=== PATIENT | male | born 1930 | race Caucasian/White ===

== ENCOUNTER 2016-06-12 20:29 | Emergency (ER) | payer OTHER, MEDICARE ==
[~2016-06-12 20:29] MED LIST: AMARYL 2 MG2 MG PO; AMARYL1 MG PO; AMARYL2 M1 PO; ASPIRIN EC81 M1 PO; ATENOLOL25 MG PO; ATENOLOL50 MG PO; COUMADIN 5 MG TA5 MG PO; COUMADIN2.5 M1 PO; GLIMEPIRIDE4 MG PO; IMDUR60 MG PO; ISORDIL PO; ISOSORBIDE MONO30 M1 PO; JANUVIA 50MG50 MG PO; LASIX20 M1 PO; LASIX20 MG PO; LYRICA25 MG PO; NAMENDA XR21 M1 PO; NAMENDA10 MG PO; NITROSTAT 0.4MG1 BO2 SL; SIMVASTATIN20 M2 PO; TOPROL XL 50MG50 MG PO; VALTREX 500MG500 MG PO; ZETIA10 M1 PO; ZOCOR20 MG PO; ZOVIRAX800 MG
[2016-06-12 20:34] VITALS: BP 110/67
--- NOTE | 2016-06-12 20:56 | ED GENERAL ADULT ---
History of Present Illness General Chief Complaint: Epistaxis/Nasal Foreign Body Stated Complaint: BIBA NOSEBLEED Source: patient Exam Limitations: no limitations Vital Signs & Intake/Output Vital Signs & Intake/Output Vital Signs Date Time Temp Pulse Resp B/P Pulse O2 O2 Flow FiO2 Ox Delivery Rate 06/12 2033 96.5 65 18 110/67 94 Room Air Allergies Coded Allergies: sitagliptin (UNKNOWN 08/08/15) Reconcile Medications Aspirin (Aspi-Cor) 81 MG CTB 1 TAB PO DAILY HEART (Reported) Ezetimibe (Zetia) 10 MG TAB 1 TAB PO DAILY CHOLESTEROL (Reported) Furosemide (Lasix) 20 MG TAB 1 TAB PO DAILY FLUID (Reported) Glimepiride (Amaryl) 2 MG TAB 1 TAB PO BID DIABETES (Reported) Isosorbide Mononitrate (Isosorbide Mononitrate ER) [address] 1 TAB PO DAILY ANGINA (Reported) MEMANTINE HCL (Namenda XR) 28 MG CER 1 CAP PO DAILY DEMENTIA (Reported) Metoprolol Succ XL (Toprol Xl 50MG Tab) 50 MG TAB 50 MG PO DAILY CARDIAC Pregabalin (Lyrica) 25 MG CAP 25 MG PO AT BEDTIME shingles pain Simvastatin 20 MG TAB 1 TAB PO DAILY CHOLESTEROL (Reported) Warfarin Sodium (Coumadin) 2.5 MG TAB 1 TAB PO AD BLOOD THINNER (Reported) Triage Note: BIBA FROM [facility] FOR NOSEBLEED X1 WEEK. BLEEDING WOULD NOT STOP TONIGHT. ON COUMADIN FOR RUE DVT. DID NOT RECEIVE 9PM DOSE TONIGHT Triage Nurses Notes Reviewed? yes Onset: Gradual Duration: intermittent Timing: recent history Injury Environment: home Severity: moderate No Modifying Factors: none HPI: Patient is an 85-year-old male who was recently diagnosed with a blood clot in his right upper extremity on Coumadin presenting to the emergency department with chief complaint of nosebleed has been intermittent for the past one week. Patient reports a take out worse this evening so [facility]. Denies any nausea vomiting fevers or chills. No headaches or visual changes. Denies any trauma to the nose. He reports that that usually I'd of the left naris. (ADALBERTO SHELDON) Past History Medical History Any Pertinent Medical History? 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 Hx Contributory? No (ADALBERTO SHELDON) Review of Systems Review of Systems Constitutional: Reports: no symptoms. Comments Review of systems: See HPI, All other systems negative. Constitutional, no chills fever or weight loss HEENT: No visual changes no sore throat no congestion Cardiovascular: No chest pain ,palpitation Skin, no jaundice no rashes Respiratory: No dyspnea cough sputum or hemoptysis GI: No nausea no vomiting : No dysuria No hematuria Muscle skeletal: no back pain, no neck pain, Neurologic: No numbness no confusion Psych: No stress anxiety or depression,. Heme/endocrine: On Coumadin Immunology: No splenectomy or history of AIDS (ADALBERTO SHELDON) Physical Exam Physical Exam General Appearance: well developed/nourished, no apparent distress, alert, awake , comfortable Comments: Well-developed well-nourished person in no acute distress HEENT: extraocular motion intact, no nystagmus. Pupils equally round and reactive to light and accommodation. Nose is atraumatic. , Dried blood in the left naris. External auditory canal and Tympanic membranes clear. Pharynx normal. No swelling or edema. Neck: Normal inspection Back: Nontender, no CVA tenderness. Full range of motion Cardiovascular: Regular rate and rhythms no murmurs rubs or gallops, normal JVP Respiratory: No respiratory distress. Extremity: No edema Neuro: Alert oriented x3, cranial nerves II through XII grossly intact. Skin: No appreciable rash on exposed skin, skin is warm and dry. Psych: Mood and affect is normal, memory and judgment is normal. Core Measures ACS in differential dx? No CVA/TIA Diagnosis: No Severe Sepsis Present: No Septic Shock Present: No (ADALBERTO SHELDON) Progress Differential Diagnoses I considered the following diagnoses in my evaluation of the patient: Anterior epistaxis, posterior epistaxis, hypocoagulable state Plan of Care: Current Medications Sig/Ruthie Start time Last Medication Dose Stop Time Status Admin Oxymetazoline HCl 2 SPRAY ONCE ONE 06/12 2099 UNVr (Afrin) 06/12 2100 Initial ED EKG: none Comments: GIVEN intranasal Afrin. Spoke with primary care physician, Dr. Spaulding. They will recheck INR tomorrow. (ADALBERTO SHELDON) Departure Departure Time of Disposition: 2116 Disposition: HOME OR SELF CARE Condition: Stable Clinical Impression Primary Impression: Epistaxis Referrals: LEONIDES SPAULDING MD (PCP/Family) Additional Instructions: Follow-up with Dr. Spaulding, they will repeat your INR tomorrow. Return for worsening symptoms or concerns. YOU MAY NEED ENT SONSULT IF SYMPTOMS PERSIST. Departure Forms: Customer Survey General Discharge Information (ADALBERTO SHELDON) PA/CIVIL PROJECT ENGINEER Co-Sign Statement Statement: ED Attending supervision documentation- [X] I saw and evaluated the patient. I have also reviewed all the pertinent lab results and diagnostic results. I agree with the findings and the plan of care as documented in the PA's/CIVIL PROJECT ENGINEER's documentation. [X] I have reviewed the ED Record and agree with the PA's/CIVIL PROJECT ENGINEER's documentation. [] Additions or exceptions (if any) to the PAs/CIVIL PROJECT ENGINEER's note and plan are summarized below: [] (REX RODRIGEZ,SUSANNE) Critical Care Note Critical Care Note Critical Care Time: non-applicable (ADALBERTO SHELDON)
== END 2016-06-12 22:07 ==
LOC: ERH 20:29
DX: R04.0 Epistaxis (principal)
CPT/HCPCS: 99282

== ENCOUNTER 2016-06-17 06:25 | Emergency (ER) | payer OTHER, MEDICARE ==
[~2016-06-17] VITALS: Ht 167.6 cm; Wt 68.0 kg
--- NOTE | 2016-06-17 06:45 | ED MVC/FALL/TRAUMA COMPLAINT ---
See Addendum History of Present Illness General Chief Complaint: Fall Stated Complaint: BIB FALL Source: patient, EMS Exam Limitations: no limitations Vital Signs & Intake/Output Vital Signs & Intake/Output Vital Signs Date Time Temp Pulse Resp B/P Pulse O2 O2 Flow FiO2 Ox Delivery Rate 06/17 0821 97.2 62 18 97/53 95 Room Air 06/17 0631 96.8 57 18 118/58 93 Room Air Allergies Coded Allergies: sitagliptin (UNKNOWN 08/08/15) Triage Nurses Notes Reviewed? yes Onset: Abrupt Duration: minute(s): (30) Timing: single episode today Severity: moderate Injuries/Fall Location: head Method of Injury: fall Loss of Consciousness: no loss of consciousness No Modifying Factors: none Associated Symptoms: dizziness, BRUISING HPI: 85 year old male who presents to the ER after a fall at the [facility]. The patient states he is not supposed to walk on his own but was trying to get out of bed and hit the right side of his head on the bed rail. No loss of consciousness. He is on coumadin. Patient denies neck pain, chest pain, back pain or hip pain. He has some chronic right shoulder pain from before the fall. He admits to some dizziness after the fall. (REX RODRIGEZ,SUSANNE) Reconcile Medications Allopurinol 100 MG TABLET 1 TAB PO DAILY UNKNOWN (Reported) Aspirin (Ecotrin*) 81 MG TABLET.DR 1 TAB PO DAILY HEART HEALTH (Reported) Atorvastatin Calcium 20 MG TABLET 1 TAB PO 1700 CHOLESTEROL (Reported) Ezetimibe (Zetia) 10 MG TABLET 1 TAB PO DAILY CHOLESTEROL (Reported) Finasteride 5 MG TABLET 1 TAB PO DAILY PROSTATE (Reported) Furosemide (Lasix) 20 MG TABLET 1 TAB PO DAILY WATER PILL (Reported) Gabapentin 100 MG CAPSULE 1 CAP PO TID UNKNOWN (Reported) Glimepiride (Amaryl) 2 MG TABLET 1 TAB PO BID DM (Reported) Insulin Lispro (Humalog) 100 UNIT/ML VIAL DIABETES (Reported) Isosorbide Mononitrate (Isosorbide Mononitrate ER) 30 MG TAB.ER.24H 1 TAB PO DAILY HEART (Reported) Loratadine 10 MG TABLET 1 TAB PO QPM ALLERGIES (Reported) Memantine HCl (Namenda XR) 21 MG CAP.SPR.24 1 CAP PO QPM DEMENTIA (Reported) Metoprolol Succinate 50 MG TAB.ER.24H 1.5 TAB PO DAILY HEART (Reported) Ranitidine (Ranitidine HCl) 150 MG TABLET 1 TAB PO BID GI (Reported) Simvastatin (Simvastatin*) 20 MG TABLET 1 TAB PO QPM CHOLESTEROL (Reported) Sodium Chloride ([place] Saline) 0.65 % SPRAY 1 SPRAY NASB BID NASAL (Reported) Sodium Chloride (Saline Mist) 0.65 % SPRAY 1 SPRAY DEMARCO 4 TIMES/DAY ALLERGIES (Reported) Warfarin Sodium (Coumadin) 2.5 MG TABLET 1 TAB PO 1700 BLOOD THINNER ( Reported) (JUAN CORBETT DO) Past History Travel History Traveled to [place] past 21 day No Medical History Any Pertinent Medical History? 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 Hx Contributory? No (SUSANNE HOOPER MD) Review of Systems Review of Systems Constitutional: Denies: chills, fever. Eyes: Denies: blurred vision. Ears, Nose, Throat, Mouth: Reports: no symptoms. Respiratory: Denies: cough, short of breath, sputum production. Cardiovascular: Denies: chest pain, palpitations. Gastrointestinal/Abdominal: Denies: abdominal pain. Genitourinary: Reports: no symptoms. Musculoskeletal: Reports: no symptoms. Skin: Reports: no symptoms. Neurological/Psychological: Reports: ataxia, headache (right sided). Denies: confusion. All Other Systems: Reviewed and Negative (SUSANNE HOOPER MD) Physical Exam Physical Exam General Appearance: well developed/nourished, alert, awake, mild distress Head: RIGHT FACIAL BRUISING, NO ORBITAL RIM TENDERNESS Eyes: Bilateral: normal appearance, PERRL, EOMI. Ears, Nose, Throat, Mouth: HARD OF HEARING Neck: normal inspection, supple, full range of motion Respiratory: normal breath sounds, chest non-tender, no respiratory distress Cardiovascular: regular rate/rhythm Peripheral Pulses: 2+ radial (R), 2+ radial (L) Gastrointestinal: soft, non-tender Extremities: normal range of motion, NO TENDERNESS WITH ROM ALL 4 EXTREMITIES Neurologic/Psych: no motor/sensory deficits, awake, alert Core Measures ACS in differential dx? No Severe Sepsis Present: No Septic Shock Present: No (SUSANNE HOOPER MD) Progress Differential Diagnosis: C/T/L spine injury, ICH, ARHYTHMIA Plan of Care: Orders Procedure Date/time Status Heart Healthy Diet 06/17 L Active TROPONIN LEVEL 06/17 650 Complete PARTIAL THROMBOPLASTIN TIME 06/17 650 Complete PROTHROMBIN TIME 06/17 650 Complete MAGNESIUM 06/17 650 Complete COMPREHENSIVE METABOLIC PANEL 06/17 650 Complete CBC WITHOUT DIFFERENTIAL 06/17 650 Complete EKG 06/17 06 Active Laboratory Tests 06/17/16 0701: Anion Gap 11, Estimated GFR 30 L, BUN/Creatinine Ratio 18.1, Glucose 127 H, Calcium 8.4, Magnesium 2.1, Total Bilirubin 0.9, AST 18, ALT 31, Alkaline Phosphatase 156 H, Troponin I < 0.01, Total Protein 6.9, Albumin 3.2 L, Globulin 3.7, Albumin/Globulin Ratio 0.9 L, PT 25.1 H, INR 2.41 H, APTT 36, CBC w Diff NO MAN DIFF REQ, RBC 3.16 L, MCV 94.8 H, MCH 30.9, RDW 17.4 H, MPV 6.8 L, Gran % 51.6, Lymphocytes % 25.4, Monocytes % 13.7 H, Eosinophils % 8.9 H, Basophils % 0.4, Absolute Granulocytes 3.2, Absolute Lymphocytes 1.6, Absolute Monocytes 0.8 H, Absolute Eosinophils 0.5, Absolute Basophils 0, PUBS MCHC 32.6 L Diagnostic Imaging: Viewed by Me: CT Scan. Discussed w/RAD: CT Scan. Hand-Off Endorsed To: JUAN CORBETT DO Endorsed Time: 0700 Pending: CT (SUSANNE HOOPER MD) Departure Departure Disposition: STILL A PATIENT Condition: Stable Clinical Impression Primary Impression: Head injury Referrals: LEONIDES CARBALLO MD (PCP/Family) Departure Forms: Customer Survey General Discharge Information (REX RODRIGEZ,SUSANNE) Departure Comments 06/17/16 9 AM The patient was signed out to me by Dr. Hooper. His head CT is negative. Labs are essentially unremarkable. I will give instructions regarding delayed hemorrhage. The patient will follow-up with his doctor in 72 hours. (JUAN CORBETT DO)
--- NOTE | 2016-06-17 07:28 | CT SCAN REPORT ---
EXAMINATION: NONCONTRAST HEAD CT NONCONTRAST CERVICAL SPINE CT INDICATION INFORMATION: Fall. Hit head on right side. On Coumadin. COMPARISON: 11/06/2011 TECHNIQUE: Separate noncontrast CT examinations of the head and cervical spine were performed. Coronal and sagittal images were created for each examination at the technologist workstation. FINDINGS: Head: There is no evidence of acute intracranial hemorrhage or territorial infarction. No abnormal mass effect or midline shift is seen. 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 Porter to white matter differentiation is otherwise well preserved. No extra-axial fluid collections are identified. No hydrocephalus. Proportional prominence of the ventricles and sulcal spaces is consistent with moderate volume loss. Patchy periventricular and deep white matter hypoattenuation is consistent with moderate small vessel ischemic changes. The osseous structures and soft tissues are normal. The mastoid air cells are well aerated. Mild opacification of the ethmoid air cells and right maxillary sinus. The remaining visualized paranasal sinuses are well aerated. Cervical spine: There is degenerative anterolisthesis of C4 on C5 and retrolisthesis of C5 on C6. There is straightening of the normal cervical lordosis. There is otherwise anatomic alignment of the vertebral bodies and posterior elements. The atlantoaxial and atlantooccipital articulations are intact. Vertebral body heights are maintained. There is multilevel intervertebral disc space narrowing with endplate osteophyte formation and facet arthropathy. No evidence of acute fracture. No prevertebral soft tissue swelling. There is biapical pleural thickening of the lungs with minimal paraseptal emphysema. The thyroid gland is unremarkable. IMPRESSION: 1. No acute intracranial findings. Moderate volume loss with small vessel ischemic change. 2. No acute fracture or malalignment of the cervical spine. Moderate degenerative changes.
[2016-06-17 07:41] LABS: ABSOLUTE BASOPHIL COUNT 0 /CUMM (0.0-0.2); ABSOLUTE EOSINOPHIL COUNT 0.5 /CUMM (0.0-0.7); ABSOLUTE GRANULOCYTE CT 3.2 /CUMM (1.4-6.5); ABSOLUTE LYMPH COUNT 1.6 /CUMM (1.2-3.4); ABSOLUTE MONOCYTE COUNT 0.8 /CUMM (0.10-0.60); BASOPHIL % 0.4 % (0.0-2.0); EOSINOPHIL % 8.9 % (0-5); GRANULOCYTE % 51.6 % (42.2-75.2); HEMATOCRIT 29.9 % (42-52); MEAN CORPUSCULAR HGB 30.9 PG (27.0-31.0); MEAN CORPUSCULAR HGB CONC 32.6 G/DL (33.0-37.0); MEAN CORPUSCULAR VOLUME 94.8 FL (80.0-94.0); MEAN PLATELET VOLUME 6.8 FL (7.4-10.4); PLATELET COUNT 231 /CUMM (130-400); RBC DISTRIBUTION WIDTH 17.4 % (11.5-14.5); RED BLOOD CELL CT 3.16 /CUMM (4.70-6.10); WHITE BLOOD CELL COUNT 6.1 /CUMM (4.8-10.8)
[2016-06-17] MEDS ORDERED: ATORVASTATIN CA20 M1 PO (08:01)
[2016-06-17] MEDS ORDERED: ALLOPURINOL100 M1 PO (08:01)
[2016-06-17] MEDS ORDERED: AYR SALINE50 ML NASB (08:03)
[2016-06-17] MEDS ORDERED: FINASTERIDE5 M1 PO (08:03)
[2016-06-17] MEDS ORDERED: GABAPENTIN100 M2 PO (08:04)
[2016-06-17] MEDS ORDERED: HUMALOG100 UNIT/2 SC (08:05)
[2016-06-17] MEDS ORDERED: LORATADINE10 M1 PO (08:06)
[2016-06-17] MEDS ORDERED: METOPROLOL SUCC50 M2 PO (08:07)
[2016-06-17] MEDS ORDERED: RANITIDINE HCL150 MG PO (08:10)
[2016-06-17] MEDS ORDERED: SALINE MIST44 ML NAS (08:11)
[2016-06-17 08:21] VITALS: BP 97/53
[2016-06-17 08:42] LABS: PT 25.1 SEC (9.4-12.5); PTT 36 SEC (25-37)
== END 2016-06-17 10:22 ==
LOC: ERH 06:25
PROVIDERS: Emergency Medicine
DX: S09.90XA Unspecified injury of head, initial encounter (principal); R42 Dizziness and giddiness; W06.XXXA Fall from bed, initial encounter; Z79.01 Long term (current) use of anticoagulants; Z79.82 Long term (current) use of aspirin; Z79.4 Long term (current) use of insulin; N18.3 Chronic kidney disease, stage 3 (moderate)
CPT/HCPCS: 93005; 93010

== ENCOUNTER 2016-09-15 22:32 | Inpatient (IN) | payer OTHER, MEDICARE ==
[~2016-09-15] VITALS: Ht 170.2 cm; Wt 74.0 kg
[~2016-09-15 22:32] MED LIST changes: +ALLOPURINOL100 M1 PO; +ATORVASTATIN CA20 M1 PO; +AYR SALINE50 ML NASB; +FINASTERIDE5 M1 PO; +GABAPENTIN100 M2 PO; +HUMALOG100 UNIT/2 SC; +LORATADINE10 M1 PO; +METOPROLOL SUCC50 M2 PO; +RANITIDINE HCL150 MG PO; +SALINE MIST44 ML NAS
--- NOTE | 2016-09-15 22:38 | ED DYSPNEA/ASTHMA COMPLAINT ---
History of Present Illness General Chief Complaint: General Adult Stated Complaint: BIBA WITH CONFUSION,PROBLEM BREATHI Source: patient Exam Limitations: confusion, dementia Vital Signs & Intake/Output Vital Signs & Intake/Output Vital Signs Date Time Temp Pulse Resp B/P B/P Pulse O2 O2 Flow FiO2 Mean Ox Delivery Rate 09/16 0056 101.7 108 24 113/68 93 Nasal 2.0L Cannula 09/15 2258 98.5 100 24 109/67 89 Room Air Allergies Coded Allergies: sitagliptin (UNKNOWN 08/08/15) Reconcile Medications Allopurinol 100 MG TABLET 1 TAB PO DAILY UNKNOWN (Reported) Atorvastatin Calcium 20 MG TABLET 1 TAB PO 1700 CHOLESTEROL (Reported) Finasteride 5 MG TABLET 1 TAB PO DAILY PROSTATE (Reported) Furosemide (Lasix) 20 MG TABLET 1 TAB PO DAILY WATER PILL (Reported) Gabapentin 100 MG CAPSULE 1 CAP PO TID UNKNOWN (Reported) Glimepiride (Amaryl) 2 MG TABLET 1 TAB PO BID DM (Reported) Insulin Lispro (Humalog) 100 UNIT/ML VIAL DIABETES (Reported) Isosorbide Mononitrate (Isosorbide Mononitrate ER) 30 MG TAB.ER.24H 1 TAB PO DAILY HEART (Reported) Loratadine 10 MG TABLET 1 TAB PO QPM ALLERGIES (Reported) Memantine HCl (Namenda XR) 21 MG CAP.SPR.24 1 CAP PO QPM DEMENTIA (Reported) Metoprolol Succinate 50 MG TAB.ER.24H 1.5 TAB PO DAILY HEART (Reported) Ranitidine (Ranitidine HCl) 150 MG TABLET 1 TAB PO BID GI (Reported) Sodium Chloride ([place] Saline) 0.65 % SPRAY 1 SPRAY NASB BID NASAL (Reported) Sodium Chloride (Saline Mist) 0.65 % SPRAY 1 SPRAY DEMARCO 4 TIMES/DAY ALLERGIES (Reported) Warfarin Sodium (Coumadin) 2.5 MG TABLET 1 TAB PO 1700 BLOOD THINNER ( Reported) Triage Nurses Notes Reviewed? yes Onset: Gradual Duration: hour(s):, constant Severity: mild Activities at Onset: none Prior Episodes/Possible Cause: occasional episodes Modifying Factors: Improves With: other (BETTER WITH 02). Associated Symptoms: cough HPI: 86-year-old gentleman from the residential history of A. fib, dementia, urinary retention, presents with confusion and hypoxia the past several hours. Per the medics, he is been more lethargic than usual. His O2 sat had dropped. He had no fevers chills nausea vomiting diarrhea chest pain. Past History Travel History Traveled to [place] past 21 day No Medical History Any Pertinent Medical History? see below for history Neurological: CVA, ALZHEIMERS DEMENTIA EENT: NONE Cardiovascular: aortic aneurysm, AFIB, hypertension, hyperlipidemia, [place] X3 STENTS A-FIB CABG Respiratory: emphysema Gastrointestinal: NONE Hepatic: NONE Renal: CKD STAGE 3 Musculoskeletal: NONE Psychiatric: NONE Endocrine: diabetes Blood Disorders: NONE Cancer(s): NONE SPICE CLEANER/Reproductive: NONE History of MRSA: No History of VRE: No History of CDIFF: No Surgical History Surgical History: CABG, cholecystectomy, Right knee repair Stents abdominal aortic aneurysm repair Psychosocial History Who do you live with Spouse Services at Home None What is your primary language Mongolian Family History Family History, If Any: SISTER FH: cancer FH: heart disease FATHER FH: heart attack, Onset: 60+. Hx Contributory? No Review of Systems Review of Systems Constitutional: Reports: no symptoms. EENTM: Reports: no symptoms. Respiratory: Reports: no symptoms. Cardiovascular: Reports: no symptoms. GI: Reports: no symptoms. Genitourinary: Reports: no symptoms. Musculoskeletal: Reports: no symptoms. Skin: Reports: no symptoms. Neurological/Psychological: Reports: no symptoms. Hematologic/Endocrine: Reports: no symptoms. Immunologic/Allergic: Reports: no symptoms. All Other Systems: Reviewed and Negative Physical Exam Physical Exam General Appearance: well developed/nourished, mild distress Head: atraumatic Eyes: Bilateral: normal appearance, PERRL, EOMI, other (PINPOINT PUPILS BILATERALLY). Ears, Nose, Throat: normal pharynx, normal ENT inspection Neck: normal inspection, supple, full range of motion Respiratory: rhonchi Cardiovascular: regular rate/rhythm Gastrointestinal: normal bowel sounds, soft, non-tender, no organomegaly Extremities: normal inspection, normal capillary refill, normal range of motion, no edema Neurologic/Psych: no motor/sensory deficits, awake, alert, oriented x 3 Skin: intact, normal color, warm/dry Core Measures ACS in differential dx? No Severe Sepsis Present: No Septic Shock Present: No Progress Differential Diagnosis: asthma, bronchitis, CHF, COPD, pneumonia, uti, sepsis Plan of Care: Orders Procedure Date/time Status Nothing by Mouth 09/16 B Active Saline Lock 09/16 113 Active Misc Message 09/16 113 Active ED Holding Orders 09/16 113 Active Admit to inpatient 09/16 113 Active Vital Signs 09/16 113 Active Code Status 09/16 113 Active BLOOD CULTURE 09/15 2349 Active BLOOD CULTURE 09/15 2299 Active CULTURE,URINE 09/15 2252 Active URINALYSIS 09/15 2252 Complete TROPONIN LEVEL 09/16 2251 Complete PARTIAL THROMBOPLASTIN TIME 09/16 2251 Complete PROTHROMBIN TIME 09/16 2251 Complete COMPREHENSIVE METABOLIC PANEL 09/16 2251 Complete CBC WITHOUT DIFFERENTIAL 09/16 2251 Complete EKG 09/16 2251 Active Current Medications Sig/Ruthie Start time Last Medication Dose Stop Time Status Admin Acetaminophen 1,000 MG ONCE ONE 09/16 114 UNVr (Ofirmev) 09/16 012 N/A 1 UNIT (No Carrier) Azithromycin 500 MG ONCE ONE 09/16 114 UNVr (Zithromax) 09/16 213 Sodium Chloride 250 ML (Normal Saline 0.9%) Ceftriaxone Sodium 1,000 MG ONCE ONE 09/16 114 UNVr (Rocephin) 09/17 115 Laboratory Tests 09/15/16 2340: Urine Color YEL, Urine Clarity CLEAR, Urine pH 7.0, Ur Specific [place] 1.015, Urine Protein 30 H, Urine Ketones NEG, Urine Nitrite NEG, Urine Bilirubin NEG, Urine Urobilinogen 0.2, Ur Leukocyte Esterase LARGE H, Ur Microscopic SEDIMENT EXAMINED, Urine RBC 1-3, Urine WBC PACKD H, Urine Bacteria FEW H, Urine Hemoglobin SMALL H, Urine Glucose NEG 09/15/16 2315: Anion Gap 11, Estimated GFR 30 L, BUN/Creatinine Ratio 17.1, Glucose 150 H, Calcium 8.7, Total Bilirubin 0.7, AST 24, ALT 39, Alkaline Phosphatase 178 H, Troponin I < 0.01, Total Protein 7.7, Albumin 3.6, Globulin 4.1, Albumin/ Globulin Ratio 0.9 L, PT 25.2 H, INR 2.42 H, APTT 36, CBC w Diff NO MAN DIFF REQ, RBC 3.52 L, MCV 93.2, MCH 30.4, RDW 19.0 H, MPV 6.4 L, Gran % 76.4 H, Lymphocytes % 11.6 L, Monocytes % 8.4, Eosinophils % 3.3, Basophils % 0.3, Absolute Granulocytes 5.2, Absolute Lymphocytes 0.8 L, Absolute Monocytes 0.6, Absolute Eosinophils 0.2, Absolute Basophils 0, PUBS MCHC 32.6 L Microbiology 09/16 2339 URINE ROUT: Urine Culture - RECD 09/16 2339 BLOOD: Blood Culture - RECD 09/15 2314 BLOOD: Blood Culture - RECD 09/16 2251 BLOOD: Blood Culture - CAN Cancelled: DUP.ORDER Diagnostic Imaging: Viewed by Me: Radiology Read, CT Scan. Discussed w/RAD: Radiology Read, CT Scan. Radiology Impression: head ct .... stable, chronic microangiopathy CXR Impression: bibasilar atelectasis... full report below. Initial ED EKG: afib... no acute change from prior. Comments: PATIENT: EVELIN CASTRO PRESENT AGE: 86 PATIENT ACCOUNT NO: [id number] : 29 LOCATION: ER ORDERING PHYSICIAN: EVENS RUELAS MD SERVICE DATE: 09/15/16 EXAM TYPE: RAD - XRY-PORTABLE CHEST XRAY EXAMINATION: XR PORTABLE CHEST CLINICAL INFORMATION: Cough, hypoxia COMPARISON: 05/12/2015 TECHNIQUE: Portable frontal view of the chest was obtained. FINDINGS: The cardiac silhouette remains enlarged. The patient is status post median sternotomy. Sternal wires appear intact. There are calcifications at the level of the aortic arch. There is persistent mild elevation of the left hemidiaphragm. There are bibasilar areas of atelectasis without definite focal consolidation. The upper lobes are clear. There is minimal biapical pleural-parenchymal thickening. No definite pleural effusion. IMPRESSION: Limited examination. No convincing radiographic evidence for acute pneumonia. Bibasilar atelectasis. DICTATED BY: ELLE PEDROZA MD DATE/TIME DICTATED:09/15/162319 PIT SLAGMAN:ESTRELLA DATE/TIME TRANSCRIBED:09/15/162319 CONFIDENTIAL, DO NOT COPY WITHOUT APPROPRIATE AUTHORIZATION. <Electronically signed in Other Vendor System> SIGNED BY: ELLE PEDROZA MD 09/15/162324 PATIENT: EVELIN CASTRO PRESENT AGE: 86 PATIENT ACCOUNT NO: [id number] : 29 LOCATION: ER ORDERING PHYSICIAN: EVENS RUELAS MD SERVICE DATE: 09/15/16 EXAM TYPE: CAT - CT HEAD WO IV CONTRAST EXAMINATION: CT HEAD WITHOUT CONTRAST CLINICAL INFORMATION: Mental status change. COMPARISON: Head CT June 17 2016 TECHNIQUE: Contiguous axial imaging was performed from the skull base to vertex without intravenous administration of contrast. FINDINGS: There is global cerebral volume loss. There is patchy hypoattenuation throughout the supratentorial white matter, likely chronic microangiopathy. A focus of hypoattenuation within the posterior aspect of the left cerebral hemisphere is stable since 2011 and likely chronic ischemic in etiology. 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 There is no intracranial hemorrhage, hydrocephalus, midline shift, or other herniation pattern. Porter to white matter differentiation is diffusely maintained without evidence of an evolved acute territorial infarct. The basilar cisterns are preserved. No significant soft tissue abnormality. No acute osseous abnormality. There is a fluid level within left maxillary sinus that can be correlated for clinical signs of acute sinusitis. IMPRESSION: - No acute intracranial abnormality. Stable chronic findings including chronic microangiopathy and global cerebral volume loss. - There is a fluid level within left maxillary sinus that can be correlated for clinical signs of acute sinusitis. DICTATED BY: JUAN WOODALL MD DATE/TIME DICTATED:09/15/162336 PIT SLAGMAN:ESTRELLA DATE/TIME TRANSCRIBED:09/15/162336 CONFIDENTIAL, DO NOT COPY WITHOUT APPROPRIATE AUTHORIZATION. <Electronically signed in Other Vendor System> SIGNED BY: JUAN WOODALL MD 09/15/16 5128 Departure Departure Disposition: STILL A PATIENT Condition: Stable Clinical Impression Primary Impression: Pneumonia Secondary Impressions: Renal failure, Sepsis, UTI (urinary tract infection) Referrals: LEONIDES CARBALLO MD (PCP/Family) Departure Forms: Customer Survey General Discharge Information Admission Note Spoke With: KOFFI RODRIGEZ,EVELIN Starks Documentation of Exam: Documentation of any treatments & extenuating circumstances including Concerns Regarding Discharge (functional status, medication knowledge or non-compliance, living conditions, etc.) that warrant an admission rather than observation: pt hypoxic with rhonchi on exam, febrile to 101.7.... also with evidence of uti, and meets criteria for sepsis.... high PORT score conferring significant mortality.... pt merits iv abx. 02 support, electrolyte management. Critical Care Note Critical Care Note Critical Care Time: 30-74 min
--- NOTE | 2016-09-15 22:57 | NUR ---
FROM [facility] PER [facility] INCREASED CONFUSION AND LOW SAT, PT REPORTS "HAVING A COLD FOR AWHILE, RA SAT IN ER 89%. PLACED ON 2 LITERS N/C ALERT TO PLACE, NAME UNSURE OF TIME AND DATE.
--- NOTE | 2016-09-15 23:20 | NUR ---
PT CONTINUALLY COUGHING SIMILIAR TO TICKLY TYPE COUGH.
--- NOTE | 2016-09-15 23:25 | RADIOLOGY REPORT ---
EXAMINATION: XR PORTABLE CHEST CLINICAL INFORMATION: Cough, hypoxia COMPARISON: 05/12/2015 TECHNIQUE: Portable frontal view of the chest was obtained. FINDINGS: The cardiac silhouette remains enlarged. The patient is status post median sternotomy. Sternal wires appear intact. There are calcifications at the level of the aortic arch. There is persistent mild elevation of the left hemidiaphragm. There are bibasilar areas of atelectasis without definite focal consolidation. The upper lobes are clear. There is minimal biapical pleural-parenchymal thickening. No definite pleural effusion. IMPRESSION: Limited examination. No convincing radiographic evidence for acute pneumonia. Bibasilar atelectasis.
[2016-09-15 23:28] LABS: ABSOLUTE BASOPHIL COUNT 0 /CUMM (0.0-0.2); ABSOLUTE EOSINOPHIL COUNT 0.2 /CUMM (0.0-0.7); ABSOLUTE GRANULOCYTE CT 5.2 /CUMM (1.4-6.5); ABSOLUTE LYMPH COUNT 0.8 /CUMM (1.2-3.4); ABSOLUTE MONOCYTE COUNT 0.6 /CUMM (0.10-0.60); BASOPHIL % 0.3 % (0.0-2.0); EOSINOPHIL % 3.3 % (0-5); GRANULOCYTE % 76.4 % (42.2-75.2); HEMATOCRIT 32.8 % (42-52); MEAN CORPUSCULAR HGB 30.4 PG (27.0-31.0); MEAN CORPUSCULAR HGB CONC 32.6 G/DL (33.0-37.0); MEAN CORPUSCULAR VOLUME 93.2 FL (80.0-94.0); MEAN PLATELET VOLUME 6.4 FL (7.4-10.4); PLATELET COUNT 264 /CUMM (130-400); RED BLOOD CELL CT 3.52 /CUMM (4.70-6.10); WHITE BLOOD CELL COUNT 6.8 /CUMM (4.8-10.8)
[2016-09-15 23:32] LABS: PT 25.2 SEC (9.4-12.5); PTT 36 SEC (25-37)
--- NOTE | 2016-09-15 23:48 | NUR ---
REQUEST FOR ST CATH, ABD LARGE BUT SOFT, ST CATH FOR 200CCS THICK CONCENTRATED URINE. TRIO SENT.
--- NOTE | 2016-09-15 23:48 | CT SCAN REPORT ---
EXAMINATION: CT HEAD WITHOUT CONTRAST CLINICAL INFORMATION: Mental status change. COMPARISON: Head CT June 17 2016 TECHNIQUE: Contiguous axial imaging was performed from the skull base to vertex without intravenous administration of contrast. FINDINGS: There is global cerebral volume loss. There is patchy hypoattenuation throughout the supratentorial white matter, likely chronic microangiopathy. A focus of hypoattenuation within the posterior aspect of the left cerebral hemisphere is stable since 2011 and likely chronic ischemic in etiology. 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 There is no intracranial hemorrhage, hydrocephalus, midline shift, or other herniation pattern. Porter to white matter differentiation is diffusely maintained without evidence of an evolved acute territorial infarct. The basilar cisterns are preserved. No significant soft tissue abnormality. No acute osseous abnormality. There is a fluid level within left maxillary sinus that can be correlated for clinical signs of acute sinusitis. IMPRESSION: - No acute intracranial abnormality. Stable chronic findings including chronic microangiopathy and global cerebral volume loss. - There is a fluid level within left maxillary sinus that can be correlated for clinical signs of acute sinusitis.
--- NOTE | 2016-09-16 00:10 | NUR ---
GLADIS CARE WITH ST CATH PT WITH DESITIN CAKED TO GROIN, SCROTUM RED, BUT NO OPEN AREAS.
--- NOTE | 2016-09-16 00:55 | NUR ---
AWAIT MED ORDERS ASLEEP NO RESP DISTRESS. REMAINS ON O2. NC NO COUGH AT THIS TIME
--- NOTE | 2016-09-16 01:12 | NUR ---
CONT TO AWAIT ADMISSION
--- NOTE | 2016-09-16 02:24 | NUR ---
Emergency Dept UC Admit Note: To be admitted to [facility] by DR. CARBALLO with LETHARGY as the diagnosis, to [id number] location. Nursing Senior Copywriter and admitting notified 09/16/16 at 0207
--- NOTE | 2016-09-16 02:40 | NUR ---
REPORT GIVEN TO FLOOR, ALERT TALKING, APPEARS MORE CLEAR.
--- NOTE | 2016-09-16 02:44 | History & Physical ---
See Addendum SHANTEL RODRIGEZ,[facility] [place] 09/16/16 0243: General Information and HPI MD Statement: I have seen and personally examined EVELIN CASTRO and documented this H&P. The patient is a 86 year old M who presented with a patient stated chief complaint of altered mental status. Source of Information: patient, old records Exam Limitations: unable to give history, not alert/orientated, dementia History of Present Illness: Mr. Castro is a 86 y/o M with PMHx of Alzheimer's disease, COPD on 2L NC, atrial fibrillation on warfarin, CAD s/p CABG and CKD stage III who [facility] with increasing confusion and lethargy. Patient is unable to provide any history so the history is obtained through [facility] and old records. Patient was found to be increasingly confused and lethargic at the [facility] the night prior to current presentation. According to [facility], he also had a low- grade temperature. EMS was called and patient was noted to be hypoxic en route to the ED. When examined in the ED, patient was confused and unable to offer any complaints. Allergies/Medications Allergies: Coded Allergies: sitagliptin (UNKNOWN 08/08/15) Home Med list Allopurinol 100 MG TABLET 1 TAB PO DAILY UNKNOWN (Reported) Atorvastatin Calcium 20 MG TABLET 1 TAB PO 1700 CHOLESTEROL (Reported) Finasteride 5 MG TABLET 1 TAB PO DAILY PROSTATE (Reported) Furosemide (Lasix) 20 MG TABLET 1 TAB PO DAILY WATER PILL (Reported) Gabapentin 100 MG CAPSULE 1 CAP PO TID UNKNOWN (Reported) Glimepiride (Amaryl) 2 MG TABLET 1 TAB PO BID DM (Reported) Insulin Lispro (Humalog) 100 UNIT/ML VIAL DIABETES (Reported) Isosorbide Mononitrate (Isosorbide Mononitrate ER) 30 MG TAB.ER.24H 1 TAB PO DAILY HEART (Reported) Loratadine 10 MG TABLET 1 TAB PO QPM ALLERGIES (Reported) Memantine HCl (Namenda XR) 21 MG CAP.SPR.24 1 CAP PO QPM DEMENTIA (Reported) Metoprolol Succinate 50 MG TAB.ER.24H 1.5 TAB PO DAILY HEART (Reported) Ranitidine (Ranitidine HCl) 150 MG TABLET 1 TAB PO BID GI (Reported) Sodium Chloride (Saline Mist) 0.65 % SPRAY 1 SPRAY DEMARCO 4 TIMES/DAY ALLERGIES (Reported) Warfarin Sodium (Coumadin) 2.5 MG TABLET 1 TAB PO BLOOD THINNER ( Reported) Warfarin Sodium (Coumadin) 2 MG TABLET 2 MG PO MON AND FRI BLOOD THINNER ( Reported) Past History Travel History Traveled to [place] past 21 day No Medical History Neurological: Alzheimer's disease, CVA, dementia EENT: cataracts Cardiovascular: aortic aneurysm, AFIB, CAD, hypertension, hyperlipidemia, myocardial infarction (3 times), PVD Respiratory: COPD Gastrointestinal: GERD, hiatal hernia Hepatic: NONE Renal: chronic kidney disease Musculoskeletal: gout Psychiatric: NONE Endocrine: diabetes Blood Disorders: NONE Cancer(s): NONE CONFERENCE SERVICES MANAGER/Reproductive: NONE History of MRSA: No History of VRE: No History of CDIFF: No Surgical History Surgical History: CABG, cholecystectomy, cardiac stent placement, abdominal aortic aneurysm repair, right knee repair, TURP Past Family/Social History Family History Relations & Conditions if any SISTER FH: cancer FH: heart disease FATHER FH: heart attack, Onset: 60+. BROTHER FH: heart disease MOTHER FH: diabetes mellitus FH: heart disease Psychosocial History Where do you live? [facility] Primary Language: Venezuelan Smoking Status: Former Smoker (3 PPD for ~70 Years) ETOH Use: denies use Illicit Drug Use: denies illicit drug use Functional Ability ADLs Needs Assist: dressing, eating, toileting, bathing. Ambulation: wheelchair IADLs Needs Assist: shopping, housework, finances, food prep, telephone, transportation, medication admin. Review of Systems Review of Systems Constitutional: Reports: no symptoms. EENTM: Reports: no symptoms. Cardiovascular: Reports: no symptoms. Respiratory: Reports: no symptoms. GI: Reports: no symptoms. Genitourinary: Reports: no symptoms. Musculoskeletal: Reports: no symptoms. Skin: Reports: no symptoms. Neurological/Psychological: Reports: no symptoms. Hematologic/Endocrine: Reports: no symptoms. Immunologic/Allergic: Reports: no symptoms. All Other Systems: Reviewed and Negative Exam & Diagnostic Data Last 24 Hrs of Vital Signs/I&O Vital Signs Date Time Temp Pulse Resp B/P B/P Pulse O2 O2 Flow FiO2 Mean Ox Delivery Rate 09/16 0300 93 Nasal 2.0L Cannula 09/16 0250 99.1 77 22 94/56 95 Nasal 2.0L Cannula 09/16 0233 99.1 74 20 95 Nasal 2.0L Cannula 09/16 0132 101.7 09/16 0056 101.7 108 24 113/68 93 Nasal 2.0L Cannula 09/158 98.5 100 24 109/67 89 Room Air Intake & Output 09/16 0800 09/16 0000 09/15 1600 Intake Total Output Total 200 Balance -200 Output, Urine 200 Physical Exam General Appearance Alert, Confused, Oriented to Person But Not Place or Time, Follows Commands HEENT Dry Mucous Membranes Neck Supple Cardiovascular Regular Rate, Normal S1, Normal S2 Lungs Clear to Auscultation Abdomen Soft, No Tenderness, Positive Bowel Sounds Extremities No Clubbing, No Cyanosis, No Edema Last 24 Hrs of Labs/Nicolas: Laboratory Tests 09/15/162339: Urine Color YEL, Urine Clarity CLEAR, Urine pH 7.0, Ur Specific [place] 1.015, Urine Protein 30 H, Urine Ketones NEG, Urine Nitrite NEG, Urine Bilirubin NEG, Urine Urobilinogen 0.2, Ur Leukocyte Esterase LARGE H, Ur Microscopic SEDIMENT EXAMINED, Urine RBC 1-3, Urine WBC PACKD H, Urine Bacteria FEW H, Urine Hemoglobin SMALL H, Urine Glucose NEG 09/15/162314: Anion Gap 11, Estimated GFR 30 L, BUN/Creatinine Ratio 17.1, Glucose 150 H, Calcium 8.7, Total Bilirubin 0.7, AST 24, ALT 39, Alkaline Phosphatase 178 H, Troponin I < 0.01, Total Protein 7.7, Albumin 3.6, Globulin 4.1, Albumin/ Globulin Ratio 0.9 L, PT 25.2 H, INR 2.42 H, APTT 36, CBC w Diff NO MAN DIFF REQ, RBC 3.52 L, MCV 93.2, MCH 30.4, RDW 19.0 H, MPV 6.4 L, Gran % 76.4 H, Lymphocytes % 11.6 L, Monocytes % 8.4, Eosinophils % 3.3, Basophils % 0.3, Absolute Granulocytes 5.2, Absolute Lymphocytes 0.8 L, Absolute Monocytes 0.6, Absolute Eosinophils 0.2, Absolute Basophils 0, PUBS MCHC 32.6 L Microbiology 09/16 0333 URINE ROUT: Urine Culture - CAN Cancelled: Cancelled via OE: WILL DO ADD ON 09/16 2339 URINE ROUT: Urine Culture - RECD 09/16 2339 BLOOD: Blood Culture - RECD 09/15 2314 BLOOD: Blood Culture - RECD 09/16 2251 BLOOD: Blood Culture - CAN Cancelled: DUP.ORDER Diagnostic Data CXR Results Limited examination. No convincing radiographic evidence for acute pneumonia. Bibasilar atelectasis. Other Results CT HEAD: - No acute intracranial abnormality. Stable chronic findings including chronic microangiopathy and global cerebral volume loss. - There is a fluid level within left maxillary sinus that can be correlated for clinical signs of acute sinusitis. Assessment/Plan Assessment: 86 y/o M with PMHx of Alzheimer's disease, COPD on 2L NC, atrial fibrillation on warfarin, CAD s/p CABG and CKD stage III who [facility] with increasing confusion and lethargy. #AMS: Likely secondary to UTI superimposed on underlying dementia. CXR with no evidence of pneumonia. * NPO pending swallow eval. * PT evaluation. * Aspiration and fall precautions. * Hold qnjtu-zo-ifxolyvgt gabapentin 100 mg PO TID in the setting of lethargy. #UTI: Current presentation concerning for UTI given urinalysis with pyuria and positive leukocyte esterase although patient is afebrile and without leukocytosis. UCx grew Pseudomonas aeruginosa in October 2015. S/p 1 g of IV ceftriaxone in the ED. * Start ceftazidime 1 g Q12H given history of Pseudomonas aeruginosa in the urine. #YRIS on CKD stage III: Creatinine 2.1 on admission, significantly increased from baseline of around 1.8. Likely prerenal in the setting of UTI and dehydration. * Hydrate with D5NS @ 100 cc/hr. * Avoid nephrotoxic medications. * Repeat BMP in the AM. #Hyperkalemia: K 5.7 Likely secondary to renal insufficiency. EKG with no features of hyperkalemia. * Administer 1 dose of Kayexalate KS. * Repeat BMP in the AM. #Insulin dependent T2DM: Takes glimepiride 2 mg PO BID and Lispro sliding scale. * Hold oral hypoglycemic agents while inpatient. * Accu-checks and sliding scale Novolin Q6H. #Atrial fibrillation: Takes 2.5 mg of warfarin daily except Mondays and Fridays when he takes 2 mg instead. * Continue iawix-uw-shxiihxok metoprolol succinate 75 mg PO daily for rate control. * Monitor INR daily and dose warfarin accordingly to keep INR between 2-3. #CAD: S/p CABG and stent placement. * Continue fulsh-pz-puhpipbgp atorvastatin 20 mg PO daily and Imdur 30 mg PO daily. #Dementia: Secondary to Alzheimer's disease. Takes memantine XR 21 mg PO QPM. * Memantine 10 mg PO BID while inpatient. #BPH: * Continue yahds-hf-zpncygkkn finasteride 5 mg PO daily. #Gout: * Continue itamh-bw-oixltcnid allopurinol 100 mg PO daily. #Constipation: * Dulcolax suppository QHS PRN. Diet: NPO DVT PPx: Warfarin and ALPs CODE: DNR/DNI As Ranked By This Provider Problem List: 1. UTI (urinary tract infection) 2. Altered mental status 3. Acute renal failure superimposed on stage 3 chronic kidney disease 4. Gout 5. Hyperkalemia 6. Insulin dependent type 2 diabetes mellitus 7. Atrial fibrillation 8. CAD (coronary artery disease) 9. S/P CABG (coronary artery bypass graft) 10. Dementia 11. BPH (benign prostatic hyperplasia) 12. Alzheimer's disease Core Measures/Miscellaneous Acute Coronary Syndrome ACS Diagnosis: No Cerebrovascular Accident CVA/TIA Diagnosis: No Congestive Heart Failure CHF Diagnosis: No Venous Thromboembolism VTE Risk Factors: Acute medical illness, Age > 40 [facility] d/t: No contraindications No VTE Pharm Prophylaxis d/t: No contraindications VTE Diagnosis: No VTE Type: NONE VTE Confirmed by (Test): NONE Severe Sepsis Severe Sepsis Present: No Septic Shock Septic Shock Present: No Miscellaneous Documentation Attending Case Discussed With: LEONIDES CARBALLO MD Primary Care Physician: LEONIDES CARBALLO MD Patient sees these Specialists Urologist Rosalio Aponte MD Vocational Rehabilitation Supervisor Jair Maguire MD Hydrotherapist Johan Keenan MD Level of Patient Care: General Medicine TONY GUZMAN 09/16/16 0245: Resident Review Statement Resident Statement: examined this patient, discussed with agribusiness internship, agreed with agribusiness internship, discussed with family, reviewed EMR data (avail), discussed with nursing , discussed with case mgmt, reviewed images, amended to note Other Findings: 86-year-old man, resident of [facility], transferred to ED for increased lethargy and confusion, fever and poor performance. Mr. Castro has PMH significan for CVA, COPD, AAA, HTN,HLP, MO 3, s/p CABG and stent placement, A.fib on Coumadin,emphysema, CKD stage III, Alzheimer's dementia, diabetes, and hematuria, which was resolved by spot cauterization. In the ED he was initially hypoxicm down to 89% in RA, and was startted on 2lit NC. Subsequently, patient became febrile, w/highest temp of 101.7 F. Initaila set of bloodwork in the ED also highlighted YRIS and hyperkalemia and isolated elevation of ALP. His U/A was activewith large leukocyete estrase + and packed with WBC nut negative nitrate. Review of system: Review of system is limited ,Confused, oriented to person not to time and place; vital signs: Stable;PH/EX: Alert,Confused and disoriented, following verbal commands. heet: Mucous membranes are dry,PERR; CV: S1-S2 no murmur, lungs clear, the remainder of the physical exam was unremarkable. Remarkable lab values: Potassium 5.7, BUN 36, creatinine 2.1 (baseline 1.8), troponin is less than 0.01 , alkaline phosphatase 178, WBC 6.8 with left shift no bandemia, H&H: 10.7/32.8, platelet 264, INR 2.42, UA: Positive leukocyte esterase, packed with WBC, nitrate negative. Chest x-ray: Not convincing for pneumonia bibasilar atelectasis Assessment and plan 76-year-old gentleman with multiple comorbidities and significant past medical history was admitted for increasing lethargic was possibly secondary to urinary tract infection. List of active problems #1 increasing lethargy and confusion possibly in the setting of end stage dementia and possible metabolic encephalopathy as evidenced by combination of dehydration and a TIA and urinary tract infection. * Admit to general medical floor * Starts gentle IV hydration * Nothing by mouth * Swallow eval in the a.m. * PT evaluation in the morning * Aspiration precaution * Fall precaution #2 Urinary tract infection: Resident of [facility] with history of urinary tract infection with Pseudomonas aeruginosa. * IV Fortaz * Follow urine culture results #3 Acute kidney injury on chronic kidney disease: Was possibly in the setting of prerenal acidemia (increased BUN/creatinine ratio) and urinary tract infection. No evidence of urinary obstruction. * Continue IV hydration with D5 normal saline * Hold Lasix until resolution of YRIS * Repeat labs in the a.m. * If did not improve with proper hydration and obtain renal ultrasound and consult nephrology #4 Hyperkalemia: History of hyperkalemia, Most possible in the setting of CKD and Yris. No EKG changes related to hyperkalemia. * Calcium gluconate 1 g * IV insulin and dextrose (immediately) * KS K-oxalates * Repeat labs in the a.m. #5 History of CAD-stable * Continue aspirin 325 mg * Continue atorvastatin 20 mg * Continue indoor 30 mg by mouth daily * Continue metoprolol succinate 75 mg by mouth daily * Nitroglycerin sublingual 0.4 mg as needed for chest pain #6 History of diabetes mellitus * Nothing by mouth * Insulin Novolin for NPO patient * Fingersticks every 6 #7 History of atrial fibrillation * Continue metoprolol succinate 75 mg by mouth daily * Continue warfarin for anticoagulation: 2 mg warfarin on Friday and Friday and 2.5 mg rest of the days * Check daily INR #8 History of constipation * suppository Dulcolax as needed DVT prophylaxis-warfarin Pain-IV Tylenol every 4 for pain
--- NOTE | 2016-09-16 02:59 | NUR ---
DR. GUZMAN CALLED PT PTS BP BUT HR, TEMP DOWN NO NEW ORDERS CLEARED TO SENT TO FLOOR.
--- NOTE | 2016-09-16 03:30 | NUR ---
NURSING NOTE: PATIENT ARRIVED TO FLOOR AY 0245 VIA STRETCHER FROM ED AND SETTLED INTO BED. A&O X2, FORGETFUL AND TANACROSS. VS BP 94/56, HR 77 RR 22 T 99.1 O2 SAT 93% ON 2L NC. MD STANLEY MADE AWARE. PATIENT IN NO ACUTE DISTRESS, NO COMPLAINTS OF PAIN AT THIS TIME. NPO PENDING SWALLOW EVAL IN AM. ORIENTED PATIENT TO ROOM, STAFF, AND CALL RODRIGUEZ. BED LOW & LOCKED, ALPS IN PLACE, FALL PRECAUTIONS AND ASPERATION PRECAUTIONS IN PLACE. CALL LIGHT IN REACH. WILL CONTINUE TO MONITOR.
[2016-09-16] MEDS ORDERED: COUMADIN2 M1 PO (04:38)
--- NOTE | 2016-09-16 07:00 | NUR ---
NURSING NOTE: PATIENT HAS OWN PILLOWS AND BLANKETS ON BED FROM NURSING NOTE. 3 PILLOWS AND 1 BLANKET AT THIS TIME. ALL PILLOWS HAVE NAME WRITTEN ON THEM. BLANKET LIGHT BROWN IN COLOR.
--- NOTE | 2016-09-16 07:37 | PN- Housestaff ---
Subjective Follow-up For: Lethargy and confusion, found to have positive U/A and has grown Psuedomonas in the past. Subjective: Overnight, blood pressure was borderline. This AM, repeat blood pressure was 90/ 60. Patient reports cough and difficulty breathing. Review of Systems Constitutional: Reports: see HPI. Objective Last 24 Hrs of Vital Signs/I&O Vital Signs Date Time Temp Pulse Resp B/P B/P Pulse O2 O2 Flow FiO2 Mean Ox Delivery Rate 09/16 0300 93 Nasal 2.0L Cannula 09/16 0250 99.1 77 22 94/56 95 Nasal 2.0L Cannula 09/16 0233 99.1 74 20 95 Nasal 2.0L Cannula 09/16 0132 101.7 09/16 0056 101.7 108 24 113/68 93 Nasal 2.0L Cannula 09/15 2258 98.5 100 24 109/67 89 Room Air Intake & Output 09/16 1600 09/16 0800 09/16 0000 Intake Total 210 Output Total 200 Balance 10 Intake, IV 210 Intake, Oral 0 Number 0 Bowel Movements Output, Urine 200 Patient 165 lb Weight Physical Exam General Appearance: Alert, Cooperative, not oriented to time, place or person Cardiovascular: Regular Rate, Normal S1, Normal S2 Lungs: bibasilar crackles heard. Abdomen: Normal Bowel Sounds, Soft, No Tenderness, abdominal hernia present around the umbilical region on coughing Neurological: Normal Gait, Normal Speech, Strength at 5/5 X4 Ext, Normal Tone Extremities: No Edema Current Medications: Current Medications Sig/Ruthie Start time Last Medication Dose Route Stop Time Status Admin Acetaminophen 0 .STK-MED ONE 09/16 133 DC IV Acetaminophen 1,000 MG ONCE ONE 09/16 114 DC 09/16 N/A 1 UNIT IV 09/16 128 0132 Allopurinol 100 MG DAILY 09/16 1000 AC PO Atorvastatin Calcium 20 MG 1700 09/16 1700 AC PO Azithromycin 500 MG ONCE ONE 09/16 Sodium Chloride 250 ML IV 09/16 213 0139 Bisacodyl 10 MG AT BEDTIME NEED.. 09/16 0400 AC AL Ceftazidime 1,000 MG Q12 09/16 0311 UNVr IV Ceftriaxone Sodium 0 .STK-MED ONE 09/16 138 DC .ROUTE Ceftriaxone Sodium 1,000 MG ONCE ONE 09/16 114 DC 09/16 IV 05/22 0116 0139 Dextrose/Sodium 1,000 ML Q10H 09/16 0430 AC 09/16 Chloride IV 0508 Famotidine 20 MG DAILY 09/16 1000 AC PO Finasteride 5 MG DAILY 09/16 1000 AC PO Gabapentin 100 MG TID 09/16 1000 CAN PO Insulin Human Regular 0 Q6 09/16 0600 AC SC Isosorbide 30 MG DAILY 09/16 1000 AC Mononitrate PO Memantine 10 MG BID 09/16 2200 AC PO Metoprolol Succinate 75 MG DAILY 09/16 1000 AC PO Sodium Chloride 1 SPRAY 4 TIMES/DAY 09/16 0343 AC 09/16 DEMARCO 0542 Sodium Chloride 1,000 ML BOLUS ONE 09/16 0300 DC 09/16 IV 09/16 0459 0301 Sodium Polystyrene 60 ML ONCE ONE 09/16 0400 DC 09/16 Sulfonate AL 09/16 0401 0542 Warfarin Sodium 2 MG COUMADIN 1700 ONE 09/16 1700 AC PO 09/16 1701 Last 24 Hrs of Lab/Nicolas Results Last 24 Hrs of Labs/Mics: Laboratory Tests 09/16/16 0640: Sodium Pending, Potassium Pending, Chloride Pending, Carbon Dioxide Pending, Anion Gap Pending, BUN Pending, Creatinine Pending, BUN/Creatinine Ratio Pending , PT Pending, INR Pending, CBC w Diff Pending, WBC Pending, RBC Pending, Hgb Pending, Hct Pending, MCV Pending, MCH Pending, RDW Pending, Plt Count Pending, MPV Pending, PUBS MCHC Pending 09/15/16 2340: Urine Color YEL, Urine Clarity CLEAR, Urine pH 7.0, Ur Specific [place] 1.015, Urine Protein 30 H, Urine Ketones NEG, Urine Nitrite NEG, Urine Bilirubin NEG, Urine Urobilinogen 0.2, Ur Leukocyte Esterase LARGE H, Ur Microscopic SEDIMENT EXAMINED, Urine RBC 1-3, Urine WBC PACKD H, Urine Bacteria FEW H, Urine Hemoglobin SMALL H, Urine Glucose NEG 09/15/16 2315: Anion Gap 11, Estimated GFR 30 L, BUN/Creatinine Ratio 17.1, Glucose 150 H, Calcium 8.7, Total Bilirubin 0.7, AST 24, ALT 39, Alkaline Phosphatase 178 H, Troponin I < 0.01, Total Protein 7.7, Albumin 3.6, Globulin 4.1, Albumin/ Globulin Ratio 0.9 L, PT 25.2 H, INR 2.42 H, APTT 36, CBC w Diff NO MAN DIFF REQ, RBC 3.52 L, MCV 93.2, MCH 30.4, RDW 19.0 H, MPV 6.4 L, Gran % 76.4 H, Lymphocytes % 11.6 L, Monocytes % 8.4, Eosinophils % 3.3, Basophils % 0.3, Absolute Granulocytes 5.2, Absolute Lymphocytes 0.8 L, Absolute Monocytes 0.6, Absolute Eosinophils 0.2, Absolute Basophils 0, PUBS MCHC 32.6 L Microbiology 09/16 0333 URINE ROUT: Urine Culture - CAN Cancelled: Cancelled via OE: WILL DO ADD ON 09/16 2339 URINE ROUT: Urine Culture - RECD 09/16 2339 BLOOD: Blood Culture - RECD 09/15 2314 BLOOD: Blood Culture - RECD 09/16 2251 BLOOD: Blood Culture - CAN Cancelled: DUP.ORDER Lines/Diet/Fluids Lines: peripheral lines Assessment/Plan Assessment: 86 y/o M with PMHx of Alzheimer's dementia, atrial fibrillation on warfarin and CKD stage III who [facility] with increasing confusion and lethargy. Problem List: Acute hypoxic respiratory failure 2/2 possible PNA Sepsis 2/2 UTI vs PNA Hyperkalemia, now resolved CAD s/p CABG CVA HTN HLD COPD Afib on Coumadin CKD stage 3 DMT2 Alzheimers dementia Plan: - Continue to monitor in GM for now. - Febrile overnight, with borderline blood pressure. Currently on Ceftazidime for UTI. - CAT scan of the chest without contrast as patient's oxygen requirement is increasing. He did receive one dose of Ceftriaxone and Azithromycin on admission in the ED. - Hold home medications for now, in view of borderline blood pressure and NPO pending eval. - Swallow eval pending. - DVT PPx: Coumadin per INR - Code Status: DNR/DNI Problem List: 1. Altered mental status Pain Ratin Pain Location: None Pain Goal: Pain 4 or less Pain Plan: Per EMR Tomorrow's Labs & Rationales: CBC to monitor for infection DVT/Prophylaxis: pharmacological
[2016-09-16 08:32] LABS: PT 25.5 SEC (9.4-12.5)
[2016-09-16 08:55] LABS: ABSOLUTE BASOPHIL COUNT 0 /CUMM (0.0-0.2); ABSOLUTE EOSINOPHIL COUNT 0.1 /CUMM (0.0-0.7); ABSOLUTE GRANULOCYTE CT 3.1 /CUMM (1.4-6.5); ABSOLUTE LYMPH COUNT 0.9 /CUMM (1.2-3.4); ABSOLUTE MONOCYTE COUNT 0.7 /CUMM (0.10-0.60); BASOPHIL % 0.5 % (0.0-2.0); EOSINOPHIL % 2.1 % (0-5); GRANULOCYTE % 64.8 % (42.2-75.2); HEMATOCRIT 28.9 % (42-52); MEAN CORPUSCULAR HGB 30.7 PG (27.0-31.0); MEAN CORPUSCULAR HGB CONC 32.8 G/DL (33.0-37.0); MEAN CORPUSCULAR VOLUME 93.7 FL (80.0-94.0); MEAN PLATELET VOLUME 6.8 FL (7.4-10.4); PLATELET COUNT 217 /CUMM (130-400); RBC DISTRIBUTION WIDTH 18.7 % (11.5-14.5); RED BLOOD CELL CT 3.09 /CUMM (4.70-6.10); WHITE BLOOD CELL COUNT 4.8 /CUMM (4.8-10.8)
[2016-09-16 09:11] VITALS: BP 90/60
--- NOTE | 2016-09-16 09:16 | NUR ---
NURSING NOTE: AM VITALS TAKEN AT THIS TIME. BP 90/60, HR 88, TEMP 98.3, RESP. 24, O2 SAT. 84% ON 2L VIA NC. PATIENT'S OXYGEN INCREASED TO 4L NC AT THIS TIME. RESIDENT 033 AT BEDSIDE FOR VITALS AND O2 CHANGE. CRACKELS NOTED AT BASES OF LUNGS. NEW ORDERS TO DECREASE IV FLUIDS TO 75ML/HR AT THIS TIME. CT SCAN TO BE OBTAINED. LACTIC ACID TO BE DRAWN. VITALS TO BE TAKEN AGAIN IN 1HR. PATIENT CURRENTLY HAS NON-PRODUCTIVE COUGH. NURSING EXERCISE SPECIALIST AWARE. WILL CONTINUE TO MONITOR.
[2016-09-16 10:19] VITALS: BP 100/58
--- NOTE | 2016-09-16 10:55 | NUR ---
PHYSICAL THERAPY- CONSULT RECEIVED, CHART REVIEWED. S/W NSG WHO ASKED TO DEFER EVAL AT THIS TIME. PT W/ CT SCAN ORDERED, ?SEPSIS. WILL DEFER EVAL AT THIS TIME AND FOLLOW APPROPRIATE.
--- NOTE | 2016-09-16 11:00 | NUR ---
NURSING NOTE: PATIENT LEFT FLOOR VIA STRETCHER WITH DISTRIBUTION FOR CT SCAN. WILL AWAIT RETURN.
--- NOTE | 2016-09-16 11:25 | NUR ---
NURSING NOTE: INDUSTRY ANALYST CALLED THIS RN STATING THE PATIENT IS COMPLAINING THAT HE CANNOT BREATH. NURSING STAFF IN CT CHECKED PATIENT. O2 SATURATION REPORTED TO BE 94% ON 4L NC. PATIENT TO BE TRANSPORTED BACK TO ROOM WITH DISTRIBUTION WILL AWAIT RETURN.
--- NOTE | 2016-09-16 12:14 | CT SCAN REPORT ---
EXAMINATION: CT CHEST WITHOUT CONTRAST CLINICAL INFORMATION: Cough and oxygen requirement. Evaluate for pneumonia. Chest radiograph inconclusive. COMPARISON: CXR from 09/15/2016. Chest CT from 02/13/2012. TECHNIQUE: Multidetector volumetric CT imaging of the chest was performed. Axial MIP volume rendering provided. Sagittal and coronal reformatted images were obtained. DLP: 412 mGy-cm FINDINGS: LUNGS AND PLEURA: Lungs are suboptimally evaluated due to respiratory motion there is chronic wall calcification of the tracheobronchial tree -- a relatively common finding in elderly patients. Bronchial prado appear thickened in both lungs, particularly lower lobes. Mild centrilobular and paraseptal emphysema. Hazy opacity in dependent aspect of each lower lobe, suggestive of atelectasis. Also, there is hazy opacity, suggestive of atelectasis, in the inferior lingula. There are micronodular opacities in the right upper lobe (images 140-190, series 4) -- a finding usually caused by infectious bronchiolitis. Mild pleural-based scarring is present at the lung apices. There appears to be interlobular septal thickening in both lungs, as well, but this is suboptimally evaluated due to respiratory motion. No pleural effusion. MEDIASTINUM: Cardiomegaly and surgical changes from prior coronary artery bypass grafting. There is extensive atherosclerotic calcification of the coronary arteries. Thoracic aorta is calcified and without aneurysm. No pericardial effusion. The esophagus is unremarkable. Thyroid gland is suboptimally evaluated due to motion degradation of images. LYMPHATICS: No pathologic sized axillary or hilar lymph nodes. There are chronically enlarged lymph nodes within the mediastinum. A right lower paratracheal lymph node is approximately 1.4 cm short axis dimension (compared to 1.3 cm on 02/13/2012). A subcarinal lymph node is 1.4 cm AP (compared to 1.2 cm on 02/13/2012). The largest lymph node at the level of the aortopulmonary window is 1.5 cm short axis dimension (compared to 1.2 cm on 02/13/2012). UPPER ABDOMEN: Adrenal glands are unremarkable. Multiple bilateral renal cortical cysts, largest on the left measuring 11.3 cm AP, 8.8 cm transverse. OSSEOUS STRUCTURES: No acute findings in the degenerated thoracic spine. No aggressive osseous lesions. IMPRESSION: 1. Mild pulmonary emphysema. 2. Micronodular opacities are present within the right upper lobe -- a finding usually caused by infectious bronchiolitis. 3. Atherosclerotic disease of coronary arteries and cardiomegaly, status post CABG. Mild interlobular septal thickening in both lungs, suboptimally evaluated due to respiratory motion. Mild interstitial edema is suspected. 4. Chronic lymphadenopathy within the mediastinum.
--- NOTE | 2016-09-16 12:29 | Patient Discharge Instructions ---
Discharge Instructions General Discharge Information You were seen/treated for: Urinary Tract Infection Special Instructions: Please make an appointment to see your PCP within one week from discharge. Activity Activity Self Limited: Yes Acute Coronary Syndrome Inclusion Criteria At DC or during hospital stay patient has or had the following: ACS DIAGNOSIS No Discharge Core Measures Meds if any: Prescribed or Continued at Discharge Meds if any: NOT Prescribed or Continued at Discharge Congestive Heart Failure Inclusion Criteria At DC or during hospital stay patient has or had the following: CHF DIAGNOSIS No Discharge Core Measures Meds if any: Prescribed or Continued at Discharge Meds if any: NOT Prescribed or Continued at Discharge Cerebrovascular accident Inclusion Criteria At DC or during hospital stay patient has or had the following: CVA/TIA Diagnosis No Discharge Core Measures Meds if any: Prescribed or Continued at Discharge Meds if any: NOT Prescribed or Continued at Discharge Venous thromboembolism Inclusion Criteria VTE Diagnosis No VTE Type NONE VTE Confirmed by (Test) NONE Discharge Core Measures - Per Current guidelines, there needs to be overlap - treatment for the first 5 days of Warfarin therapy. - If discharged on Warfarin prior to 5 days of - overlap therapy, the patient will need to be - assessed for post discharge needs including - *Post discharge parental anticoagulation - *Warfarin and/or parental anticoagulation education - *Follow up date to check INR post discharge At least 5 days overlap therapy as Inpatient No Meds if any: Prescribed or Continued at Discharge Note: Overlap Therapy is Warfarin and Anticoagulant Meds if any: NOT Prescribed or Continued at Discharge
--- NOTE | 2016-09-16 12:31 | Discharge Summary ---
See Addendum Visit Information Visit Dates Admission Date: 09/16/16 Discharge Date: 09/20 Hospital Course Course Attending Physician: LEONIDES CARBALLO MD Primary Care Physician: LEONIDES CARBALLO MD Consulting Request: Consulting Specialty: Infectious Disease Consulting Physician: Dr. Fredis Mills MD Hospital Course: Mr. Peñaloza is a 86 y/o M with PMHx of Alzheimer's dementia, COPD on 2L NC, atrial fibrillation on warfarin and CKD stage III who is [facility] with increasing confusion and lethargy. In the ED he was initially hypoxic down to 89% in RA, and was started on 2L NC. Subsequently, patient became febrile, w/highest temp of 101.7 F. Initaila set of bloodwork in the ED also highlighted SHERMAN and hyperkalemia and isolated elevation of ALP. His U/A was active with large leukocyete estrase + and packed with WBC nut negative nitrate. Review of system: Review of system is limited ,Confused, oriented to person not to time and place; vital signs: Stable;PH/EX: Alert, Confused and disoriented, following verbal commands. heet: Mucous membranes are dry,PERR; CV: S1-S2 no murmur, lungs clear, the remainder of the physical exam was unremarkable. Remarkable lab values: Potassium 5.7, BUN 36, creatinine 2.1 (baseline 1.8), troponin is less than 0.01 , alkaline phosphatase 178, WBC 6.8 with left shift no bandemia, H&H: 10.7/32.8, platelet 264, INR 2.42, UA: Positive leukocyte esterase, packed with WBC, nitrate negative. Chest x-ray: Not convincing for pneumonia bibasilar atelectasis. He was admitted to the general medicine floor for management of the following issues. # Hypoxic Respiratory Failure: Pattient was maintained on oxygen. CXR was inconclusive for PNA and the patient had already received Ceftriaxone and Azithromycin in the ED. On Day 2, his oxygen requirement went upto 4.0L. Vancomycin was started and CAT scan of the chest without contrast was done. This did not show the presence of a consolidation, but revealed atelectasis and micronodular opacities in the RUL, possibly infectious bronchiolitis. Cultures remained negative. Patient will be discharged on Levaquin to complete a course of 7 days and follow up with PCP and personal trainer in 1-2 weeks. # Urinary Tract Infection: Considering his history of UTI with psuedomonas in the past, the patient was initially started on Ceftazidime, pending urine cultures. Urine cultures remained negative, Ceftaz was discontinued. Renal US showed no obstruction. #SHEMRAN on CKD stage III: Creatinine 2.1 on admission, significantly increased from baseline of around 1.8. Likely prerenal in the setting of UTI and dehydration. Patient was started on IV fluids, with improvement. Patient will be discharged on Lasix 20 mg daily for possible pulmonary edema, as evidenced by CXR on 09/19. #Hyperkalemia: K 5.7 Likely secondary to renal insufficiency. Patient received Insulin, dextrose and Kayexalate overnight with normalization of his potassium levels. #Non-insulin dependent T2DM: Patient was continued on Novolog sliding scale while inpatient. #Atrial fibrillation: Was continued on home Warfarin per INR. #CAD: Home Imdur and Metoprolol was held secondary to borderline blood pressure in the setting of infection. #Dementia: Home memantine was continued. #BPH: Continue wethl-ml-ryejwenan finasteride 5 mg PO daily. #Gout: Home Allopurinol was continued Diet: NPO pending swallow eval DVT PPx: Warfarin and ALPs CODE: DNR/DNI Allergies: Coded Allergies: sitagliptin (UNKNOWN 08/08/15) Disposition Summary Disposition Principal Diagnosis: UTI Additional Diagnosis: CAD s/p CABG CVA HTN HLD COPD Afib on Coumadin CKD stage 3 DMT2 Alzheimers dementia Discharge Disposition: SNF Discharge Instructions General Discharge Information Code Status: Do Not Resucitate/Intubat Patient's Diet: Chopped with [place] thick Patient's Activity: As tolerated Follow-Up Instructions/Appts: Please make an appointment to follow up with your PCP within one week from discharge. Medications at Discharge Discharge Medications: Continue taking these medications: Furosemide (Lasix) 20 MG TABLET 1 Tablet ORAL DAILY Comments: Last Taken: 09/20/16 Time: 10 AM Isosorbide Mononitrate (Isosorbide Mononitrate ER) 30 MG TAB.ER.24H 1 Tablet ORAL DAILY Comments: Last Taken: 09/20/16 Time: 10 AM Memantine HCl (Namenda XR) 21 MG CAP.SPR.24 1 Capsule ORAL Every night Comments: Last Taken: 09/20/16 Time: 10 AM Warfarin Sodium (Coumadin) 2.5 MG TABLET 1 Tablet ORAL DAILY Comments: Last Taken: 09/19/16 Time: 6 PM Glimepiride (Amaryl) 2 MG TABLET 1 Tablet ORAL TWICE DAILY Comments: NOT GIVEN IN THE HOSPITAL Allopurinol (Allopurinol) 100 MG TABLET 1 Tablet ORAL DAILY Qty = 30 Comments: Last Taken: 09/20/16 Time: 10 AM Atorvastatin Calcium (Atorvastatin Calcium) 20 MG TABLET 1 Tablet ORAL 5 PM Qty = 30 Comments: Last Taken: 09/19/16 Time: 6 PM Finasteride (Finasteride) 5 MG TABLET 1 Tablet ORAL DAILY Qty = 30 Comments: Last Taken: 09/20/16 Time: 10 AM Gabapentin (Gabapentin) 100 MG CAPSULE 1 Capsule ORAL THREE TIMES DAILY Qty = 90 Comments: NOT GIVEN IN HOSPITAL Insulin Lispro (Humalog) 100 UNIT/ML VIAL Units Inject into fatty tissue SEE SLIDING SCALE Qty = 10 Comments: Last Taken: 09/20/16 Time: 12:20 PM Loratadine (Loratadine) 10 MG TABLET 1 Tablet ORAL Every night Comments: NOT GIVEN IN THE HOSPITAL Metoprolol Succinate (Metoprolol Succinate) 50 MG TAB.ER.24H 1.5 Tablet ORAL DAILY Qty = 14 Comments: Last Taken: 09/20/16 Time: 10 AM Ranitidine (Ranitidine HCl) 150 MG TABLET 1 Tablet ORAL TWICE DAILY Comments: NOT GIVEN IN THE HOSPITAL Sodium Chloride (Saline Mist) 0.65 % SPRAY 1 [place] In the nose 4 TIMES A DAY Comments: NOT GIVEN IN THE HOSPITAL Warfarin Sodium (Coumadin) 2 MG TABLET 2 Milligram ORAL MON AND FRI Comments: Last Taken: 09/19/16 Time: 6 PM Start taking the following new medications: Levofloxacin (Levaquin) 500 MG TABLET 500 Milligram ORAL Q24H Days = 5 No Refills Instructions: Continue till 09/26 to complete a 7 day course. Comments: Last Taken: 09/19/16 Time: 6 PM Copies To: LEONIDES CARBALLO MD Attending MD Review Statement Documenting Attending: LEONIDES CARBALLO MD Other Findings: I have not seen this patient and did not participate in her care. I was added as a co-signer by mistake, and my signing of this summary does not reflect my agreement or assent with its contents.
[2016-09-16 15:02] VITALS: BP 110/60
--- NOTE | 2016-09-16 19:46 | Cons- Infect Disease ---
General Information and HPI Consulting Request Date of Consult: 09/16/16 Requested By: LEONIDES CARBALLO MD Reason for Consult: Rule out sepsis Source of Information: patient, family, old records Exam Limitations: dementia History of Present Illness: This is an 86-year-old man, prison resident, with dementia, COPD, maintained on 2 L of oxygen, atrial fibrillation, maintained on Coumadin, coronary artery disease, status post CABG, chronic kidney disease, with a several week history of a cough, occasionally productive of green and bloody sputum, admitted on September 15 after he was sent to the emergency room because of increasing confusion and hypoxia. On admission he was febrile to 101.7. His O2 sat was 89% on room air. Laboratory data revealed a white blood cell count of 7000, BUN/creatinine 36 and 2.1, alkaline phosphatase 178, INR 2.42. Urinalysis 1-3 RBC/packed WBCs. Chest x-ray revealed bibasilar atelectasis. CT of the head revealed no acute intracranial abnormality, but did reveal a fluid level within the left maxillary sinus. He was given Ceftriaxone and Azithromycin in the emergency room, and was then changed to Ceftazidime, with one dose of Vancomycin also given. He was again febrile to 101 this afternoon. At present he notes a chronic cough, with some hemoptysis, occasional shortness of breath and chest discomfort. He denies any dysuria or GI symptoms. Allergies/Medications Allergies: Coded Allergies: sitagliptin (UNKNOWN 08/08/15) Home Med List: Allopurinol 100 MG TABLET 1 TAB PO DAILY UNKNOWN (Reported) Atorvastatin Calcium 20 MG TABLET 1 TAB PO 1700 CHOLESTEROL (Reported) Finasteride 5 MG TABLET 1 TAB PO DAILY PROSTATE (Reported) Furosemide (Lasix) 20 MG TABLET 1 TAB PO DAILY WATER PILL (Reported) Gabapentin 100 MG CAPSULE 1 CAP PO TID UNKNOWN (Reported) Glimepiride (Amaryl) 2 MG TABLET 1 TAB PO BID DM (Reported) Insulin Lispro (Humalog) 100 UNIT/ML VIAL DIABETES (Reported) Isosorbide Mononitrate (Isosorbide Mononitrate ER) 30 MG TAB.ER.24H 1 TAB PO DAILY HEART (Reported) Loratadine 10 MG TABLET 1 TAB PO QPM ALLERGIES (Reported) Memantine HCl (Namenda XR) 21 MG CAP.SPR.24 1 CAP PO QPM DEMENTIA (Reported) Metoprolol Succinate 50 MG TAB.ER.24H 1.5 TAB PO DAILY HEART (Reported) Ranitidine (Ranitidine HCl) 150 MG TABLET 1 TAB PO BID GI (Reported) Sodium Chloride (Saline Mist) 0.65 % SPRAY 1 SPRAY DEMARCO 4 TIMES/DAY ALLERGIES (Reported) Warfarin Sodium (Coumadin) 2.5 MG TABLET 1 TAB PO BLOOD THINNER ( Reported) Warfarin Sodium (Coumadin) 2 MG TABLET 2 MG PO MON AND FRI BLOOD THINNER ( Reported) Past History Travel History Traveled to [place] past 21 day No Medical History Neurological: Alzheimer's disease, CVA, dementia EENT: cataracts Cardiovascular: aortic aneurysm, AFIB, CAD, hypertension, hyperlipidemia, myocardial infarction (3 times), PVD Respiratory: COPD Gastrointestinal: GERD, hiatal hernia Hepatic: NONE Renal: chronic kidney disease Musculoskeletal: gout Psychiatric: NONE Endocrine: diabetes Blood Disorders: NONE Cancer(s): NONE History of MRSA: No History of VRE: No History of CDIFF: No Isolation History: Standard Surgical History Surgical History: CABG, cholecystectomy, cardiac stent placement abdominal aortic aneurysm repair right knee repair TURP Family History Relations & Conditions If Any: SISTER FH: cancer FH: heart disease FATHER FH: heart attack, Onset: 60+. BROTHER FH: heart disease MOTHER FH: diabetes mellitus FH: heart disease Psychosocial History Where Do You Live? [facility] Who Do You Live With? spouse Services at Home: None Primary Language: Georgian Smoking Status: Former Smoker (3 PPD for ~70 Years) ETOH Use: denies use Illicit Drug Use: denies illicit drug use Functional Ability ADLs Needs Assist: dressing, eating, toileting, bathing. Ambulation: wheelchair IADLs Needs Assist: shopping, housework, finances, food prep, telephone, transportation, medication admin. Review of Systems Review of Systems All Other Systems: Reviewed and Negative Exam & Diagnostic Data Last 24 Hrs of Vital Signs/I&O Vital Signs Date Time Temp Pulse Resp B/P B/P Pulse O2 O2 Flow FiO2 Mean Ox Delivery Rate 09/16 1502 101.0 75 24 110/60 93 Nasal 4.0L Cannula 09/16 1355 Nasal 4.0L Cannula 09/16 1046 98.4 101 24 100/58 09/16 1046 98.4 101 24 10058 09/16 1019 98.4 101 24 100/58 93 Nasal 4.0L Cannula 09/16 0911 98.4 88 24 90/60 84 Nasal 2.0L Cannula 09/16 0800 84 Nasal 2.0L Cannula 09/16 0330 93 Nasal 2.0L Cannula 09/16 0300 93 Nasal 2.0L Cannula 09/16 0250 99.1 77 22 94/56 95 Nasal 2.0L Cannula 09/16 0233 99.1 74 20 95 Nasal 2.0L Cannula 09/16 0132 101.7 09/16 0056 101.7 108 24 113/68 93 Nasal 2.0L Cannula 09/15 2258 98.5 100 24 109/67 89 Room Air Intake & Output 09/16 1600 09/16 0800 09/16 0000 Intake Total 725 210 Output Total 400 200 Balance 325 10 Intake, IV 625 210 Intake, Oral 100 0 Number 2 0 Bowel Movements Output, Urine 400 200 Patient 163 lb 165 lb Weight Physical Exam Other Physical Findings: He is awake and alert in no acute distress. MAXIMUM TEMPERATURE 101.7. Skin reveals no rash. HEENT exam is negative. Neck is supple with no adenopathy. Lungs crackles at the left base. Heart irregular rhythm with no murmur. Abdomen is soft, tender over the suprapubic area, with positive bowel sounds. Back no CVA tenderness. Extremities no cyanosis, clubbing or edema. Neuro is without focality. Last 24 Hours of Lab Results: Laboratory Tests 09/16 09/16 0951 0640 Chemistry Sodium (137 - 145 mmol/L) 141 Potassium (3.5 - 5.1 mmol/L) 4.8 Chloride (98 - 107 mmol/L) 109 H Carbon Dioxide (22 - 30 mmol/L) 23 Anion Gap (5 - 16) 9 BUN (9 - 20 mg/dL) 35 H Creatinine (0.7 - 1.2 mg/dL) 2.0 H Estimated GFR (>60 ml/min) 32 L BUN/Creatinine Ratio (7 - 25 %) 17.5 Lactic Acid (0.7 - 2.1 mmol/L) 2.1 Coagulation PT (9.4 - 12.5 SEC) 25.5 H INR (0.90 - 1.17) 2.45 H Hematology CBC w Diff NO MAN DIFF REQ WBC (4.8 - 10.8 /CUMM) 4.8 RBC (4.70 - 6.10 /CUMM) 3.09 L Hgb (14.0 - 18.0 G/DL) 9.5 L Hct (42 - 52 %) 28.9 L MCV (80.0 - 94.0 FL) 93.7 MCH (27.0 - 31.0 PG) 30.7 RDW (11.5 - 14.5 %) 18.7 H Plt Count (130 - 400 /CUMM) 217 MPV (7.4 - 10.4 FL) 6.8 L Gran % (42.2 - 75.2 %) 64.8 Lymphocytes % (20.5 - 51.1 %) 18.7 L Monocytes % (1.7 - 9.3 %) 13.9 H Eosinophils % (0 - 5 %) 2.1 Basophils % (0.0 - 2.0 %) 0.5 Absolute Granulocytes (1.4 - 6.5 /CUMM) 3.1 Absolute Lymphocytes (1.2 - 3.4 /CUMM) 0.9 L Absolute Monocytes (0.10 - 0.60 /CUMM) 0.7 H Absolute Eosinophils (0.0 - 0.7 /CUMM) 0.1 Absolute Basophils (0.0 - 0.2 /CUMM) 0 PUBS MCHC (33.0 - 37.0 G/DL) 32.8 L 09/15 09/15 2340 2315 Chemistry Sodium (137 - 145 mmol/L) 140 Potassium (3.5 - 5.1 mmol/L) 5.7 H Chloride (98 - 107 mmol/L) 107 Carbon Dioxide (22 - 30 mmol/L) 22 Anion Gap (5 - 16) 11 BUN (9 - 20 mg/dL) 36 H Creatinine (0.7 - 1.2 mg/dL) 2.1 H Estimated GFR (>60 ml/min) 30 L BUN/Creatinine Ratio (7 - 25 %) 17.1 Glucose (65 - 99 mg/dL) 150 H Calcium (8.4 - 10.2 mg/dL) 8.7 Total Bilirubin (0.2 - 1.3 mg/dL) 0.7 AST (17 - 59 U/L) 24 ALT (21 - 72 U/L) 39 Alkaline Phosphatase (< 127 U/L) 178 H Troponin I (<0.11 ng/ml) < 0.01 Total Protein (6.3 - 8.2 g/dL) 7.7 Albumin (3.5 - 5.0 g/dL) 3.6 Globulin (1.9 - 4.2 gm/dL) 4.1 Albumin/Globulin Ratio (1.1 - 2.2 %) 0.9 L Coagulation PT (9.4 - 12.5 SEC) 25.2 H INR (0.90 - 1.17) 2.42 H APTT (25 - 37 SEC) 36 Hematology CBC w Diff NO MAN DIFF REQ WBC (4.8 - 10.8 /CUMM) 6.8 RBC (4.70 - 6.10 /CUMM) 3.52 L Hgb (14.0 - 18.0 G/DL) 10.7 L Hct (42 - 52 %) 32.8 L MCV (80.0 - 94.0 FL) 93.2 MCH (27.0 - 31.0 PG) 30.4 RDW (11.5 - 14.5 %) 19.0 H Plt Count (130 - 400 /CUMM) 264 MPV (7.4 - 10.4 FL) 6.4 L Gran % (42.2 - 75.2 %) 76.4 H Lymphocytes % (20.5 - 51.1 %) 11.6 L Monocytes % (1.7 - 9.3 %) 8.4 Eosinophils % (0 - 5 %) 3.3 Basophils % (0.0 - 2.0 %) 0.3 Absolute Granulocytes (1.4 - 6.5 /CUMM) 5.2 Absolute Lymphocytes (1.2 - 3.4 /CUMM) 0.8 L Absolute Monocytes (0.10 - 0.60 /CUMM) 0.6 Absolute Eosinophils (0.0 - 0.7 /CUMM) 0.2 Absolute Basophils (0.0 - 0.2 /CUMM) 0 PUBS MCHC (33.0 - 37.0 G/DL) 32.6 L Urines Urine Color (YEL,AMB,STR) YEL Urine Clarity (CLEAR) CLEAR Urine pH (5.0 - 8.0) 7.0 Ur Specific Catherine (1.001 - 1.035) 1.015 Urine Protein (NEG,<30 MG/DL) 30 H Urine Ketones (NEG) NEG Urine Nitrite (NEG) NEG Urine Bilirubin (NEG) NEG Urine Urobilinogen (0.1 - 1.0 EU/dl) 0.2 Ur Leukocyte Esterase (NEG) LARGE H Ur Microscopic SEDIMENT EXAMINED Urine RBC (0 - 5 /HPF) 1-3 Urine WBC (0 - 2 /HPF) PACKD H Urine Bacteria (NEG/NONE) FEW H Urine Hemoglobin (NEG) SMALL H Urine Glucose (N MG/DL) NEG Last 24 Hours of Nicolas Results: Blood cultures September 15 negative Urine culture September 15 pending Diagnostic Data Recent Imaging Findings: Chest x-ray, personally reviewed, revealed bibasilar atelectasis. CT of the head revealed no acute intracranial abnormality, but did reveal a fluid level within the left maxillary sinus. CT of the chest September 16 reveals mild pulmonary emphysema, micronodular opacities present within the right upper lobe and hazy opacities in both lower lobes and the inferior lingula suggestive of atelectasis Assessment/Plan Assessment/Plan Impression: This is an 86-year-old man, prison resident, with dementia, COPD, maintained on oxygen, and atrial fibrillation, maintained on Coumadin, admitted early this morning because of hypoxia and altered mental status, found to be febrile with a normal white blood cell count and pyuria, and with a CT of the chest revealing atelectasis and findings suggestive of bronchiolitis. His fever is most likely related to a urinary tract infection, with suprapubic tenderness and pyuria. A pulmonary source is also possible, given his complaints of cough, with some hemoptysis and green sputum, and increased oxygen requirements, though his chest x-ray does not reveal pneumonia and his CT scan suggests bronchiolitis , which is unlikely to be bacterial in etiology. His hemoptysis is of some concern, on Coumadin. The CT of the head reveals a fluid level within the left maxillary sinus, which could suggest acute sinusitis. Suggestion: 1. Would obtain a sputum culture 2. Urine for Legionella antigen and strep pneumo antigen 3. Follow-up recent urine and blood cultures 4. Would re-dose with Azithromycin and continue at 500 mg IV every 24 hours 5. Increase Ceftazidime to 1 g IV every 12 hours Consult Acknowledgment - Thank you for your consult request.
--- NOTE | 2016-09-16 20:57 | Admission Certification ---
Admission Certification Certification Statement - As attending physician, I certify that at the time of - admission, based on clinical presentation, severity of - symptoms, need for further diagnostic testing and - therapeutic interventions, and risk of adverse outcomes - without in-hospital treatment, in my clinical assessment, - this patient requires an acute hospital stay for a minimum - of two nights or longer. I have also considered psychsocial - factors such as support system, advanced age, financial - issues, cognitive issues, and failed out-patient treatments, - past re-admission history, safety of patient, and lack of - compliance as applicable. Specific rationale supporting this admission is: Fever, congestion abnormal urine in the emergency room possible pneumonia too low blood pressure the senior living
--- NOTE | 2016-09-16 20:59 | PN- Att Addend ---
Attending Addendum Attending Brief Note 86-year-old white male with history of dementia resident of a [facility] was having some cough some green sputum. Then had low temperature and then a fever. Was sent to the ER where he was found to have a dirty urine some bronchiolitis and chest x-ray his white count is normal. Some suprapubic tenderness. Patient was started on IV antibiotics. Will have an ID consultation and will follow their recommendations Current Medications Sig/Ruthie Start time Last Medication Dose Route Stop Time Status Admin Acetaminophen 0 .STK-MED ONE 09/16 0134 DC IV Acetaminophen 1,000 MG ONCE ONE 09/16 0115 DC 09/16 N/A 1 UNIT IV 09/16 0129 0132 Allopurinol 100 MG DAILY 09/16 1000 AC 09/16 PO 1227 Atorvastatin Calcium 20 MG 1700 09/16 1700 AC 09/16 PO 1702 Azithromycin 500 MG 2100 09/16 2100 AC Sodium Chloride 250 ML IV Azithromycin 500 MG ONCE ONE 09/16 0115 DC 09/16 Sodium Chloride 250 ML IV 09/16 0214 0139 Benzocaine/Menthol 1 BLANCHE Q2P PRN 09/16 0915 AC PO Benzonatate 100 MG TID 09/16 1032 AC 09/16 PO 1701 Bisacodyl 10 MG AT BEDTIME NEED.. 09/16 0400 AC AK Ceftazidime 1,000 MG Q12 09/16 2200 AC IV Ceftazidime 1,000 MG Q24 09/16 1100 DC 09/16 IV 1224 Ceftriaxone Sodium 0 .STK-MED ONE 09/16 0139 DC .ROUTE Ceftriaxone Sodium 1,000 MG ONCE ONE 09/16 0115 DC 09/16 IV 09/16 0116 0139 Cyclobenzaprine HCl 5 MG AT BEDTIME 09/16 2200 CAN PO Dextrose/Sodium 1,000 ML Q10H 09/16 0430 AC 09/16 Chloride IV 1943 Famotidine 20 MG DAILY 09/16 1000 AC 09/16 PO 1227 Finasteride 5 MG DAILY 09/16 1000 AC 09/16 PO 1227 Gabapentin 100 MG TID 09/16 1000 CAN PO Insulin Aspart 0 TIDAC 09/16 1700 AC 09/16 SC 1702 Insulin Human Regular 0 Q6 09/16 0600 DC 09/16 SC 1237 Isosorbide 30 MG DAILY 09/16 1000 AC Mononitrate PO Memantine 10 MG BID 09/16 2200 AC PO Metoprolol Succinate 75 MG DAILY 09/16 1000 AC PO Patient Medication 1 ED .STK-MED ONE 09/16 1250 DC Teaching ED 09/16 1251 Sodium Chloride 1 SPRAY 4 TIMES/DAY 09/16 0343 AC 09/16 DEMARCO 1227 Sodium Chloride 1,000 ML BOLUS ONE 09/16 0300 DC 09/16 IV 09/16 0459 0301 Sodium Polystyrene 60 ML ONCE ONE 09/16 0400 DC 09/16 Sulfonate AK 09/16 0401 0542 Vancomycin HCl 1,000 MG ONCE ONE 09/16 1030 DC 09/16 Sodium Chloride 250 ML IV 09/16 1129 1045 Warfarin Sodium 2 MG COUMADIN 1700 ONE 09/16 1700 DC 09/16 PO 09/16 170 1701 Laboratory Tests 09/16/16 0951: Lactic Acid 2.1 09/16/16 0640: Anion Gap 9, Estimated GFR 32 L, BUN/Creatinine Ratio 17.5, PT 25.5 H, INR 2.45 H, CBC w Diff NO MAN DIFF REQ, RBC 3.09 L, MCV 93.7, MCH 30.7, RDW 18.7 H, MPV 6.8 L, Gran % 64.8, Lymphocytes % 18.7 L, Monocytes % 13.9 H, Eosinophils % 2.1, Basophils % 0.5, Absolute Granulocytes 3.1, Absolute Lymphocytes 0.9 L, Absolute Monocytes 0.7 H, Absolute Eosinophils 0.1, Absolute Basophils 0, PUBS MCHC 32.8 L 09/15/16 2340: Urine Color YEL, Urine Clarity CLEAR, Urine pH 7.0, Ur Specific [place] 1.015, Urine Protein 30 H, Urine Ketones NEG, Urine Nitrite NEG, Urine Bilirubin NEG, Urine Urobilinogen 0.2, Ur Leukocyte Esterase LARGE H, Ur Microscopic SEDIMENT EXAMINED, Urine RBC 1-3, Urine WBC PACKD H, Urine Bacteria FEW H, Urine Hemoglobin SMALL H, Urine Glucose NEG 09/15/16 2315: Anion Gap 11, Estimated GFR 30 L, BUN/Creatinine Ratio 17.1, Glucose 150 H, Calcium 8.7, Total Bilirubin 0.7, AST 24, ALT 39, Alkaline Phosphatase 178 H, Troponin I < 0.01, Total Protein 7.7, Albumin 3.6, Globulin 4.1, Albumin/ Globulin Ratio 0.9 L, PT 25.2 H, INR 2.42 H, APTT 36, CBC w Diff NO MAN DIFF REQ, RBC 3.52 L, MCV 93.2, MCH 30.4, RDW 19.0 H, MPV 6.4 L, Gran % 76.4 H, Lymphocytes % 11.6 L, Monocytes % 8.4, Eosinophils % 3.3, Basophils % 0.3, Absolute Granulocytes 5.2, Absolute Lymphocytes 0.8 L, Absolute Monocytes 0.6, Absolute Eosinophils 0.2, Absolute Basophils 0, PUBS MCHC 32.6 L Microbiology Date/Time Procedure - Status Source Growth 09/16 2018 Respiratory Culture - ORD LOWER RESP 09/16 2018 Gram Stain - ORD LOWER RESP 09/16 332 Urine Culture - CAN URINE ROUT Cancelled: Cancelled via OE: WILL DO ADD ON 09/16 2339 Legionella Antigen - RECD URINE ROUT 09/16 2339 Streptococcus pneumoniae Antigen (M - RECD URINE ROUT 09/16 2339 Urine Culture - RECD URINE ROUT 09/16 2339 Blood Culture - RES BLOOD 09/15 2314 Blood Culture - RES BLOOD 09/15 225 Blood Culture - CAN BLOOD Cancelled: DUP.ORDER Vital Signs Date Time Temp Pulse Resp B/P B/P Pulse O2 O2 Flow FiO2 Mean Ox Delivery Rate 09/16 1946 97.8 09/16 1502 101.0 75 24 110/60 93 Nasal 4.0L Cannula 09/16 1355 Nasal 4.0L Cannula Intake & Output 09/16 1600 Intake Total 725 Output Total 400 Balance 325 Intake, IV 625 Intake, Oral 100 Number 2 Bowel Movements Output, Urine 400 Patient 163 lb Weight
--- NOTE | 2016-09-16 21:41 | Cons- Pulmonary ---
General Information and HPI Consulting Request Date of Consult: 09/16/16 Requested By: med team History of Present Illness: This is an 86-year-old man, [facility] resident, with dementia, COPD, maintained on 2 L of oxygen, atrial fibrillation, maintained on Coumadin, coronary artery disease, status post CABG, chronic kidney disease, with a several week history of a cough, occasionally productive of green and bloody sputum, admitted on September 15 after he was sent to the emergency room because of increasing confusion and hypoxia. On admission he was febrile to 101.7. His O2 sat was 89% on room air. Laboratory data revealed a white blood cell count of 7000, BUN/creatinine 36 and 2.1, alkaline phosphatase 178, INR 2.42. Urinalysis 1-3 RBC/packed WBCs. Chest x-ray revealed bibasilar atelectasis. CT of the head revealed no acute intracranial abnormality, but did reveal a fluid level within the left maxillary sinus. He was given Ceftriaxone and Azithromycin in the emergency room, and was then changed to Ceftazidime, with one dose of Vancomycin also given. He was again febrile to 101 this afternoon. At present he notes a chronic cough , with some hemoptysis, occasional shortness of breath and chest discomfort. He denies any dysuria or GI symptoms. Allergies/Medications Allergies: Coded Allergies: sitagliptin (UNKNOWN 08/08/15) Home Med List: Allopurinol 100 MG TABLET 1 TAB PO DAILY UNKNOWN (Reported) Atorvastatin Calcium 20 MG TABLET 1 TAB PO 1700 CHOLESTEROL (Reported) Finasteride 5 MG TABLET 1 TAB PO DAILY PROSTATE (Reported) Furosemide (Lasix) 20 MG TABLET 1 TAB PO DAILY WATER PILL (Reported) Gabapentin 100 MG CAPSULE 1 CAP PO TID UNKNOWN (Reported) Glimepiride (Amaryl) 2 MG TABLET 1 TAB PO BID DM (Reported) Insulin Lispro (Humalog) 100 UNIT/ML VIAL DIABETES (Reported) Isosorbide Mononitrate (Isosorbide Mononitrate ER) 30 MG TAB.ER.24H 1 TAB PO DAILY HEART (Reported) Loratadine 10 MG TABLET 1 TAB PO QPM ALLERGIES (Reported) Memantine HCl (Namenda XR) 21 MG CAP.SPR.24 1 CAP PO QPM DEMENTIA (Reported) Metoprolol Succinate 50 MG TAB.ER.24H 1.5 TAB PO DAILY HEART (Reported) Ranitidine (Ranitidine HCl) 150 MG TABLET 1 TAB PO BID GI (Reported) Sodium Chloride (Saline Mist) 0.65 % SPRAY 1 SPRAY DEMARCO 4 TIMES/DAY ALLERGIES (Reported) Warfarin Sodium (Coumadin) 2.5 MG TABLET 1 TAB PO BLOOD THINNER ( Reported) Warfarin Sodium (Coumadin) 2 MG TABLET 2 MG PO MON AND FRI BLOOD THINNER ( Reported) Review of Systems Review of Systems Constitutional: Reports: see HPI. Past History Travel History Traveled to [place] past 21 day No Medical History Neurological: Alzheimer's disease, CVA, dementia EENT: cataracts Cardiovascular: aortic aneurysm, AFIB, CAD, hypertension, hyperlipidemia, myocardial infarction (3 times), PVD Respiratory: COPD Gastrointestinal: GERD, hiatal hernia Hepatic: NONE Renal: chronic kidney disease Musculoskeletal: gout Psychiatric: NONE Endocrine: diabetes Blood Disorders: NONE Cancer(s): NONE Surgical History Surgical History: CABG, cholecystectomy, cardiac stent placement abdominal aortic aneurysm repair right knee repair TURP Family History Relations & Conditions If Any: SISTER FH: cancer FH: heart disease FATHER FH: heart attack, Onset: 60+. BROTHER FH: heart disease MOTHER FH: diabetes mellitus FH: heart disease Psychosocial History Where Do You Live? Custodial Facility Primary Language: Mohawk Smoking Status: Former Smoker (3 PPD for ~70 Years) ETOH Use: denies use Illicit Drug Use: denies illicit drug use Functional Ability ADLs Needs Assist: dressing, eating, toileting, bathing. Ambulation: wheelchair IADLs Needs Assist: shopping, housework, finances, food prep, telephone, transportation, medication admin. Exam & Diagnostic Data Last 24 Hrs of Vital Signs/I&O Vital Signs Date Time Temp Pulse Resp B/P B/P Pulse O2 O2 Flow FiO2 Mean Ox Delivery Rate 09/16 1946 97.8 09/16 1502 101.0 75 24 110/60 93 Nasal 4.0L Cannula 09/16 1355 Nasal 4.0L Cannula 09/16 1046 98.4 101 24 100/58 09/16 1046 98.4 101 24 100/58 09/16 1019 98.4 101 24 100/ 93 Nasal 4.0L Cannula 09/16 0911 98.4 88 24 90/60 84 Nasal 2.0L Cannula 09/16 0800 84 Nasal 2.0L Cannula 09/16 0330 93 Nasal 2.0L Cannula 09/16 0300 93 Nasal 2.0L Cannula 09/16 0250 99.1 77 22 94/56 95 Nasal 2.0L Cannula 09/16 0233 99.1 74 20 95 Nasal 2.0L Cannula 09/16 0132 101.7 09/16 0056 101.7 108 24 113/68 93 Nasal 2.0L Cannula 09/15 2258 98.5 100 24 109/67 89 Room Air Intake & Output 09/16 1600 09/16 0800 09/16 0000 Intake Total 725 210 Output Total 400 200 Balance 325 10 Intake, IV 625 210 Intake, Oral 100 0 Number 2 0 Bowel Movements Output, Urine 400 200 Patient 163 lb 165 lb Weight Last 48 Hrs of Labs/Nicolas: Laboratory Tests 09/16/16 0951: Lactic Acid 2.1 09/16/16 0640: Anion Gap 9, Estimated GFR 32 L, BUN/Creatinine Ratio 17.5, PT 25.5 H, INR 2.45 H, CBC w Diff NO MAN DIFF REQ, RBC 3.09 L, MCV 93.7, MCH 30.7, RDW 18.7 H, MPV 6.8 L, Gran % 64.8, Lymphocytes % 18.7 L, Monocytes % 13.9 H, Eosinophils % 2.1, Basophils % 0.5, Absolute Granulocytes 3.1, Absolute Lymphocytes 0.9 L, Absolute Monocytes 0.7 H, Absolute Eosinophils 0.1, Absolute Basophils 0, PUBS MCHC 32.8 L 09/15/16 2340: Urine Color YEL, Urine Clarity CLEAR, Urine pH 7.0, Ur Specific [place] 1.015, Urine Protein 30 H, Urine Ketones NEG, Urine Nitrite NEG, Urine Bilirubin NEG, Urine Urobilinogen 0.2, Ur Leukocyte Esterase LARGE H, Ur Microscopic SEDIMENT EXAMINED, Urine RBC 1-3, Urine WBC PACKD H, Urine Bacteria FEW H, Urine Hemoglobin SMALL H, Urine Glucose NEG 09/15/16 2315: Anion Gap 11, Estimated GFR 30 L, BUN/Creatinine Ratio 17.1, Glucose 150 H, Calcium 8.7, Total Bilirubin 0.7, AST 24, ALT 39, Alkaline Phosphatase 178 H, Troponin I < 0.01, Total Protein 7.7, Albumin 3.6, Globulin 4.1, Albumin/ Globulin Ratio 0.9 L, PT 25.2 H, INR 2.42 H, APTT 36, CBC w Diff NO MAN DIFF REQ, RBC 3.52 L, MCV 93.2, MCH 30.4, RDW 19.0 H, MPV 6.4 L, Gran % 76.4 H, Lymphocytes % 11.6 L, Monocytes % 8.4, Eosinophils % 3.3, Basophils % 0.3, Absolute Granulocytes 5.2, Absolute Lymphocytes 0.8 L, Absolute Monocytes 0.6, Absolute Eosinophils 0.2, Absolute Basophils 0, PUBS MCHC 32.6 L Microbiology 09/16 2339 URINE ROUT: Legionella Antigen - COMP 09/16 2339 URINE ROUT: Streptococcus pneumoniae Antigen (M - COMP Assessment/Plan Impression/Plan: He is awake and alert in no acute distress. MAXIMUM TEMPERATURE 101.7. Skin reveals no rash. HEENT exam is negative. Neck is supple with no adenopathy. Lungs crackles at the left base. Heart irregular rhythm with no murmur. Abdomen is soft, tender over the suprapubic area, with positive bowel sounds. Back no CVA tenderness. Extremities no cyanosis, clubbing or edema. Neuro is without focality. IMPRESSION This is an elderly gentleman who is a [facility] resident with dementia, COPD, now on oxygen, atrial fibrillation on Coumadin, came in with altered mental status with mild hypoxemia with a cough and suprapubic tenderness. A CT scan which had been done did show that he may have mild bronchiolitis but only in 1 lobe the right upper lobe. He has previous history of significantly low ejection fraction, CVA, aortic aneurysm, hypertension, hyperlipidemia, previous [place] with multiple stents and CABG, chronic kidney disease and COPD as well. His issues include * Altered mental status and sepsis which appears to be related to sepsis of urological origin however he does have upper lobe bronchiolitis highly suggestive of aspiration-induced lung injury. He may very well have evolving pneumonitis. [facility] a [facility]. He also does have acute sinusitis as noted in the CT which may be also complicating t the issue * Chronic lung disease with copd with no sig copde * Acute on chronic kidney disease with slight worsening of creatinine * Atrial fibrillation ischemic heart disease which appears to be stable * Dementia now with worsening mental status * GERD hyperlipidemia * Diabetes RECOMMENDATION * Continue antibiotics as noted and by infectious disease * Sputum culture * Check Legionella urinary antigen and strep pneumo urinary antigen * Repeat chest x-ray in 48 hours * Keep oxygen with O2 sat goal of 91-92% * Nebulizer therapy as needed for wheezing * Urine culture * Blood cultures pending * Watch renal function * Hold systemic steroids Consult Acknowledgment - Thank you for your consult request.
[2016-09-16 22:31] VITALS: BP 116/58
[2016-09-17 07:22] VITALS: BP 106/68
--- NOTE | 2016-09-17 07:24 | PN- Housestaff ---
Subjective Follow-up For: Hypoxic Respiratory failure UTI Subjective: Patient is lying down in bed sleeping comfortably. Upon waking, he reports that he cannot breathe and that his cough is worse. Review of Systems Constitutional: Reports: see HPI. Objective Last 24 Hrs of Vital Signs/I&O Vital Signs Date Time Temp Pulse Resp B/P B/P Pulse O2 O2 Flow FiO2 Mean Ox Delivery Rate 09/17 07 98.2 79 20 106/68 90 Room Air 09/17 0000 Nasal 4.0L Cannula 09/16 2231 97.8 71 20 116/58 95 Nasal 4.0L Cannula 09/16 1946 97.8 09/16 1502 101.0 75 24 110/60 93 Nasal 4.0L Cannula 09/16 1355 Nasal 4.0L Cannula 09/16 1046 98.4 101 24 100/58 09/16 1046 98.4 101 24 100/58 09/16 1019 98.4 101 24 100/58 93 Nasal 4.0L Cannula 09/16 0911 98.4 88 24 90/60 84 Nasal 2.0L Cannula Intake & Output 09/17 1600 09/17 0800 09/17 0000 Intake Total 600 Output Total 400 300 Balance -400 300 Intake, IV 600 Output, Urine 400 300 Physical Exam General Appearance: Alert, Oriented X3, Cooperative, No Acute Distress Cardiovascular: Regular Rate, Normal S1, Normal S2 Lungs: Clear to Auscultation, Normal Air Movement Abdomen: Normal Bowel Sounds, Soft, No Tenderness Neurological: Normal Speech, Strength at 5/5 X4 Ext, Normal Tone, Sensation Intact Extremities: No Edema Current Medications: Current Medications Sig/Ruthie Start time Last Medication Dose Route Stop Time Status Admin Allopurinol 100 MG DAILY 09/16 1000 AC 09/16 PO 1227 Atorvastatin Calcium 20 MG 1700 09/16 1700 AC 09/16 PO 1702 Azithromycin 500 MG 2100 09/16 2100 AC 09/16 Sodium Chloride 250 ML IV 2214 Benzocaine/Menthol 1 BLANCHE Q2P PRN 09/16 0915 AC PO Benzonatate 100 MG TID 09/16 1032 AC 09/16 PO 2212 Bisacodyl 10 MG AT BEDTIME NEED.. 09/16 0400 AC MS Ceftazidime 1,000 MG Q12 09/16 2200 AC 09/16 IV 2214 Ceftazidime 1,000 MG Q24 09/16 1100 DC 09/16 IV 1224 Cyclobenzaprine HCl 5 MG AT BEDTIME 09/16 2200 CAN PO Dextrose/Sodium 1,000 ML Q10H 09/16 0430 AC 09/16 Chloride IV 1943 Famotidine 20 MG DAILY 09/16 1000 AC 09/16 PO 1227 Finasteride 5 MG DAILY 09/16 1000 AC 09/16 PO 1227 Insulin Aspart 0 TIDAC 09/16 1700 AC 09/16 SC 1702 Insulin Human Regular 0 Q6 09/16 0600 DC 09/16 SC 1237 Isosorbide 30 MG DAILY 09/16 1000 AC Mononitrate PO Memantine 10 MG BID 09/16 2200 AC 09/16 PO 2212 Metoprolol Succinate 75 MG DAILY 09/16 1000 AC PO Patient Medication 1 ED .STK-MED ONE 09/16 1250 DC Teaching ED 09/16 1251 Sodium Chloride 1 SPRAY 4 TIMES/DAY 09/16 0343 AC 09/16 DEMARCO 2214 Vancomycin HCl 1,000 MG ONCE ONE 09/16 1030 DC 09/16 Sodium Chloride 250 ML IV 09/16 1129 1045 Warfarin Sodium 2 MG COUMADIN 1700 ONE 09/16 1700 DC 09/16 PO 09/16 1701 1701 Last 24 Hrs of Lab/Nicolas Results Last 24 Hrs of Labs/Mics: Laboratory Tests 09/17/16 0747: Sodium Pending, Potassium Pending, Chloride Pending, Carbon Dioxide Pending, Anion Gap Pending, BUN Pending, Creatinine Pending, BUN/Creatinine Ratio Pending , PT Pending, INR Pending, CBC w Diff Pending, WBC Pending, RBC Pending, Hgb Pending, Hct Pending, MCV Pending, MCH Pending, RDW Pending, Plt Count Pending, MPV Pending, PUBS MCHC Pending 09/16/16 0951: Lactic Acid 2.1 Microbiology 09/16 2018 LOWER RESP: Respiratory Culture - COLB 09/16 2018 LOWER RESP: Gram Stain - COLB Lines/Diet/Fluids Lines: peripheral lines Assessment/Plan Assessment: 86 y/o M with PMHx of Alzheimer's dementia, atrial fibrillation on warfarin and CKD stage III who is [facility] with increasing confusion and lethargy. Problem List: Acute hypoxic respiratory failure 2/2 bronchiolitis vs developing pneumonitis Sepsis 2/2 UTI Acute Sinusitis as evidenced from the CT of the head Hyperkalemia, now resolved CAD s/p CABG CVA HTN HLD COPD Afib on Coumadin CKD stage 3 DMT2 Alzheimers dementia Plan: - Continue to monitor on GM for now. - CAT scan of the chest revealed the presence of atelectasis and bronchiolitis. - Continue Azithromycin and Ceftazdime for now pending cultures. - Appreciate Pulm and ID recommendations. - Patient seen by speech and swallow yesterday, recommendations were for a puree consistency and thin liquid diet. - DVT PPx: Coumadin per INR - Code Status: DNR/DNI Problem List: 1. Acute respiratory failure with hypoxia Pain Ratin Pain Location: None Pain Goal: Pain 4 or less Pain Plan: Per EMR Tomorrow's Labs & Rationales: CBC, BEP, INR DVT/Prophylaxis: pharmacological Consulting Request: Consulting Specialty: Infectious Disease Consulting Physician: Dr. Fredis Mills MD
[2016-09-17 08:45] LABS: PT 19.8 SEC (9.4-12.5)
[2016-09-17 09:13] LABS: ABSOLUTE BASOPHIL COUNT 0 /CUMM (0.0-0.2); ABSOLUTE EOSINOPHIL COUNT 0.1 /CUMM (0.0-0.7); ABSOLUTE GRANULOCYTE CT 1.8 /CUMM (1.4-6.5); ABSOLUTE LYMPH COUNT 1.2 /CUMM (1.2-3.4); ABSOLUTE MONOCYTE COUNT 0.7 /CUMM (0.10-0.60); BASOPHIL % 0.3 % (0.0-2.0); EOSINOPHIL % 1.9 % (0-5); GRANULOCYTE % 47.8 % (42.2-75.2); HEMATOCRIT 29.3 % (42-52); MEAN CORPUSCULAR HGB 30.4 PG (27.0-31.0); MEAN CORPUSCULAR HGB CONC 32.6 G/DL (33.0-37.0); MEAN CORPUSCULAR VOLUME 93.1 FL (80.0-94.0); MEAN PLATELET VOLUME 6.8 FL (7.4-10.4); PLATELET COUNT 180 /CUMM (130-400); RED BLOOD CELL CT 3.15 /CUMM (4.70-6.10); WHITE BLOOD CELL COUNT 3.9 /CUMM (4.8-10.8)
--- NOTE | 2016-09-17 10:24 | PN- Att Addend ---
Attending Addendum Attending Brief Note Patient in bed comfortable in no acute distress, temp max 101 last evening as febrile this morning so far. Appreciate infectious diseases input and recommendations. No major changes on physical and continue IV antibiotics check all the cultures 24 TOTALS 09/17 0000 09/16 0000 Intake Total 1535 Output Total 900 Balance 635 Intake, IV 1435 Intake, Oral 100 Number 2 Bowel Movements Output, Urine 900 Patient 163 lb Weight Current Medications Sig/Ruthie Start time Last Medication Dose Route Stop Time Status Admin Allopurinol 100 MG DAILY 09/16 1000 AC 09/17 PO 1015 Atorvastatin Calcium 20 MG 1700 09/16 1700 AC 09/16 PO 1702 Azithromycin 500 MG 2100 09/16 2100 AC 09/16 Sodium Chloride 250 ML IV 2214 Benzocaine/Menthol 1 BLANCHE Q2P PRN 09/16 0915 AC PO Benzonatate 100 MG TID 09/16 1032 AC 09/17 PO 1015 Bisacodyl 10 MG AT BEDTIME NEED.. 09/16 0400 AC [place] Ceftazidime 1,000 MG Q12 09/16 2200 AC 09/17 IV 1011 Ceftazidime 1,000 MG Q24 09/16 1100 DC 09/16 IV 1224 Cyclobenzaprine HCl 5 MG AT BEDTIME 09/16 2200 CAN PO Dextrose/Sodium 1,000 ML Q10H 09/16 0430 AC 09/16 Chloride IV 1943 Famotidine 20 MG DAILY 09/16 1000 AC 09/17 PO 1015 Finasteride 5 MG DAILY 09/16 1000 AC 09/17 PO 1015 Insulin Aspart 0 TIDAC 09/16 1700 09/16 SC 1702 Insulin Human Regular 0 Q6 09/16 0600 DC 09/16 SC 1237 Isosorbide 30 MG DAILY 09/16 1000 AC 09/17 Mononitrate PO 1015 Memantine 10 MG BID 09/16 2200 AC 09/17 PO 1015 Metoprolol Succinate 75 MG DAILY 09/16 1000 AC 09/17 PO 1015 Patient Medication 1 ED .STK-MED ONE 09/16 1250 DC Teaching ED 09/16 1251 Sodium Chloride 1 SPRAY 4 TIMES/DAY 09/16 0343 09/17 DEMARCO 1014 Vancomycin HCl 1,000 MG ONCE ONE 09/16 1030 DC 09/16 Sodium Chloride 250 ML IV 09/16 1129 1045 Warfarin Sodium 2 MG COUMADIN 1700 ONE 09/16 1700 DC 09/16 PO 09/16 1701 1701 Laboratory Tests 09/17/16 0747: Anion Gap 9, Estimated GFR 44 L, BUN/Creatinine Ratio 19.3, PT 19.8 H, INR 1.90 H, CBC w Diff NO MAN DIFF REQ, RBC 3.15 L, MCV 93.1, MCH 30.4, RDW 19.0 H, MPV 6.8 L, Gran % 47.8, Lymphocytes % 31.0, Monocytes % 19.0 H, Eosinophils % 1.9, Basophils % 0.3, Absolute Granulocytes 1.8, Absolute Lymphocytes 1.2, Absolute Monocytes 0.7 H, Absolute Eosinophils 0.1, Absolute Basophils 0, PUBS MCHC 32.6 L Microbiology Date/Time Procedure - Status Source Growth 09/16 2018 Respiratory Culture - COLB LOWER RESP 09/16 2018 Gram Stain - COLB LOWER RESP
--- NOTE | 2016-09-17 14:07 | PN- Infect Dx ---
Subjective Subjective: MAXIMUM TEMPERATURE 101. He complains of chest discomfort, increased shortness of breath and cough, not productive recently. Objective Last 24 Hrs of Vital Signs/I&O Vital Signs Date Time Temp Pulse Resp B/P B/P Pulse O2 O2 Flow FiO2 Mean Ox Delivery Rate 09/17 1015 80 106/68 09/17 1015 80 106/68 09/17 0800 90 Nasal 4.0L Cannula 09/17 0722 98.2 79 20 106/68 90 Room Air 09/17 0000 Nasal 4.0L Cannula 09/16 2231 97.8 71 20 116/58 95 Nasal 4.0L Cannula 09/16 1946 97.8 09/16 1502 101.0 75 24 110/60 93 Nasal 4.0L Cannula Intake & Output 09/17 1600 09/17 0800 09/17 0000 Intake Total 600 600 Output Total 400 300 Balance 200 300 Intake, IV 600 600 Output, Urine 400 300 Physical Exam Other Physical Findings: He appears anxious but in no acute distress Lungs crackles at the left base Heart regular rhythm with no murmur Abdomen is soft, nontender with positive bowel sounds Back left CVA tenderness Extremities no cyanosis, clubbing or edema Results Last 24 Hours of Lab Results: Laboratory Tests 09/17 0747 Chemistry Sodium (137 - 145 mmol/L) 141 Potassium (3.5 - 5.1 mmol/L) 4.3 Chloride (98 - 107 mmol/L) 111 H Carbon Dioxide (22 - 30 mmol/L) 22 Anion Gap (5 - 16) 9 BUN (9 - 20 mg/dL) 29 H Creatinine (0.7 - 1.2 mg/dL) 1.5 H Estimated GFR (>60 ml/min) 44 L BUN/Creatinine Ratio (7 - 25 %) 19.3 Coagulation PT (9.4 - 12.5 SEC) 19.8 H INR (0.90 - 1.17) 1.90 H Hematology CBC w Diff NO MAN DIFF REQ WBC (4.8 - 10.8 /CUMM) 3.9 L RBC (4.70 - 6.10 /CUMM) 3.15 L Hgb (14.0 - 18.0 G/DL) 9.6 L Hct (42 - 52 %) 29.3 L MCV (80.0 - 94.0 FL) 93.1 MCH (27.0 - 31.0 PG) 30.4 RDW (11.5 - 14.5 %) 19.0 H Plt Count (130 - 400 /CUMM) 180 MPV (7.4 - 10.4 FL) 6.8 L Gran % (42.2 - 75.2 %) 47.8 Lymphocytes % (20.5 - 51.1 %) 31.0 Monocytes % (1.7 - 9.3 %) 19.0 H Eosinophils % (0 - 5 %) 1.9 Basophils % (0.0 - 2.0 %) 0.3 Absolute Granulocytes (1.4 - 6.5 /CUMM) 1.8 Absolute Lymphocytes (1.2 - 3.4 /CUMM) 1.2 Absolute Monocytes (0.10 - 0.60 /CUMM) 0.7 H Absolute Eosinophils (0.0 - 0.7 /CUMM) 0.1 Absolute Basophils (0.0 - 0.2 /CUMM) 0 PUBS MCHC (33.0 - 37.0 G/DL) 32.6 L Last 24 Hours of Nicolas Results: Blood cultures September 15 negative Urine culture September 15 negative Urine strep pneumo antigen and Legionella antigen September 15 negative Assessment/Plan Impression: Stable with no further fevers and with white blood cell count remaining normal on Azithromycin and Ceftazidime Day 2 of treatment for possible urinary tract infection, with pyuria, though with the urine culture negative so far, versus pneumonia, with increased oxygen requirement, though his CT scan is suggestive of bronchiolitis, with no focal consolidation, versus maxillary sinusitis, with the CT of the head revealing a fluid level in the left maxillary sinus. Suggestion: 1. Follow-up recent urine and blood cultures 2. Renal ultrasound 3. Continue Azithromycin and Ceftazidime pending above
[2016-09-17 14:25] VITALS: BP 109/72
--- NOTE | 2016-09-17 17:08 | PN- Pulmonary ---
Subjective HPI/Critical Care Issues: MAXIMUM TEMPERATURE 101. He complains of chest discomfort, increased shortness of breath and cough, not productive recently. Objective Current Medications: Current Medications Sig/Ruthie Start time Last Medication Dose Route Stop Time Status Admin Allopurinol 100 MG DAILY 09/16 1000 AC 09/17 PO 1015 Atorvastatin Calcium 20 MG 1700 09/16 1700 AC 09/16 PO 1702 Azithromycin 500 MG 2100 09/16 2100 AC 09/16 Sodium Chloride 250 ML IV 2214 Benzocaine/Menthol 1 BLANCHE Q2P PRN 09/16 0915 AC PO Benzonatate 100 MG TID 09/16 1032 AC 09/17 PO 1015 Bisacodyl 10 MG AT BEDTIME NEED.. 09/16 0400 AC NH Ceftazidime 1,000 MG Q12 09/16 2200 AC 09/17 IV 1011 Ceftazidime 1,000 MG Q24 09/16 1100 DC 09/16 IV 1224 Dextrose/Sodium 1,000 ML Q10H 09/16 0430 AC 09/17 Chloride IV 1048 Famotidine 20 MG DAILY 09/16 1000 AC 09/17 PO 1015 Finasteride 5 MG DAILY 09/16 1000 AC 09/17 PO 1015 Insulin Aspart 0 TIDAC 09/16 1700 AC 09/17 SC 1235 Isosorbide 30 MG DAILY 09/16 1000 AC 09/17 Mononitrate PO 1015 Memantine 10 MG BID 09/16 2200 AC 09/17 PO 1015 Metoprolol Succinate 75 MG DAILY 09/16 1000 AC 09/17 PO 1015 Sodium Chloride 1 SPRAY 4 TIMES/DAY 09/16 0343 AC 09/17 DEMARCO 1350 Warfarin Sodium 3 MG COUMADIN 1700 ONE 09/17 1700 DC PO 09/17 1701 Vital Signs & I&O Last 24 Hrs of Vitals and I&O: Vital Signs Date Time Temp Pulse Resp B/P B/P Pulse O2 O2 Flow FiO2 Mean Ox Delivery Rate 09/17 1425 97.6 88 20 109/72 93 Nasal 3.5L Cannula 09/17 1015 80 106/68 09/17 1015 80 106/09/17 0800 90 Nasal 4.0L Cannula 09/17 0722 98.2 79 20 106/68 90 Room Air 09/17 0000 Nasal 4.0L Cannula 09/16 2230 97.8 71 20 116/58 95 Nasal 4.0L Cannula 09/16 1946 97.8 Intake & Output 09/17 1600 09/17 0800 09/17 0000 Intake Total 600 600 Output Total 300 400 300 Balance -300 200 300 Intake, IV 600 600 Output, Urine 300 400 300 Laboratory Tests 09/17 09/16 0747 0951 Chemistry Sodium (137 - 145 mmol/L) 141 Potassium (3.5 - 5.1 mmol/L) 4.3 Chloride (98 - 107 mmol/L) 111 H Carbon Dioxide (22 - 30 mmol/L) 22 Anion Gap (5 - 16) 9 BUN (9 - 20 mg/dL) 29 H Creatinine (0.7 - 1.2 mg/dL) 1.5 H Estimated GFR (>60 ml/min) 44 L BUN/Creatinine Ratio (7 - 25 %) 19.3 Lactic Acid (0.7 - 2.1 mmol/L) 2.1 Coagulation PT (9.4 - 12.5 SEC) 19.8 H INR (0.90 - 1.17) 1.90 H Hematology CBC w Diff NO MAN DIFF REQ WBC (4.8 - 10.8 /CUMM) 3.9 L RBC (4.70 - 6.10 /CUMM) 3.15 L Hgb (14.0 - 18.0 G/DL) 9.6 L Hct (42 - 52 %) 29.3 L MCV (80.0 - 94.0 FL) 93.1 MCH (27.0 - 31.0 PG) 30.4 RDW (11.5 - 14.5 %) 19.0 H Plt Count (130 - 400 /CUMM) 180 MPV (7.4 - 10.4 FL) 6.8 L Gran % (42.2 - 75.2 %) 47.8 Lymphocytes % (20.5 - 51.1 %) 31.0 Monocytes % (1.7 - 9.3 %) 19.0 H Eosinophils % (0 - 5 %) 1.9 Basophils % (0.0 - 2.0 %) 0.3 Absolute Granulocytes (1.4 - 6.5 /CUMM) 1.8 Absolute Lymphocytes (1.2 - 3.4 /CUMM) 1.2 Absolute Monocytes (0.10 - 0.60 /CUMM) 0.7 H Absolute Eosinophils (0.0 - 0.7 /CUMM) 0.1 Absolute Basophils (0.0 - 0.2 /CUMM) 0 PUBS MCHC (33.0 - 37.0 G/DL) 32.6 L 09/16 05 0640 2340 Chemistry Sodium (137 - 145 mmol/L) 141 Potassium (3.5 - 5.1 mmol/L) 4.8 Chloride (98 - 107 mmol/L) 109 H Carbon Dioxide (22 - 30 mmol/L) 23 Anion Gap (5 - 16) 9 BUN (9 - 20 mg/dL) 35 H Creatinine (0.7 - 1.2 mg/dL) 2.0 H Estimated GFR (>60 ml/min) 32 L BUN/Creatinine Ratio (7 - 25 %) 17.5 Coagulation PT (9.4 - 12.5 SEC) 25.5 H INR (0.90 - 1.17) 2.45 H Hematology CBC w Diff NO MAN DIFF REQ WBC (4.8 - 10.8 /CUMM) 4.8 RBC (4.70 - 6.10 /CUMM) 3.09 L Hgb (14.0 - 18.0 G/DL) 9.5 L Hct (42 - 52 %) 28.9 L MCV (80.0 - 94.0 FL) 93.7 MCH (27.0 - 31.0 PG) 30.7 RDW (11.5 - 14.5 %) 18.7 H Plt Count (130 - 400 /CUMM) 217 MPV (7.4 - 10.4 FL) 6.8 L Gran % (42.2 - 75.2 %) 64.8 Lymphocytes % (20.5 - 51.1 %) 18.7 L Monocytes % (1.7 - 9.3 %) 13.9 H Eosinophils % (0 - 5 %) 2.1 Basophils % (0.0 - 2.0 %) 0.5 Absolute Granulocytes (1.4 - 6.5 /CUMM) 3.1 Absolute Lymphocytes (1.2 - 3.4 /CUMM) 0.9 L Absolute Monocytes (0.10 - 0.60 /CUMM) 0.7 H Absolute Eosinophils (0.0 - 0.7 /CUMM) 0.1 Absolute Basophils (0.0 - 0.2 /CUMM) 0 PUBS MCHC (33.0 - 37.0 G/DL) 32.8 L Urines Urine Color (YEL,AMB,STR) YEL Urine Clarity (CLEAR) CLEAR Urine pH (5.0 - 8.0) 7.0 Ur Specific [place] (1.001 - 1.035) 1.015 Urine Protein (NEG,<30 MG/DL) 30 H Urine Ketones (NEG) NEG Urine Nitrite (NEG) NEG Urine Bilirubin (NEG) NEG Urine Urobilinogen (0.1 - 1.0 EU/dl) 0.2 Ur Leukocyte Esterase (NEG) LARGE H Ur Microscopic SEDIMENT EXAMINED Urine RBC (0 - 5 /HPF) 1-3 Urine WBC (0 - 2 /HPF) PACKD H Urine Bacteria (NEG/NONE) FEW H Urine Hemoglobin (NEG) SMALL H Urine Glucose (N MG/DL) NEG 09/15 2315 Chemistry Sodium (137 - 145 mmol/L) 140 Potassium (3.5 - 5.1 mmol/L) 5.7 H Chloride (98 - 107 mmol/L) 107 Carbon Dioxide (22 - 30 mmol/L) 22 Anion Gap (5 - 16) 11 BUN (9 - 20 mg/dL) 36 H Creatinine (0.7 - 1.2 mg/dL) 2.1 H Estimated GFR (>60 ml/min) 30 L BUN/Creatinine Ratio (7 - 25 %) 17.1 Glucose (65 - 99 mg/dL) 150 H Calcium (8.4 - 10.2 mg/dL) 8.7 Total Bilirubin (0.2 - 1.3 mg/dL) 0.7 AST (17 - 59 U/L) 24 ALT (21 - 72 U/L) 39 Alkaline Phosphatase (< 127 U/L) 178 H Troponin I (<0.11 ng/ml) < 0.01 Total Protein (6.3 - 8.2 g/dL) 7.7 Albumin (3.5 - 5.0 g/dL) 3.6 Globulin (1.9 - 4.2 gm/dL) 4.1 Albumin/Globulin Ratio (1.1 - 2.2 %) 0.9 L Coagulation PT (9.4 - 12.5 SEC) 25.2 H INR (0.90 - 1.17) 2.42 H APTT (25 - 37 SEC) 36 Hematology CBC w Diff NO MAN DIFF REQ WBC (4.8 - 10.8 /CUMM) 6.8 RBC (4.70 - 6.10 /CUMM) 3.52 L Hgb (14.0 - 18.0 G/DL) 10.7 L Hct (42 - 52 %) 32.8 L MCV (80.0 - 94.0 FL) 93.2 MCH (27.0 - 31.0 PG) 30.4 RDW (11.5 - 14.5 %) 19.0 H Plt Count (130 - 400 /CUMM) 264 MPV (7.4 - 10.4 FL) 6.4 L Gran % (42.2 - 75.2 %) 76.4 H Lymphocytes % (20.5 - 51.1 %) 11.6 L Monocytes % (1.7 - 9.3 %) 8.4 Eosinophils % (0 - 5 %) 3.3 Basophils % (0.0 - 2.0 %) 0.3 Absolute Granulocytes (1.4 - 6.5 /CUMM) 5.2 Absolute Lymphocytes (1.2 - 3.4 /CUMM) 0.8 L Absolute Monocytes (0.10 - 0.60 /CUMM) 0.6 Absolute Eosinophils (0.0 - 0.7 /CUMM) 0.2 Absolute Basophils (0.0 - 0.2 /CUMM) 0 PUBS MCHC (33.0 - 37.0 G/DL) 32.6 L Microbiology Date/Time Procedure - Status Source Growth 09/17 1454 Respiratory Culture - COLB LOWER RESP 09/17 1454 Gram Stain - COLB LOWER RESP 09/16 2018 Respiratory Culture - CAN LOWER RESP Cancelled: SPECIMEN NOT RECEIVED IN LABORATORY 09/16 2018 Gram Stain - CAN LOWER RESP Cancelled: SPECIMEN NOT RECEIVED IN LABORATORY 09/16 332 Urine Culture - CAN URINE ROUT Cancelled: Cancelled via OE: WILL DO ADD ON 09/16 2339 Legionella Antigen - COMP URINE ROUT 09/16 2339 Streptococcus pneumoniae Antigen (M - COMP URINE ROUT 09/16 2339 Urine Culture - RES URINE ROUT 09/16 2339 Blood Culture - RES BLOOD 09/15 2314 Blood Culture - RES BLOOD 09/16 2251 Blood Culture - CAN BLOOD Cancelled: DUP.ORDER Impression/Plan Impression/Plan Impression/Plan: He is awake and alert in no acute distress. MAXIMUM TEMPERATURE 101.7. Skin reveals no rash. HEENT exam is negative. Neck is supple with no adenopathy. Lungs crackles at the left base. Heart irregular rhythm with no murmur. Abdomen is soft, tender over the suprapubic area, with positive bowel sounds. Back no CVA tenderness. Extremities no cyanosis, clubbing or edema. Neuro is without focality. IMPRESSION This is an elderly gentleman who is a detention resident with dementia, COPD, now on oxygen, atrial fibrillation on Coumadin, came in with altered mental status with mild hypoxemia with a cough and suprapubic tenderness. A CT scan which had been done did show that he may have mild bronchiolitis but only in 1 lobe the right upper lobe. He has previous history of significantly low ejection fraction, CVA, aortic aneurysm, hypertension, hyperlipidemia, previous [place] with multiple stents and CABG, chronic kidney disease and COPD as well. His issues include * Improving Altered mental status and sepsis which appears to be related to sepsis of urological origin however he does have upper lobe bronchiolitis highly suggestive of aspiration-induced lung injury. He may very well have evolving pneumonitis. Patient has been in a detention. He also does have acute sinusitis as noted in the CT which may be also complicating t the issue * Chronic lung disease with copd with no sig copde * Acute on chronic kidney disease with slight worsening of creatinine * Atrial fibrillation ischemic heart disease which appears to be stable * Dementia now with worsening mental status * GERD hyperlipidemia * Diabetes RECOMMENDATION * Continue antibiotics as noted and by infectious disease * Repeat chest x-ray in 48 hours * Keep oxygen with O2 sat goal of 91-92% * Nebulizer therapy as needed for wheezing * Urine culture * Blood cultures pending * Watch renal function * Hold systemic steroids
--- NOTE | 2016-09-17 19:04 | Event Note ---
Event Note Event Note: I was paged by the nurse at around 6.30 PM, as patient heart rate is running high. * Patient is in tachycardia, heart rate varying between 120 and 130 * Patient does report pain in the chest on coughing, denies any pain radiating to arm and shoulders * Also reported pain abdomen and pain in right foot * Vitals-afebrile, heart rate 120, blood pressure 110/70, saturating at 96% on 4 L nasal cannula. * Ordered stat troponin and EKG * EKG showed atrial fibrillation, rate [address] depressions in V2 and V3. Patient has history of atrial fibrillation. Admission EKG showed atrial fibrillation with rate 82 * Troponin 0.01 * Percocet was given for pain abdomen. * Patient was transferred to to telemetry floor for continuous cardiac monitoring * His heart rate came down to 98 and blood pressure 122/76 in the telemetry floor at the time of transfer. * Family at bedside, discussed the plan * Cardiology consult.
--- NOTE | 2016-09-17 19:22 | NUR ---
AT APPROX 1730, PT STATED HE WAS HAVING PROBLEMS BREATHING. CHECKED O2 SATS-WAS BETWEEN 93-96% ON 4L, BUT HEART RATE WAS BETWEEN 115-132. WE MOVED PT TO SIDE OF BED TO USE URINAL, CHECKED AGAIN, AND HR WAS IN THE 120s. WE GOT HIM BACK IN BED AND COMFORTABLE, AND I WAITED A FEW MINUTES, CHECKED AGAIN, O2 WAS 93-94% AND HR IN THE 120s AGAIN. NOTIFIED MOTEL MANAGER JEFFERY, SHE ORDERED AN EKG. SHOWED AFIB (PT HAS HX) THEN TROPONIN WAS ORDRED AND TRANSFER TO TELE ORDERED. PT C/O PAIN TO CHEST FROM COUGHING, PERCOCET GIVEN AT 1900. WAITING ON LAB RESULTS, REPORT GIVEN TO NEDRA CESAR ON TELE.
[2016-09-17 19:51] VITALS: BP 122/76
[2016-09-18 00:09] VITALS: BP 120/64
[2016-09-18 08:00] VITALS: BP 110/74
[2016-09-18 08:20] LABS: PT 23.8 SEC (9.4-12.5)
--- NOTE | 2016-09-18 08:46 | PN- Housestaff ---
Subjective Follow-up For: Hypoxic Respiratory failure UTI Atrial fibrillation; Chest pain Tele-Events Since Last Visit: A. fib, PVCs, rate 82-95 Subjective: Patient sleeping comfortably in bed, easily arousable. Very pleasant, oriented to place, not to time and person. Reports no fevers or chills overnight. Reports no further episodes of chest pain. Admits to palpiatations. No lightheadeness or dizziness. Complains of constipation. Review of Systems Constitutional: Reports: see HPI. Objective Last 24 Hrs of Vital Signs/I&O Vital Signs Date Time Temp Pulse Resp B/P B/P Pulse O2 O2 Flow FiO2 Mean Ox Delivery Rate 09/18 08 97.8 84 20 110/74 96 Nasal 4.0L Cannula 09/18 0009 98.1 98 18 120/64 96 Nasal 3.0L Cannula 09/18 0000 94 Nasal 4.0L Cannula 09/17 1951 98.7 101 18 122/76 95 Nasal 4.0L Cannula 09/17 1730 98.5 120 96 Nasal 4.0L Cannula 09/17 1600 93 Nasal 4.0L Cannula 09/17 1425 97.6 88 20 109/72 93 Nasal 3.5L Cannula 09/17 1015 80 106/68 09/17 1015 80 106/68 Intake & Output 09/18 1600 09/18 0800 09/18 0000 Intake Total 600 1750 Output Total 300 100 Balance 300 1650 Intake, IV 600 1150 Intake, Oral 600 Output, Urine 300 100 Physical Exam General Appearance: Alert, Cooperative, No Acute Distress Cardiovascular: Normal S1, Normal S2, Irregular rate Lungs: Clear to Auscultation, Normal Air Movement Abdomen: Normal Bowel Sounds, Soft, No Tenderness Neurological: Normal Speech, Strength at 5/5 X4 Ext Extremities: No Clubbing, No Cyanosis, No Edema Current Medications: Current Medications Sig/Ruthie Start time Last Medication Dose Route Stop Time Status Admin Allopurinol 100 MG DAILY 09/16 1000 AC 09/17 PO 1015 Atorvastatin Calcium 20 MG 1700 09/16 1700 AC 09/17 PO 171 Azithromycin 500 MG 09/16 Sodium Chloride 250 ML IV 2126 Benzocaine/Menthol 1 BLANCHE Q2P PRN 09/16 0915 AC PO Benzonatate 100 MG TID 09/16 1032 AC 09/17 PO 2128 Bisacodyl 10 MG AT BEDTIME NEED.. 09/16 0400 AC NV Ceftazidime 1,000 MG Q12 09/16 2200 AC 09/17 IV 2127 Dextrose/Sodium 1,000 ML Q10H 09/16 0430 AC 09/18 Chloride IV 0544 Famotidine 20 MG DAILY 09/16 1000 AC 09/17 PO 1015 Finasteride 5 MG DAILY 09/16 1000 AC 09/17 PO 1015 Insulin Aspart 0 TIDAC 09/16 1700 AC 09/17 SC 1735 Isosorbide 30 MG DAILY 09/16 1000 AC 09/17 Mononitrate PO 1015 Memantine 10 MG BID 09/16 2200 AC 09/17 PO 2128 Metoprolol Succinate 75 MG DAILY 09/16 1000 AC 09/17 PO 1015 Oxycodone/ 1 TAB ONCE ONE 09/17 190 DC 09/17 Acetaminophen PO 09/17 190 1859 Sodium Chloride 1 SPRAY 4 TIMES/DAY 09/16 0343 AC 09/17 DEMARCO 2127 Warfarin Sodium 3 MG COUMADIN 1700 ONE 09/18 1700 AC PO 09/18 170 Warfarin Sodium 3 MG COUMADIN 1700 ONE 09/17 1700 DC 09/17 PO 09/17 1701 1718 Last 24 Hrs of Lab/Nicolas Results Last 24 Hrs of Labs/Mics: Laboratory Tests 09/18/16 06: Anion Gap 9, Estimated GFR 52 L, BUN/Creatinine Ratio 19.2, Magnesium 1.9, Troponin I < 0.01, PT 23.8 H, INR 2.29 H 09/17/161904: Troponin I 0.01 Microbiology 09/17 145 LOWER RESP: Respiratory Culture - COLB 09/17 1454 LOWER RESP: Gram Stain - COLB Lines/Diet/Fluids Fluids/Infusions: D5-NS Assessment/Plan Assessment: 86 y/o M with PMHx of Alzheimer's dementia, atrial fibrillation on warfarin and CKD stage III who is BIBA from halfway with increasing confusion and lethargy. Problem List: Episode of chest pain, EKG changes and rapid atrial fibrillation Acute hypoxic respiratory failure 2/2 bronchiolitis vs developing pneumonitis Sepsis 2/2 UTI Acute Sinusitis as evidenced from the CT of the head Hyperkalemia, resolved CAD s/p CABG CVA HTN HLD COPD Afib on Coumadin CKD stage 3 DMT2 Alzheimers dementia Plan: - On tele for episode of chest pain. Troponin last night 0.01, recheck this morning to rule out ACS as etiology. EKG A.fib, baseline. No further episodes of chest pain. Hemodynamically stable. K and Mg normal. May check TSH reflex. Last echo showed low EF 40-45% in 2014; hypokinetic apex, repeat Echocardiogram to rule out worsening structural heart disease as cause of rapid rate. Cardiology consult placed by team last night. - CAT scan of the chest revealed the presence of atelectasis and bronchiolitis. Chest X-ray today revealed Mild diffuse prominent interstitial lung markings bilaterally, may represent interstitial infiltrate/pneumonia, edema, developing fibrosis and less likely to be neoplasm, appears minimally progressed since prior study dated 09/15/2016. ? Discontinue fluids. May benefit from a trial of Lasix, Creatinine currently better than baseline. - Continue Azithromycin and Ceftazdime for now, pending cultures. - Patient seen by speech and swallow yesterday, recommendations were for a puree consistency and thin liquid diet. - Monitor urinary output, strict Is and Os. Renal US to rule out obstruction. - Constipation: Senna S and Miralax. -OOB to chair, physical therapy. - DVT PPx: Coumadin per INR - Code Status: DNR/DNI Problem List: 1. Chest pain Pain Ratin Pain Location: Chest Pain Goal: Remain pain free Pain Plan: PRN Tomorrow's Labs & Rationales: CBC for Hgb monitoring BEP for SHERMAN. Consulting Request: Consulting Specialty: Infectious Disease Consulting Physician: Dr. Fredis Mills MD
--- NOTE | 2016-09-18 10:15 | NUR ---
PT HAD 11 BEAT RUN OF VTACH; PT ASYMPTOMATIC AT THIS TIME; MD HERNAN VASQUEZ MADE AWARE; WILL CONTINUE TO MONITOR.
--- NOTE | 2016-09-18 10:38 | RADIOLOGY REPORT ---
EXAMINATION: XR PORTABLE CHEST CLINICAL INFORMATION: Aspiration induced lung injury. COMPARISON: Chest done on 09/15/2016. TECHNIQUE: Portable frontal view of the chest was obtained. FINDINGS: Mild diffuse prominent interstitial lung markings are noted bilaterally, may represent interstitial infiltrate/pneumonia, edema, developing fibrosis and less likely to be neoplasm, appears minimally progressed since prior study dated 09/15/2016. Persistent stable moderate enlargement of the cardiomediastinal silhouette is noted with postop changes of sternotomy and likely CABG. Possible small left-sided pleural effusion, unchanged. Note is made of asymmetric apparent elevated left hemidiaphragm, appear slightly more pronounced since prior study. IMPRESSION: 1. Evidence of bilateral mild diffuse prominent linear interstitial lung markings are noted bilaterally, nonspecific in appearance; however, possible differential diagnostic consideration is given as above, shows interval progression since 09/15/2016. 2. Persistent stable moderate enlargement of the cardiomediastinal silhouette and possible small left-sided pleural effusion. 3. Persistent apparent asymmetric elevated left hemidiaphragm, appears slightly more pronounced since prior study, of uncertain etiology.
--- NOTE | 2016-09-18 13:49 | PN- Pulmonary ---
Subjective HPI/Critical Care Issues: Patient sleeping comfortably in bed, easily arousable. Very pleasant, oriented to place, not to time and person. Reports no fevers or chills overnight. Reports no further episodes of chest pain. Admits to palpiatations. No lightheadeness or dizziness. Complains of constipation. Review of Systems Constitutional: Reports: see HPI. Objective Current Medications: Current Medications Sig/Ruthie Start time Last Medication Dose Route Stop Time Status Admin Allopurinol 100 MG DAILY 09/16 1000 AC 09/18 PO 0848 Atorvastatin Calcium 20 MG 1700 09/16 1700 AC 09/17 PO 1717 Azithromycin 500 MG 2100 09/16 2100 AC 09/17 Sodium Chloride 250 ML IV 2127 Benzocaine/Menthol 1 BLANCHE Q2P PRN 09/16 0915 AC PO Benzonatate 100 MG TID 09/16 1032 AC 09/18 PO 0847 Bisacodyl 10 MG AT BEDTIME NEED.. 09/16 0400 AC AL Ceftazidime 1,000 MG Q12 09/16 2200 AC 09/18 IV 0847 Dextrose/Sodium 1,000 ML Q10H 09/16 0430 DC 09/18 Chloride IV 0544 Famotidine 20 MG DAILY 09/16 1000 AC 09/18 PO 0847 Finasteride 5 MG DAILY 09/16 1000 AC 09/18 PO 0847 Insulin Aspart 0 TIDAC 09/16 1700 AC 09/18 SC 1321 Isosorbide 30 MG DAILY 09/16 1000 AC 09/18 Mononitrate PO 0847 Memantine 10 MG BID 09/16 2200 AC 09/18 PO 0847 Metoprolol Succinate 75 MG DAILY 09/16 1000 AC 09/18 PO 0847 Oxycodone/ 1 TAB ONCE ONE 09/17 1900 DC 09/17 Acetaminophen PO 09/17 190 1859 Polyethylene Glycol 17 GM ONCE ONE 09/18 0845 DC PO 09/18 0846 Senna/Docusate Sodium 2 TAB ONCE ONE 09/18 0845 DC PO 09/18 0846 Sodium Chloride 1 SPRAY 4 TIMES/DAY 09/16 0343 AC 09/18 DEMARCO 0847 Warfarin Sodium 3 MG COUMADIN 1700 ONE 09/18 1700 AC PO 09/18 1701 Warfarin Sodium 3 MG COUMADIN 1700 ONE 09/17 1700 DC 09/17 PO 09/17 1701 1718 Vital Signs & I&O Last 24 Hrs of Vitals and I&O: Vital Signs Date Time Temp Pulse Resp B/P B/P Pulse O2 O2 Flow FiO2 Mean Ox Delivery Rate 09/18 0847 84 110/74 09/18 0847 84 110/74 09/18 0800 Nasal 4.0L Cannula 09/18 0800 97.8 84 20 110/74 96 Nasal 4.0L Cannula 09/18 0009 98.1 98 18 120/64 96 Nasal 3.0L Cannula 09/18 0000 94 Nasal 4.0L Cannula 09/17 1951 98.7 101 18 122/76 95 Nasal 4.0L Cannula 09/17 1730 98.5 120 96 Nasal 4.0L Cannula 09/17 1600 93 Nasal 4.0L Cannula 09/17 1425 97.6 88 20 109/72 93 Nasal 3.5L Cannula Intake & Output 09/18 1600 09/18 0800 09/18 0000 Intake Total 600 1750 Output Total 300 100 Balance 300 1650 Intake, IV 600 1150 Intake, Oral 600 Output, Urine 300 100 Impression/Plan Impression/Plan Impression/Plan: He is awake and alert in no acute distress. MAXIMUM TEMPERATURE 101.7. Skin reveals no rash. HEENT exam is negative. Neck is supple with no adenopathy. Lungs crackles at the left base. Heart irregular rhythm with no murmur. Abdomen is soft, tender over the suprapubic area, with positive bowel sounds. Back no CVA tenderness. Extremities no cyanosis, clubbing or edema. Neuro is without focality. IMPRESSION This is an elderly gentleman who is a long term resident with dementia, COPD, now on oxygen, atrial fibrillation on Coumadin, came in with altered mental status with mild hypoxemia with a cough and suprapubic tenderness. A CT scan which had been done did show that he may have mild bronchiolitis but only in 1 lobe the right upper lobe. He has previous history of significantly low ejection fraction, CVA, aortic aneurysm, hypertension, hyperlipidemia, previous [place] with multiple stents and CABG, chronic kidney disease and COPD as well. His issues include * Improving Altered mental status and sepsis which appears to be related to sepsis of urological origin however he does have upper lobe bronchiolitis highly suggestive of aspiration-induced lung injury. He may very well have evolving pneumonitis. Patient has been in a long term. He also does have acute sinusitis as noted in the CT which may be also complicating t the issue * Chronic lung disease with copd with no sig copde, now cxr sugg of mild fluid overload * Acute on chronic kidney disease with slight worsening of creatinine * Atrial fibrillation ischemic heart disease with rapid heart rate * Dementia now with worsening mental status * GERD hyperlipidemia * Diabetes RECOMMENDATION * Continue antibiotics as noted and by infectious disease * May need one dose of iv lasix today * Keep oxygen with O2 sat goal of 91-92% * Nebulizer therapy as needed for wheezing * Watch cultures * Watch renal function * Hold systemic steroids Discussed with the
--- NOTE | 2016-09-18 14:02 | PN- Infect Dx ---
Subjective Subjective: Afebrile. He notes bilateral chest pain with coughing, though states his cough has improved. He was moved to Telemetry because of tachycardia and complaints of chest pain Objective Last 24 Hrs of Vital Signs/I&O Vital Signs Date Time Temp Pulse Resp B/P B/P Pulse O2 O2 Flow FiO2 Mean Ox Delivery Rate 09/18 0847 84 110/74 09/18 0847 84 110/74 09/18 0800 Nasal 4.0L Cannula 09/18 0800 97.8 84 20 110/74 96 Nasal 4.0L Cannula 09/18 0009 98.1 98 18 120/64 96 Nasal 3.0L Cannula 09/18 0000 94 Nasal 4.0L Cannula 09/17 1951 98.7 101 18 122/76 95 Nasal 4.0L Cannula 09/17 1730 98.5 120 96 Nasal 4.0L Cannula 09/17 1600 93 Nasal 4.0L Cannula 09/17 1425 97.6 88 20 109/72 93 Nasal 3.5L Cannula Intake & Output 09/18 1600 09/18 0800 09/18 0000 Intake Total 600 1750 Output Total 300 100 Balance 300 1650 Intake, IV 600 1150 Intake, Oral 600 Output, Urine 300 100 Physical Exam Other Physical Findings: He appears comfortable in no acute distress Lungs scattered crackles and rhonchi Heart regular rhythm with no murmur Back left CVA tenderness Extremities no cyanosis, clubbing or edema Results Last 24 Hours of Lab Results: Laboratory Tests 09/18 09/17 0612 1905 Chemistry Sodium (137 - 145 mmol/L) 140 Potassium (3.5 - 5.1 mmol/L) 4.3 Chloride (98 - 107 mmol/L) 113 H Carbon Dioxide (22 - 30 mmol/L) 18 L Anion Gap (5 - 16) 9 BUN (9 - 20 mg/dL) 25 H Creatinine (0.7 - 1.2 mg/dL) 1.3 H Estimated GFR (>60 ml/min) 52 L BUN/Creatinine Ratio (7 - 25 %) 19.2 Magnesium (1.6 - 2.3 mg/dL) 1.9 Troponin I (<0.11 ng/ml) < 0.01 0.01 TSH (0.270 - 4.200 uIU/mL) 2.160 Thyroxine (T4) (4.5 - 10.9 ug/dL) 6.9 Coagulation PT (9.4 - 12.5 SEC) 23.8 H INR (0.90 - 1.17) 2.29 H Last 24 Hours of Nicolas Results: Urine culture September 15 negative Blood cultures September 15 negative Recent Imaging Studies: Chest x-ray September 18 bilateral mild diffuse prominent interstitial lung markings Assessment/Plan Impression: Stable with temperatures and white blood cell count normal on Azithromycin and Ceftazidime Day 3 of treatment for possible urinary tract infection, with pyuria , but with the urine culture negative, versus pneumonia, with increased oxygen requirements, though his CT scan is suggestive of bronchiolitis, with no focal consolidation, versus maxillary sinusitis, with the CT of the head revealing a fluid level in the left maxillary sinus. His pyuria raises concern for an infection in the urinary tract and, with a negative urine culture, feel that an obstruction should be ruled out. Apparently he was unable to tolerate an ultrasound yesterday secondary to his respiratory status, but this will be reattempted today. Suggestion: 1. Would again try to perform a renal ultrasound 2. If unable to perform ultrasound would consider a CT of the abdomen and pelvis 3. Continue Azithromycin and Ceftazidime
--- NOTE | 2016-09-18 15:00 | ULTRASOUND REPORT ---
EXAMINATION: US RETROPERITONEAL COMPLETE (RENAL) CLINICAL INFORMATION: UTI but UCX is negative. COMPARISON: Ultrasound of kidneys 04/27/2015.. CT chest 09/16/2016. Dictated report CT scan abdomen pelvis 07/05/2011. TECHNIQUE: Real-time imaging of the kidneys and bladder. Color Doppler exam used. FINDINGS: Exam limited by bedside technique. RIGHT KIDNEY: 9.9 x 5.5 x 5.7 cm (SAG x AP x TRV). There are in innumerable anechoic cysts. Largest cyst or the upper pole, measuring 10.5 x 7.5 x 7 cm, and lower pole measuring 13.2 x 9 x 8.9 cm. No solid lesion. There is no hydronephrosis. No calculus. There is mild cortical thinning. LEFT KIDNEY: 12.1 x 5.7 x 5.9 cm (SAG x AP x TRV). There are innumerable anechoic cysts. Largest cyst pedunculated at lower pole measuring 14 x 11 x 11.5 cm. No solid lesion. No hydronephrosis. No calculus. There is mild cortical thinning. BLADDER: Bladder is full. No focal lesion. Ureteral jets are not demonstrated. IMPRESSION: 1. No hydronephrosis. 2. Innumerable bilateral anechoic renal cysts. No change since prior ultrasound study 04/27/2015.
[2016-09-18 17:21] VITALS: BP 108/74
--- NOTE | 2016-09-18 20:22 | PN- Att Addend ---
Attending Addendum Attending Brief Note Last evening the patient had chest pain and palpitations, patient was transferred to telemetry was monitored overnight seemed to chest pain is more from coughing. This morning is less cough little brighter his pulse is much better today blood pressure is 110/74 status of few crackles and rhonchi 88 tenderness. Patient was followed by infectious diseases suggest together ultrasound of the kidneys also will get a CAT scan and his troponin was 0.01, his potassium is down to normal cultures are negative so far with a dirty urine still might have had urinary tract infection and sepsis complicated with bronchiolitis possible sinusitis continue antibiotic treatment as per infectious disease Intake & Output 09/18 1600 09/18 0800 09/18 0000 09/17 1600 09/17 0800 09/17 0000 Intake Total 958 228 3070 600 600 Output Total 450 300 100 300 400 300 Balance 068 055 4295 -300 200 300 Intake, IV 399 709 2141 600 600 Intake, Oral 480 600 Number 1 Bowel Movements Output, Urine 450 300 100 300 400 300 Current Medications Sig/Ruthie Start time Last Medication Dose Route Stop Time Status Admin Allopurinol 100 MG DAILY 09/16 1000 AC 09/18 PO 0848 Atorvastatin Calcium 20 MG 1700 09/16 1700 AC 09/18 PO 1706 Azithromycin 500 MG 2100 09/16 2100 AC 09/17 Sodium Chloride 250 ML IV 2127 Benzocaine/Menthol 1 BLANCHE Q2P PRN 09/16 0915 AC PO Benzonatate 100 MG TID 09/16 1032 AC 09/18 PO 1706 Bisacodyl 10 MG AT BEDTIME NEED.. 09/16 0400 AC ND Ceftazidime 1,000 MG Q12 09/16 2200 AC 09/18 IV 0847 Dextrose/Sodium 1,000 ML Q10H 09/16 0430 DC 09/18 Chloride IV 0544 Famotidine 20 MG DAILY 09/16 1000 AC 09/18 PO 0847 Finasteride 5 MG DAILY 09/16 1000 AC 09/18 PO 0847 Furosemide 20 MG ONCE ONE 09/18 1415 DC 09/18 IV 09/18 1416 1448 Insulin Aspart 0 TIDAC 09/16 1700 AC 09/18 SC 1714 Isosorbide 30 MG DAILY 09/16 1000 AC 09/18 Mononitrate PO 0847 Memantine 10 MG BID 09/16 2200 AC 09/18 PO 0847 Metoprolol Succinate 75 MG DAILY 09/16 1000 AC 09/18 PO 0847 Polyethylene Glycol 17 GM ONCE ONE 09/18 0845 DC PO 09/18 0846 Senna/Docusate Sodium 2 TAB ONCE ONE 09/18 0845 DC PO 09/18 0846 Sodium Chloride 1 SPRAY 4 TIMES/DAY 09/16 0343 AC 09/18 DEMARCO 0847 Warfarin Sodium 3 MG COUMADIN 1700 ONE 09/18 1700 DC 09/18 PO 09/18 1701 1706 Laboratory Tests 09/18/16 0612: Anion Gap 9, Estimated GFR 52 L, BUN/Creatinine Ratio 19.2, Magnesium 1.9, Troponin I < 0.01, TSH 2.160, Thyroxine (T4) 6.9, PT 23.8 H, INR 2.29 H 09/17/16 1905: Troponin I 0.01 09/17/16 0747: Anion Gap 9, Estimated GFR 44 L, BUN/Creatinine Ratio 19.3, Magnesium 2.0, PT 19.8 H, INR 1.90 H, CBC w Diff NO MAN DIFF REQ, RBC 3.15 L, MCV 93.1, MCH 30.4, RDW 19.0 H, MPV 6.8 L, Gran % 47.8, Lymphocytes % 31.0, Monocytes % 19.0 H, Eosinophils % 1.9, Basophils % 0.3, Absolute Granulocytes 1.8, Absolute Lymphocytes 1.2, Absolute Monocytes 0.7 H, Absolute Eosinophils 0.1, Absolute Basophils 0, PUBS MCHC 32.6 L Vital Signs Date Time Temp Pulse Resp B/P B/P Pulse O2 O2 Flow FiO2 Mean Ox Delivery Rate 09/18 1721 97.8 86 20 108/74 96 Nasal Cannula 09/18 1600 Nasal 4.0L Cannula 09/18 0847 84 110/74 09/18 0847 84 110/74 09/18 0800 Nasal 4.0L Cannula 09/18 0800 97.8 84 20 110/74 96 Nasal 4.0L Cannula 09/18 0009 98.1 98 18 120/64 96 Nasal 3.0L Cannula 09/18 0000 94 Nasal 4.0L Cannula
--- NOTE | 2016-09-18 23:43 | NUR ---
INFOMRED [employer] MAN BRITTANI THAT PT HAD A 4 BEAT RUN OF VTACH (SEE PAPER CHART FOR STRIP). PT DENIES CHEST PAIN AND NO S/S DISTRESS. VITALS STABLE.
[2016-09-19 00:16] VITALS: BP 120/82
[2016-09-19 08:14] LABS: PT 26.9 SEC (9.4-12.5)
[2016-09-19 08:33] LABS: ABSOLUTE BASOPHIL COUNT 0 /CUMM (0.0-0.2); ABSOLUTE EOSINOPHIL COUNT 0.1 /CUMM (0.0-0.7); ABSOLUTE GRANULOCYTE CT 3.3 /CUMM (1.4-6.5); ABSOLUTE LYMPH COUNT 1.1 /CUMM (1.2-3.4); ABSOLUTE MONOCYTE COUNT 0.8 /CUMM (0.10-0.60); BASOPHIL % 0.4 % (0.0-2.0); EOSINOPHIL % 2.1 % (0-5); GRANULOCYTE % 62.1 % (42.2-75.2); HEMATOCRIT 27.7 % (42-52); MEAN CORPUSCULAR HGB CONC 32.4 G/DL (33.0-37.0); MEAN CORPUSCULAR VOLUME 92.5 FL (80.0-94.0); MEAN PLATELET VOLUME 7.3 FL (7.4-10.4); PLATELET COUNT 181 /CUMM (130-400); RBC DISTRIBUTION WIDTH 18.6 % (11.5-14.5); RED BLOOD CELL CT 2.99 /CUMM (4.70-6.10); WHITE BLOOD CELL COUNT 5.3 /CUMM (4.8-10.8)
[2016-09-19 08:37] VITALS: BP 138/78
--- NOTE | 2016-09-19 10:11 | PN- Housestaff ---
Subjective Follow-up For: Hypoxic Respiratory failure UTI Subjective: Alert this morning. Reports no fevers or chills. Reports better breathing. Does report persistent pain in his ribs posteriorly, secondary to coughing. States having productive "rust" colored sputum. Reports no problems with urination, no burining/frequency. Constipation. Review of Systems Constitutional: Reports: see HPI. Objective Last 24 Hrs of Vital Signs/I&O Vital Signs Date Time Temp Pulse Resp B/P B/P Pulse O2 O2 Flow FiO2 Mean Ox Delivery Rate 09/19 0851 97 110/70 09/19 0850 97 110/70 09/19 0837 97.6 72 19 138/78 97 Nasal 4.0L Cannula 09/19 0800 97 Nasal 4.0L Cannula 09/19 0016 98.7 91 18 120/82 96 Nasal 4.0L Cannula 09/19 0000 Nasal 4.0L Cannula 09/18 1721 97.8 86 20 108/74 96 Nasal Cannula 09/18 1600 Nasal 4.0L Cannula Intake & Output 09/19 1600 09/19 0800 09/19 0000 Intake Total 350 860 Output Total 300 1350 Balance 50 -490 Intake, IV 0 260 Intake, Oral 350 600 Number 0 1 Bowel Movements Output, Urine 300 1350 Physical Exam General Appearance: Alert, Cooperative HEENT: Atraumatic, PERRLA Cardiovascular: Regular Rate, Normal S1, Normal S2 Lungs: Clear to Auscultation, Normal Air Movement Abdomen: Normal Bowel Sounds, Soft, No Tenderness Extremities: No Clubbing, No Cyanosis Current Medications: Current Medications Sig/Ruthie Start time Last Medication Dose Route Stop Time Status Admin Allopurinol 100 MG DAILY 09/16 1000 AC 09/19 PO 0851 Atorvastatin Calcium 20 MG 1700 09/16 1700 AC 09/18 PO 1706 Azithromycin 500 MG 2100 09/16 2100 AC 09/18 Sodium Chloride 250 ML IV 2141 Benzocaine/Menthol 1 BLANCHE Q2P PRN 09/16 0915 AC PO Benzonatate 100 MG TID 09/16 1032 AC 09/19 PO 0858 Bisacodyl 10 MG AT BEDTIME NEED.. 09/16 0400 AC VT Ceftazidime 1,000 MG Q12 09/16 2200 AC 09/19 IV 0852 Dextrose/Sodium 1,000 ML Q10H 09/16 0430 DC 09/18 Chloride IV 0544 Famotidine 20 MG DAILY 09/16 1000 AC 09/19 PO 0850 Finasteride 5 MG DAILY 09/16 1000 AC 09/19 PO 0850 Furosemide 20 MG ONCE ONE 09/18 1415 DC 09/18 IV 09/18 1416 1448 Insulin Aspart 0 TIDAC 09/16 1700 AC 09/18 SC 1714 Isosorbide 30 MG DAILY 09/16 1000 AC 09/19 Mononitrate PO 0850 Memantine 10 MG BID 09/16 2200 AC 09/19 PO 0850 Metoprolol Succinate 75 MG DAILY 09/16 1000 AC 09/19 PO 0851 Sodium Chloride 1 SPRAY 4 TIMES/DAY 09/16 0343 AC 09/18 DEMARCO 2141 Warfarin Sodium 3 MG COUMADIN 1700 ONE 09/18 1700 DC 09/18 PO 09/18 170 1706 Last 24 Hrs of Lab/Nicolas Results Last 24 Hrs of Labs/Mics: Laboratory Tests 09/19/16 0645: Anion Gap 12, Estimated GFR 48 L, BUN/Creatinine Ratio 21.4, PT 26.9 H, INR 2.59 H, CBC w Diff NO MAN DIFF REQ, RBC 2.99 L, MCV 92.5, MCH 30.0, RDW 18.6 H, MPV 7.3 L, Gran % 62.1, Lymphocytes % 20.0 L, Monocytes % 15.4 H, Eosinophils % 2.1, Basophils % 0.4, Absolute Granulocytes 3.3, Absolute Lymphocytes 1.1 L, Absolute Monocytes 0.8 H, Absolute Eosinophils 0.1, Absolute Basophils 0, PUBS MCHC 32.4 L Assessment/Plan Assessment: 86 y/o M with PMHx of Alzheimer's dementia, atrial fibrillation on warfarin and CKD stage III who is BIBA from group home with increasing confusion and lethargy. Problem List: Episode of chest pain, EKG changes and rapid atrial fibrillation Acute hypoxic respiratory failure 2/2 bronchiolitis vs developing pneumonitis Sepsis 2/2 UTI Acute Sinusitis as evidenced from the CT of the head Hyperkalemia, resolved CAD s/p CABG CVA HTN HLD COPD Afib on Coumadin CKD stage 3 DMT2 Alzheimers dementia Plan: - On tele for episode of chest pain. ACS ruled out. Episodes of NSVTs. No further episodes of chest pain. Hemodynamically stable. K and Mg normal. Cardiology consult in place. Discontinue telemetry? after cardiology evaluation. - "Rust" colored sputum in the setting of infectious bronchiolitis. Drop in Hgb noted, monitor closely for hgb and hemodynamics. Send type and screen. Sputum culture not collected. Common bacterial cause of infectious bronchioloitis is Mycoplasma, covered by azithromycin. Other self limiting causes may be viral disease. Treat MSK/chondtritis pain appropriately. Tylenol ATC for four doses. - Renal ultrasound unrevealing of hydronephrosis, multiple cysts noted similar to baseline. UC negative. - Monitor urinary output. - Constipation: Senna S and Miralax. -OOB to chair, physical therapy. - DVT PPx: Coumadin per INR - Code Status: DNR/DNI Problem List: 1. Chest pain Pain Ratin Pain Location: Ribs Pain Goal: Pain 4 or less Pain Plan: Tylenol ATC Tomorrow's Labs & Rationales: Acute infection INR Kidney function Consulting Request: Consulting Specialty: Infectious Disease Consulting Physician: Dr. Fredis Mills MD Consulting Physician: Dr. Fredis Mills MD
--- NOTE | 2016-09-19 10:48 | PN- Pulmonary ---
Subjective HPI/Critical Care Issues: Alert this morning. Reports no fevers or chills. Reports no problems with urination, no burining/frequency. Objective Current Medications: Current Medications Sig/Ruthie Start time Last Medication Dose Route Stop Time Status Admin Allopurinol 100 MG DAILY 09/16 1000 AC 09/19 PO 0851 Atorvastatin Calcium 20 MG 1700 09/16 1700 AC 09/18 PO 1706 Azithromycin 500 MG 2100 09/16 2100 AC 09/18 Sodium Chloride 250 ML IV 2141 Benzocaine/Menthol 1 BLANCHE Q2P PRN 09/16 0915 AC PO Benzonatate 100 MG TID 09/16 1032 AC 09/19 PO 0858 Bisacodyl 10 MG AT BEDTIME NEED.. 09/16 0400 AC VA Ceftazidime 1,000 MG Q12 09/16 2200 AC 09/19 IV 0852 Dextrose/Sodium 1,000 ML Q10H 09/16 0430 DC 09/18 Chloride IV 0544 Famotidine 20 MG DAILY 09/16 1000 AC 09/19 PO 0850 Finasteride 5 MG DAILY 09/16 1000 AC 09/19 PO 0850 Furosemide 20 MG ONCE ONE 09/18 1415 DC 09/18 IV 09/18 1416 1448 Insulin Aspart 0 TIDAC 09/16 1700 AC 09/18 SC 1714 Isosorbide 30 MG DAILY 09/16 1000 AC 09/19 Mononitrate PO 0850 Memantine 10 MG BID 09/16 2200 AC 09/19 PO 0850 Metoprolol Succinate 75 MG DAILY 09/16 1000 AC 09/19 PO 0851 Sodium Chloride 1 SPRAY 4 TIMES/DAY 09/16 0343 AC 09/18 DEMARCO 2141 Warfarin Sodium 3 MG COUMADIN 1700 ONE 09/18 1700 DC 09/18 PO 09/18 1701 1706 Vital Signs & I&O Last 24 Hrs of Vitals and I&O: Vital Signs Date Time Temp Pulse Resp B/P B/P Pulse O2 O2 Flow FiO2 Mean Ox Delivery Rate 09/19 0851 97 110/70 09/19 0850 97 110/70 09/19 0837 97.6 72 19 138/78 97 Nasal 4.0L Cannula 09/19 0800 97 Nasal 4.0L Cannula 09/19 0016 98.7 91 18 120/82 96 Nasal 4.0L Cannula 09/19 0000 Nasal 4.0L Cannula 09/18 1721 97.8 86 20 108/74 96 Nasal Cannula 09/18 1600 Nasal 4.0L Cannula Intake & Output 09/19 1600 09/19 0800 09/19 0000 Intake Total 350 860 Output Total 300 1350 Balance 50 -490 Intake, IV 0 260 Intake, Oral 350 600 Number 0 1 Bowel Movements Output, Urine 300 1350 Laboratory Tests 09/19 09/18 09/17 0645 0612 1905 Chemistry Sodium (137 - 145 mmol/L) 141 140 Potassium (3.5 - 5.1 mmol/L) 4.3 4.3 Chloride (98 - 107 mmol/L) 111 H 113 H Carbon Dioxide (22 - 30 mmol/L) 19 L 18 L Anion Gap (5 - 16) 12 9 BUN (9 - 20 mg/dL) 30 H 25 H Creatinine (0.7 - 1.2 mg/dL) 1.4 H 1.3 H Estimated GFR (>60 ml/min) 48 L 52 L BUN/Creatinine Ratio (7 - 25 %) 21.4 19.2 Magnesium (1.6 - 2.3 mg/dL) 1.9 Troponin I (<0.11 ng/ml) < 0.01 0.01 TSH (0.270 - 4.200 uIU/mL) 2.160 Thyroxine (T4) (4.5 - 10.9 ug/dL) 6.9 Coagulation PT (9.4 - 12.5 SEC) 26.9 H 23.8 H INR (0.90 - 1.17) 2.59 H 2.29 H Hematology CBC w Diff NO MAN DIFF REQ WBC (4.8 - 10.8 /CUMM) 5.3 RBC (4.70 - 6.10 /CUMM) 2.99 L Hgb (14.0 - 18.0 G/DL) 9.0 L Hct (42 - 52 %) 27.7 L MCV (80.0 - 94.0 FL) 92.5 MCH (27.0 - 31.0 PG) 30.0 RDW (11.5 - 14.5 %) 18.6 H Plt Count (130 - 400 /CUMM) 181 MPV (7.4 - 10.4 FL) 7.3 L Gran % (42.2 - 75.2 %) 62.1 Lymphocytes % (20.5 - 51.1 %) 20.0 L Monocytes % (1.7 - 9.3 %) 15.4 H Eosinophils % (0 - 5 %) 2.1 Basophils % (0.0 - 2.0 %) 0.4 Absolute Granulocytes (1.4 - 6.5 /CUMM) 3.3 Absolute Lymphocytes (1.2 - 3.4 /CUMM) 1.1 L Absolute Monocytes (0.10 - 0.60 /CUMM) 0.8 H Absolute Eosinophils (0.0 - 0.7 /CUMM) 0.1 Absolute Basophils (0.0 - 0.2 /CUMM) 0 PUBS MCHC (33.0 - 37.0 G/DL) 32.4 L Microbiology Date/Time Procedure - Status Source Growth 09/17 1454 Respiratory Culture - CAN LOWER RESP Cancelled: SPECIMEN NOT RECEIVED IN LABORATORY 09/17 1454 Gram Stain - CAN LOWER RESP Cancelled: SPECIMEN NOT RECEIVED IN LABORATORY 09/16 2018 Respiratory Culture - CAN LOWER RESP Cancelled: SPECIMEN NOT RECEIVED IN LABORATORY 09/16 2018 Gram Stain - CAN LOWER RESP Cancelled: SPECIMEN NOT RECEIVED IN LABORATORY Impression/Plan Impression/Plan Impression/Plan: He is awake and alert in no acute distress. MAXIMUM TEMPERATURE 101.7. Skin reveals no rash. HEENT exam is negative. Neck is supple with no adenopathy. Lungs crackles at the left base. Heart irregular rhythm with no murmur. Abdomen is soft, tender over the suprapubic area, with positive bowel sounds. Back no CVA tenderness. Extremities no cyanosis, clubbing or edema. Neuro is without focality. IMPRESSION This is an elderly gentleman who is a longterm resident with dementia, COPD, now on oxygen, atrial fibrillation on Coumadin, came in with altered mental status with mild hypoxemia with a cough and suprapubic tenderness. A CT scan which had been done did show that he may have mild bronchiolitis but only in 1 lobe the right upper lobe. He has previous history of significantly low ejection fraction, CVA, aortic aneurysm, hypertension, hyperlipidemia, previous MT with multiple stents and CABG, chronic kidney disease and COPD as well. His issues include * Improving Altered mental status and sepsis which appears to be related to sepsis of urological origin however he does have upper lobe bronchiolitis highly suggestive of aspiration-induced lung injury. He may very well have evolving pneumonitis. Patient has been in a longterm. He also does have acute sinusitis as noted in the CT which may be also complicating t the issue * Chronic lung disease with copd with no sig copde, now cxr sugg of mild fluid overload * Acute on chronic kidney disease with slight worsening of creatinine * Atrial fibrillation ischemic heart disease with rapid heart rate * Dementia now with worsening mental status * GERD hyperlipidemia * Diabetes RECOMMENDATION * Continue antibiotics as noted and by infectious disease, can dc azithro * May need one dose of iv lasix today and change to po in am * Keep oxygen with O2 sat goal of 91-92% * Nebulizer therapy as needed for wheezing * Watch cultures * Watch renal function * Hold systemic steroids Discussed with the
--- NOTE | 2016-09-19 12:24 | PN- Att Addend ---
Attending Addendum Attending Brief Note Patient going down for a repeat chest x-ray. No major new issues. Patient is a febrile his white count is 5300 but no other major changes. Will review the x-ray and then decide if we can start disposition [facility] Current Medications Sig/Ruthie Start time Last Medication Dose Route Stop Time Status Admin Acetaminophen 650 MG Q8 09/19 1100 AC PO 09/20 220 Allopurinol 100 MG DAILY 09/16 1000 AC 09/19 PO 0851 Atorvastatin Calcium 20 MG 1700 09/16 1700 AC 09/18 PO 1706 Azithromycin 500 MG 2100 09/16 2100 AC 09/18 Sodium Chloride 250 ML IV 2141 Benzocaine/Menthol 1 BLANCHE Q2P PRN 09/16 0915 AC PO Benzonatate 100 MG TID 09/16 1032 AC 09/19 PO 0858 Bisacodyl 10 MG AT BEDTIME NEED.. 09/16 0400 AC IL Ceftazidime 1,000 MG Q12 09/16 2200 AC 09/19 IV 0852 Famotidine 20 MG DAILY 09/16 1000 AC 09/19 PO 0850 Finasteride 5 MG DAILY 09/16 1000 AC 09/19 PO 0850 Furosemide 20 MG ONCE ONE 09/18 1415 DC 09/18 IV 09/18 1416 1448 Insulin Aspart 0 TIDAC 09/16 170 AC 09/18 SC 1714 Isosorbide 30 MG DAILY 09/16 1000 AC 09/19 Mononitrate PO 0850 Memantine 10 MG BID 09/16 2200 AC 09/19 PO 0850 Metoprolol Succinate 75 MG DAILY 09/16 1000 AC 09/19 PO 0851 Sodium Chloride 1 SPRAY 4 TIMES/DAY 09/16 0343 AC 09/18 DEMARCO 2141 Warfarin Sodium 3 MG COUMADIN 1700 ONE 09/18 1700 DC 09/18 PO 09/18 1701 1706 Laboratory Tests 09/19/16 0645: Anion Gap 12, Estimated GFR 48 L, BUN/Creatinine Ratio 21.4, PT 26.9 H, INR 2.59 H, CBC w Diff NO MAN DIFF REQ, RBC 2.99 L, MCV 92.5, MCH 30.0, RDW 18.6 H, MPV 7.3 L, Gran % 62.1, Lymphocytes % 20.0 L, Monocytes % 15.4 H, Eosinophils % 2.1, Basophils % 0.4, Absolute Granulocytes 3.3, Absolute Lymphocytes 1.1 L, Absolute Monocytes 0.8 H, Absolute Eosinophils 0.1, Absolute Basophils 0, PUBS MCHC 32.4 L Vital Signs Date Time Temp Pulse Resp B/P B/P Pulse O2 O2 Flow FiO2 Mean Ox Delivery Rate 09/20 0751 97 110/70 09/19 0850 97 110/70 09/19 0837 97.6 72 19 138/78 97 Nasal 4.0L Cannula 09/19 08 97 Nasal 4.0L Cannula
--- NOTE | 2016-09-19 14:03 | RADIOLOGY REPORT ---
EXAMINATION: XR CHEST CLINICAL INFORMATION: Shortness of breath. Evaluate for pneumonia. COMPARISON: Several prior chest x-rays, most recent of which is dated 09/18/2016. TECHNIQUE: 2 views of the chest were obtained. FINDINGS: The patient is status post median sternotomy and CABG surgery. The cardiomediastinal silhouette is enlarged, unchanged. Enlargement and indistinctness of the central pulmonary vessels and streaky perihilar opacities are seen, consistent with mild pulmonary edema. Trace bilateral pleural effusions are also suspected, left greater than right. No focal dense consolidation is present. There is volume loss in the left lower lobe with asymmetric elevation of the left hemidiaphragm. Bony structures are suboptimally assessed due to diffuse osteopenia, but largely unremarkable. IMPRESSION: Findings consistent with mild pulmonary edema with trace bilateral pleural effusions and chronic volume loss in left lung base.
--- NOTE | 2016-09-19 15:36 | PN- Infect Dx ---
Subjective Subjective: Afebrile. He still notes chest discomfort with coughing. Objective Last 24 Hrs of Vital Signs/I&O Vital Signs Date Time Temp Pulse Resp B/P B/P Pulse O2 O2 Flow FiO2 Mean Ox Delivery Rate 09/19 0851 97 110/70 09/19 0850 97 110/70 09/19 0837 97.6 72 19 138/78 97 Nasal 4.0L Cannula 09/19 0800 97 Nasal 4.0L Cannula 09/19 0016 98.7 91 18 120/82 96 Nasal 4.0L Cannula 09/19 0000 Nasal 4.0L Cannula 09/18 1721 97.8 86 20 108/74 96 Nasal Cannula 09/18 1600 Nasal 4.0L Cannula Intake & Output 09/19 1600 09/19 0800 09/19 0000 Intake Total 300 350 860 Output Total 564 735 1558 Balance 50 50 -490 Intake, IV 0 260 Intake, Oral 300 350 600 Number 0 1 Bowel Movements Output, Urine 483 468 2409 Physical Exam Other Physical Findings: He appears comfortable in no acute distress Lungs are clear Heart regular rhythm with no murmur Back no CVA tenderness Extremities no cyanosis, clubbing or edema Results Last 24 Hours of Lab Results: Laboratory Tests 09/19 0645 Chemistry Sodium (137 - 145 mmol/L) 141 Potassium (3.5 - 5.1 mmol/L) 4.3 Chloride (98 - 107 mmol/L) 111 H Carbon Dioxide (22 - 30 mmol/L) 19 L Anion Gap (5 - 16) 12 BUN (9 - 20 mg/dL) 30 H Creatinine (0.7 - 1.2 mg/dL) 1.4 H Estimated GFR (>60 ml/min) 48 L BUN/Creatinine Ratio (7 - 25 %) 21.4 Coagulation PT (9.4 - 12.5 SEC) 26.9 H INR (0.90 - 1.17) 2.59 H Hematology CBC w Diff NO MAN DIFF REQ WBC (4.8 - 10.8 /CUMM) 5.3 RBC (4.70 - 6.10 /CUMM) 2.99 L Hgb (14.0 - 18.0 G/DL) 9.0 L Hct (42 - 52 %) 27.7 L MCV (80.0 - 94.0 FL) 92.5 MCH (27.0 - 31.0 PG) 30.0 RDW (11.5 - 14.5 %) 18.6 H Plt Count (130 - 400 /CUMM) 181 MPV (7.4 - 10.4 FL) 7.3 L Gran % (42.2 - 75.2 %) 62.1 Lymphocytes % (20.5 - 51.1 %) 20.0 L Monocytes % (1.7 - 9.3 %) 15.4 H Eosinophils % (0 - 5 %) 2.1 Basophils % (0.0 - 2.0 %) 0.4 Absolute Granulocytes (1.4 - 6.5 /CUMM) 3.3 Absolute Lymphocytes (1.2 - 3.4 /CUMM) 1.1 L Absolute Monocytes (0.10 - 0.60 /CUMM) 0.8 H Absolute Eosinophils (0.0 - 0.7 /CUMM) 0.1 Absolute Basophils (0.0 - 0.2 /CUMM) 0 PUBS MCHC (33.0 - 37.0 G/DL) 32.4 L Last 24 Hours of Nicolas Results: Blood cultures 2 September 15 remain negative Recent Imaging Studies: Chest x-ray September 19 mild pulmonary edema with trace bilateral pleural effusions and chronic volume loss in the left lung base Renal ultrasound September 18 no hydronephrosis; innumerable bilateral renal cysts Assessment/Plan Impression: Stable with temperatures and white blood cell count remaining normal on Azithromycin and Ceftazidime Day 4 of treatment for possible pneumonia, though his CT scan is more suggestive of bronchiolitis, with no focal consolidation. He was initially felt to have a urinary tract infection, with pyuria and questionable left CVA tenderness, but his urine culture and renal ultrasound are negative. The CT scan of the head did reveal a fluid level in the left maxillary sinus, suggestive of possible sinusitis. His chest x-ray now suggests fluid overload, and he is receiving Lasix. Suggestion: 1. Further management of his fluid status per Medicine 2. Discontinue Azithromycin and Ceftazidime 3. Begin Levaquin 500 milligrams po every 24 hours to complete a seven-day course of antibiotics
[2016-09-19 16:08] VITALS: BP 135/81
--- NOTE | 2016-09-19 18:59 | Cons- Cardiology ---
General Information and HPI Consulting Request Date of Consult: 09/19/16 Requested By: LEONIDES CARBALLO MD Reason for Consult: AF Source of Information: old records Exam Limitations: dementia History of Present Illness: Mr. Peñaloza is a 86 y/o M with PMHx of Alzheimer's disease, COPD on 2L NC, atrial fibrillation on warfarin, CAD s/p CABG and CKD stage III who is BIBA from longterm with increasing confusion and lethargy. Patient is unable to provide any history so the history is obtained through [facility] and old records. Patient was found to be increasingly confused and lethargic at the longterm the night prior to current presentation. According to [facility], he also had a low- grade temperature. EMS was called and patient was noted to be hypoxic en route to the ED. Transferred to telemetry for subooptimal rate control Allergies/Medications Allergies: Coded Allergies: sitagliptin (UNKNOWN 08/08/15) Home Med List: Allopurinol 100 MG TABLET 1 TAB PO DAILY UNKNOWN (Reported) Atorvastatin Calcium 20 MG TABLET 1 TAB PO 1700 CHOLESTEROL (Reported) Finasteride 5 MG TABLET 1 TAB PO DAILY PROSTATE (Reported) Furosemide (Lasix) 20 MG TABLET 1 TAB PO DAILY WATER PILL (Reported) Gabapentin 100 MG CAPSULE 1 CAP PO TID UNKNOWN (Reported) Glimepiride (Amaryl) 2 MG TABLET 1 TAB PO BID DM (Reported) Insulin Lispro (Humalog) 100 UNIT/ML VIAL DIABETES (Reported) Isosorbide Mononitrate (Isosorbide Mononitrate ER) 30 MG TAB.ER.24H 1 TAB PO DAILY HEART (Reported) Levofloxacin (Levaquin) 500 MG TABLET 500 MG PO Q24H Lung infection Continue till 09/26 to complete a 7 day course. Loratadine 10 MG TABLET 1 TAB PO QPM ALLERGIES (Reported) Memantine HCl (Namenda XR) 21 MG CAP.SPR.24 1 CAP PO QPM DEMENTIA (Reported) Metoprolol Succinate 50 MG TAB.ER.24H 1.5 TAB PO DAILY HEART (Reported) Ranitidine (Ranitidine HCl) 150 MG TABLET 1 TAB PO BID GI (Reported) Sodium Chloride (Saline Mist) 0.65 % SPRAY 1 SPRAY DEMARCO 4 TIMES/DAY ALLERGIES (Reported) Warfarin Sodium (Coumadin) 2.5 MG TABLET 1 TAB PO TUWETHSASUN BLOOD THINNER ( Reported) Warfarin Sodium (Coumadin) 2 MG TABLET 2 MG PO MON AND FRI BLOOD THINNER ( Reported) Current Medications: Current Medications Sig/Ruthie Start time Last Medication Dose Route Stop Time Status Admin Acetaminophen 650 MG Q8 09/19 1100 AC 09/19 PO 09/20 2201 1243 Allopurinol 100 MG DAILY 09/16 1000 AC 09/19 PO 0851 Atorvastatin Calcium 20 MG 1700 09/16 1700 AC 09/19 PO 1757 Azithromycin 500 MG 2100 09/16 2100 DC 09/18 Sodium Chloride 250 ML IV 2141 Benzocaine/Menthol 1 BLANCHE Q2P PRN 09/16 0915 AC PO Benzonatate 100 MG TID 09/16 1032 AC 09/19 PO 1757 Bisacodyl 10 MG AT BEDTIME NEED.. 09/16 0400 AC CA Ceftazidime 1,000 MG Q12 09/16 2200 DC 09/19 IV 0852 Famotidine 20 MG DAILY 09/16 1000 AC 09/19 PO 0850 Finasteride 5 MG DAILY 09/16 1000 AC 09/19 PO 0850 Furosemide 20 MG ONCE ONE 09/19 1345 DC 09/19 IV 09/19 1346 1353 Insulin Aspart 0 TIDAC 09/16 1700 AC 09/19 SC 1236 Isosorbide 30 MG DAILY 09/16 1000 AC 09/19 Mononitrate PO 0850 Levofloxacin 500 MG Q24H 09/19 1545 AC 09/19 PO 09/25 1546 1758 Memantine 10 MG BID 09/16 2200 AC 09/19 PO 0850 Metoprolol Succinate 75 MG DAILY 09/16 1000 AC 09/19 PO 0851 Sodium Chloride 1 SPRAY 4 TIMES/DAY 09/16 0343 AC 09/18 DEMARCO 2141 Warfarin Sodium 2 MG COUMADIN 1700 ONE 09/19 1700 DC 09/19 PO 09/19 1701 1757 Past History Travel History Traveled to [place] past 21 day No Medical History Neurological: Alzheimer's disease, CVA, dementia EENT: cataracts Cardiovascular: aortic aneurysm, AFIB, CAD, hypertension, hyperlipidemia, myocardial infarction (3 times), PVD Respiratory: COPD Gastrointestinal: GERD, hiatal hernia Hepatic: NONE Renal: chronic kidney disease Musculoskeletal: gout Psychiatric: NONE Endocrine: diabetes Blood Disorders: NONE Cancer(s): NONE Surgical History Surgical History: CABG, cholecystectomy, cardiac stent placement abdominal aortic aneurysm repair right knee repair TURP Family History Relations & Conditions If Any: SISTER FH: cancer FH: heart disease FATHER FH: heart attack, Onset: 60+. BROTHER FH: heart disease MOTHER FH: diabetes mellitus FH: heart disease Psychosocial History Where Do You Live? Sn[facility] Facility Primary Language: [place]ian Smoking Status: Former Smoker (3 PPD for ~70 Years) ETOH Use: denies use Illicit Drug Use: denies illicit drug use Functional Ability ADLs Needs Assist: dressing, eating, toileting, bathing. Ambulation: wheelchair IADLs Needs Assist: shopping, housework, finances, food prep, telephone, transportation, medication admin. ECHO Results (as available) Report: CONCLUSIONS 1. Mild aortic sclerosis is present in a tricuspid aortic valve with no significant valvular stenosis or insufficiency. 2. Thickening of the mitral leaflets is present with mild to moderate anular calcification and moderate mitral insufficiency with moderate left atrial dilatation. 3. There is no significant pericardial fluid present. 4. The left ventricular chamber size is normal with hypokinesia of the distal septum and hypokinesia to akinesia of the apical segments. The estimated ejection fraction is approximately 35%. 5. Mild dilatation of the right heart chambers is present with moderate tricuspid insufficiency, mild pulmonic insufficiency and pulmonary hypertension with an estimated RV systolic pressure of 65 mmHg. 6. Since the previous study, the LV systolic function has decreased and the severitiy of pulmonary hypertension has worsened. Exam & Diagnostic Data Vital Signs and I&O Vital Signs Date Time Temp Pulse Resp B/P B/P Pulse O2 O2 Flow FiO2 Mean Ox Delivery Rate 09/19 1608 97.7 77 18 135/81 97 Nasal 4.0L Cannula 09/19 0851 97 110/70 09/19 0850 97 110/70 09/19 0837 97.6 72 19 138/78 97 Nasal 4.0L Cannula 09/19 0800 97 Nasal 4.0L Cannula 09/19 0016 98.7 91 18 120/82 96 Nasal 4.0L Cannula 09/19 0000 Nasal 4.0L Cannula Intake & Output 09/19 1600 09/19 0800 09/19 0000 09/18 1600 09/18 0809/18 0000 Intake Total 300 350 860 699 395 1606 Output Total 201 449 3428 450 300 100 Balance 50 50 -490 532 272 4600 Intake, IV 0 260 606 433 0028 Intake, Oral 300 350 600 480 600 Number 0 1 1 Bowel Movements Output, Urine 655 187 6837 450 300 100 Labs/Nicolas Results: Laboratory Tests 09/19 09/18 09/17 0645 0612 1905 Chemistry Sodium (137 - 145 mmol/L) 141 140 Potassium (3.5 - 5.1 mmol/L) 4.3 4.3 Chloride (98 - 107 mmol/L) 111 H 113 H Carbon Dioxide (22 - 30 mmol/L) 19 L 18 L Anion Gap (5 - 16) 12 9 BUN (9 - 20 mg/dL) 30 H 25 H Creatinine (0.7 - 1.2 mg/dL) 1.4 H 1.3 H Estimated GFR (>60 ml/min) 48 L 52 L BUN/Creatinine Ratio (7 - 25 %) 21.4 19.2 Magnesium (1.6 - 2.3 mg/dL) 1.9 Troponin I (<0.11 ng/ml) < 0.01 0.01 TSH (0.270 - 4.200 uIU/mL) 2.160 Thyroxine (T4) (4.5 - 10.9 ug/dL) 6.9 Coagulation PT (9.4 - 12.5 SEC) 26.9 H 23.8 H INR (0.90 - 1.17) 2.59 H 2.29 H Hematology CBC w Diff NO MAN DIFF REQ WBC (4.8 - 10.8 /CUMM) 5.3 RBC (4.70 - 6.10 /CUMM) 2.99 L Hgb (14.0 - 18.0 G/DL) 9.0 L Hct (42 - 52 %) 27.7 L MCV (80.0 - 94.0 FL) 92.5 MCH (27.0 - 31.0 PG) 30.0 RDW (11.5 - 14.5 %) 18.6 H Plt Count (130 - 400 /CUMM) 181 MPV (7.4 - 10.4 FL) 7.3 L Gran % (42.2 - 75.2 %) 62.1 Lymphocytes % (20.5 - 51.1 %) 20.0 L Monocytes % (1.7 - 9.3 %) 15.4 H Eosinophils % (0 - 5 %) 2.1 Basophils % (0.0 - 2.0 %) 0.4 Absolute Granulocytes (1.4 - 6.5 /CUMM) 3.3 Absolute Lymphocytes (1.2 - 3.4 /CUMM) 1.1 L Absolute Monocytes (0.10 - 0.60 /CUMM) 0.8 H Absolute Eosinophils (0.0 - 0.7 /CUMM) 0.1 Absolute Basophils (0.0 - 0.2 /CUMM) 0 PUBS MCHC (33.0 - 37.0 G/DL) 32.4 L Assessment/Plan Assessment/Plan Assessment: 1. Chest pain syndrome 2. Atrial arrhythmia/paroxysmal atrial for ablation 3. Upper respiratory infection/bronchitis Recommendations: -At the moment, the patient's heart rate appears to be well-controlled. -Keep on quality assurance monitor for another 24 hours -Continue current medical regimen. -Optimize all other metabolic parameters as necessary -Further plans in 24 hours. Consult Acknowledgment - Thank you for your consult request.
[2016-09-19 22:33] VITALS: BP 124/78
[2016-09-20 07:55] LABS: ABSOLUTE BASOPHIL COUNT 0 /CUMM (0.0-0.2); ABSOLUTE EOSINOPHIL COUNT 0.1 /CUMM (0.0-0.7); ABSOLUTE GRANULOCYTE CT 3.6 /CUMM (1.4-6.5); ABSOLUTE LYMPH COUNT 0.9 /CUMM (1.2-3.4); ABSOLUTE MONOCYTE COUNT 0.8 /CUMM (0.10-0.60); BASOPHIL % 0.3 % (0.0-2.0); EOSINOPHIL % 1.7 % (0-5); GRANULOCYTE % 65.8 % (42.2-75.2); HEMATOCRIT 29.1 % (42-52); MEAN CORPUSCULAR HGB 30.2 PG (27.0-31.0); MEAN CORPUSCULAR HGB CONC 32.3 G/DL (33.0-37.0); MEAN CORPUSCULAR VOLUME 93.7 FL (80.0-94.0); MEAN PLATELET VOLUME 7.4 FL (7.4-10.4); PLATELET COUNT 182 /CUMM (130-400); RBC DISTRIBUTION WIDTH 19.2 % (11.5-14.5); RED BLOOD CELL CT 3.11 /CUMM (4.70-6.10); WHITE BLOOD CELL COUNT 5.4 /CUMM (4.8-10.8)
[2016-09-20 08:17] LABS: PT 30.6 SEC (9.4-12.5)
[2016-09-20 08:51] VITALS: BP 108/52
--- NOTE | 2016-09-20 10:30 | PN- Pulmonary ---
Subjective HPI/Critical Care Issues: Feels much improved More awake afebrile wants to get out of bed Objective Current Medications: Current Medications Sig/Ruthie Start time Last Medication Dose Route Stop Time Status Admin Acetaminophen 650 MG Q8 09/19 1100 AC 09/20 PO 09/20 2201 0459 Allopurinol 100 MG DAILY 09/16 1000 AC 09/20 PO 1008 Atorvastatin Calcium 20 MG 1700 09/16 1700 AC 09/19 PO 1757 Azithromycin 500 MG 2100 09/16 2100 DC 09/18 Sodium Chloride 250 ML IV 2141 Benzocaine/Menthol 1 BLANCHE Q2P PRN 09/16 0915 AC PO Benzonatate 100 MG TID 09/16 1032 AC 09/20 PO 1008 Bisacodyl 10 MG AT BEDTIME NEED.. 09/[address] Ceftazidime 1,000 MG Q12 09/16 2200 DC 09/19 IV 0852 Famotidine 20 MG DAILY 09/16 1000 AC 09/20 PO 1008 Finasteride 5 MG DAILY 09/16 1000 AC 09/20 PO 1008 Furosemide 20 MG DAILY 09/20 1000 AC 09/20 PO 1008 Furosemide 20 MG ONCE ONE 09/19 1345 DC 09/19 IV 09/19 1346 1353 Insulin Aspart 0 TIDAC 09/16 1700 AC 09/19 SC 1236 Isosorbide 30 MG DAILY 09/16 1000 AC 09/20 Mononitrate PO 1008 Levofloxacin 500 MG Q24H 09/19 1545 AC 09/19 PO 09/25 1546 1758 Memantine 10 MG BID 09/16 2200 AC 09/20 PO 1008 Metoprolol Succinate 75 MG DAILY 09/16 1000 AC 09/20 PO 1008 Sodium Chloride 1 SPRAY 4 TIMES/DAY 09/16 0343 AC 09/18 DEMARCO 2141 Warfarin Sodium 2 MG COUMADIN 1700 ONE 09/19 1700 DC 09/19 PO 09/19 1701 1757 Vital Signs & I&O Last 24 Hrs of Vitals and I&O: Vital Signs Date Time Temp Pulse Resp B/P B/P Pulse O2 O2 Flow FiO2 Mean Ox Delivery Rate 09/20 1008 96 118/58 09/20 1008 96 118/58 09/20 0851 97.3 96 20 108/52 98 Nasal Cannula 09/20 0800 Nasal 4.0L Cannula 09/20 0000 Nasal 4.0L Cannula 09/19 2233 97.8 82 20 124/78 97 Nasal 4.0L Cannula 09/19 1608 97.7 77 18 135/81 97 Nasal 4.0L Cannula Intake & Output 09/20 1600 09/20 0800 09/20 0000 Intake Total 60 130 Output Total 200 200 Balance -140 -70 Intake, IV 10 10 Intake, Oral 50 120 Output, Urine 200 200 Laboratory Tests 09/20 09/19 0620 0645 Chemistry Sodium (137 - 145 mmol/L) 141 141 Potassium (3.5 - 5.1 mmol/L) 4.4 4.3 Chloride (98 - 107 mmol/L) 108 H 111 H Carbon Dioxide (22 - 30 mmol/L) 21 L 19 L Anion Gap (5 - 16) 12 12 BUN (9 - 20 mg/dL) 32 H 30 H Creatinine (0.7 - 1.2 mg/dL) 1.5 H 1.4 H Estimated GFR (>60 ml/min) 44 L 48 L BUN/Creatinine Ratio (7 - 25 %) 21.3 21.4 Coagulation PT (9.4 - 12.5 SEC) 30.6 H 26.9 H INR (0.90 - 1.17) 2.95 H 2.59 H Hematology CBC w Diff NO MAN DIFF REQ NO MAN DIFF REQ WBC (4.8 - 10.8 /CUMM) 5.4 5.3 RBC (4.70 - 6.10 /CUMM) 3.11 L 2.99 L Hgb (14.0 - 18.0 G/DL) 9.4 L 9.0 L Hct (42 - 52 %) 29.1 L 27.7 L MCV (80.0 - 94.0 FL) 93.7 92.5 MCH (27.0 - 31.0 PG) 30.2 30.0 RDW (11.5 - 14.5 %) 19.2 H 18.6 H Plt Count (130 - 400 /CUMM) 182 181 MPV (7.4 - 10.4 FL) 7.4 7.3 L Gran % (42.2 - 75.2 %) 65.8 62.1 Lymphocytes % (20.5 - 51.1 %) 16.6 L 20.0 L Monocytes % (1.7 - 9.3 %) 15.6 H 15.4 H Eosinophils % (0 - 5 %) 1.7 2.1 Basophils % (0.0 - 2.0 %) 0.3 0.4 Absolute Granulocytes (1.4 - 6.5 /CUMM) 3.6 3.3 Absolute Lymphocytes (1.2 - 3.4 /CUMM) 0.9 L 1.1 L Absolute Monocytes (0.10 - 0.60 /CUMM) 0.8 H 0.8 H Absolute Eosinophils (0.0 - 0.7 /CUMM) 0.1 0.1 Absolute Basophils (0.0 - 0.2 /CUMM) 0 0 PUBS MCHC (33.0 - 37.0 G/DL) 32.3 L 32.4 L Microbiology Date/Time Procedure - Status Source Growth 09/17 1454 Respiratory Culture - CAN LOWER RESP Cancelled: SPECIMEN NOT RECEIVED IN LABORATORY 09/17 1454 Gram Stain - CAN LOWER RESP Cancelled: SPECIMEN NOT RECEIVED IN LABORATORY Impression/Plan Impression/Plan Impression/Plan: He is awake and alert in no acute distress. MAXIMUM TEMPERATURE 101.7. Skin reveals no rash. HEENT exam is negative. Neck is supple with no adenopathy. Lungs crackles at the left base. Heart irregular rhythm with no murmur. Abdomen is soft, tender over the suprapubic area, with positive bowel sounds. Back no CVA tenderness. Extremities no cyanosis, clubbing or edema. Neuro is without focality. IMPRESSION This is an elderly gentleman who is a penitentiary resident with dementia, COPD, now on oxygen, atrial fibrillation on Coumadin, came in with altered mental status with mild hypoxemia with a cough and suprapubic tenderness. A CT scan which had been done did show that he may have mild bronchiolitis but only in 1 lobe the right upper lobe. He has previous history of significantly low ejection fraction, CVA, aortic aneurysm, hypertension, hyperlipidemia, previous IL with multiple stents and CABG, chronic kidney disease and COPD as well. His issues include * Improving Altered mental status and sepsis which appears to be related to sepsis of urological origin however he does have upper lobe bronchiolitis highly suggestive of aspiration-induced lung injury. He may very well have evolving pneumonitis. Patient has been in a penitentiary. He also does have acute sinusitis as noted in the CT which may be also complicating t the issue * Chronic lung disease with copd with no sig copde, now cxr sugg of mild fluid overload * Acute on chronic kidney disease with slight worsening of creatinine * Atrial fibrillation ischemic heart disease with rapid heart rate * Dementia now with worsening mental status * GERD hyperlipidemia * Diabetes RECOMMENDATION * Continue antibiotics as noted and by infectious disease * Gentle diuresis * Keep oxygen with O2 sat goal of 91-92% * Nebulizer therapy as needed for wheezing * Watch renal function * Hold systemic steroids * OOB to chair Discussed with the
--- NOTE | 2016-09-20 10:37 | PN- Infect Dx ---
Subjective Subjective: Afebrile. He feels well today. He notes improvement in his cough, with no further chest pain, but does report shortness of breath. Objective Last 24 Hrs of Vital Signs/I&O Vital Signs Date Time Temp Pulse Resp B/P B/P Pulse O2 O2 Flow FiO2 Mean Ox Delivery Rate 09/20 1008 96 118/58 09/20 1008 96 118/58 09/20 0851 97.3 96 20 108/52 98 Nasal Cannula 09/20 0800 Nasal 4.0L Cannula 09/20 0000 Nasal 4.0L Cannula 09/19 2233 97.8 82 20 124/78 97 Nasal 4.0L Cannula 09/19 1608 97.7 77 18 135/81 97 Nasal 4.0L Cannula Intake & Output 09/20 1600 09/20 0800 09/20 0000 Intake Total 60 130 Output Total 200 200 Balance -140 -70 Intake, IV 10 10 Intake, Oral 50 120 Output, Urine 200 200 Physical Exam Other Physical Findings: He appears comfortable in no acute distress Lungs are clear Heart regular rhythm with no murmur Abdomen is soft, nontender with positive bowel sounds Back no CVA tenderness Extremities no cyanosis, clubbing or edema Results Last 24 Hours of Lab Results: Laboratory Tests 09/20 0620 Chemistry Sodium (137 - 145 mmol/L) 141 Potassium (3.5 - 5.1 mmol/L) 4.4 Chloride (98 - 107 mmol/L) 108 H Carbon Dioxide (22 - 30 mmol/L) 21 L Anion Gap (5 - 16) 12 BUN (9 - 20 mg/dL) 32 H Creatinine (0.7 - 1.2 mg/dL) 1.5 H Estimated GFR (>60 ml/min) 44 L BUN/Creatinine Ratio (7 - 25 %) 21.3 Coagulation PT (9.4 - 12.5 SEC) 30.6 H INR (0.90 - 1.17) 2.95 H Hematology CBC w Diff NO MAN DIFF REQ WBC (4.8 - 10.8 /CUMM) 5.4 RBC (4.70 - 6.10 /CUMM) 3.11 L Hgb (14.0 - 18.0 G/DL) 9.4 L Hct (42 - 52 %) 29.1 L MCV (80.0 - 94.0 FL) 93.7 MCH (27.0 - 31.0 PG) 30.2 RDW (11.5 - 14.5 %) 19.2 H Plt Count (130 - 400 /CUMM) 182 MPV (7.4 - 10.4 FL) 7.4 Gran % (42.2 - 75.2 %) 65.8 Lymphocytes % (20.5 - 51.1 %) 16.6 L Monocytes % (1.7 - 9.3 %) 15.6 H Eosinophils % (0 - 5 %) 1.7 Basophils % (0.0 - 2.0 %) 0.3 Absolute Granulocytes (1.4 - 6.5 /CUMM) 3.6 Absolute Lymphocytes (1.2 - 3.4 /CUMM) 0.9 L Absolute Monocytes (0.10 - 0.60 /CUMM) 0.8 H Absolute Eosinophils (0.0 - 0.7 /CUMM) 0.1 Absolute Basophils (0.0 - 0.2 /CUMM) 0 PUBS MCHC (33.0 - 37.0 G/DL) 32.3 L Last 24 Hours of Nicolas Results: No recent cultures Assessment/Plan Impression: Stable with temperatures and white blood cell count remaining normal now on Levaquin Day 5 of treatment for possible pneumonia, though his CT scan is more suggestive of bronchiolitis, with no focal consolidation. The CT scan of the head did reveal a fluid level in the left maxillary sinus, suggestive of possible sinusitis. Suggestion: 1. Further management of his fluid status per Medicine 2. Continue Levaquin to complete a 7 day course of antibiotics
--- NOTE | 2016-09-20 10:44 | PN- Housestaff ---
Subjective Follow-up For: Hypoxic Respiratory failure UTI Infectious bronchiolitis Tele-Events Since Last Visit: A. Fib rate controlled Subjective: Reports improved pain and cough. Dry mucous membranes. Reports good appetite and feeling hungry. No urinray complaints. Review of Systems Constitutional: Reports: see HPI. Objective Last 24 Hrs of Vital Signs/I&O Vital Signs Date Time Temp Pulse Resp B/P B/P Pulse O2 O2 Flow FiO2 Mean Ox Delivery Rate 09/20 1008 96 118/58 09/20 1008 96 118/58 09/20 0851 97.3 96 20 108/52 98 Nasal Cannula 09/20 0800 Nasal 4.0L Cannula 09/20 0000 Nasal 4.0L Cannula 09/19 2233 97.8 82 20 124/78 97 Nasal 4.0L Cannula 09/19 1608 97.7 77 18 135/81 97 Nasal 4.0L Cannula Intake & Output 09/20 1600 09/20 0800 09/20 0000 Intake Total 60 130 Output Total 200 200 Balance -140 -70 Intake, IV 10 10 Intake, Oral 50 120 Output, Urine 200 200 Physical Exam General Appearance: Alert, Oriented X3, Cooperative Cardiovascular: Regular Rate, Normal S1, Normal S2 Lungs: Clear to Auscultation, Normal Air Movement Extremities: No Clubbing, No Cyanosis Current Medications: Current Medications Sig/Ruthie Start time Last Medication Dose Route Stop Time Status Admin Acetaminophen 650 MG Q8 09/19 1100 AC 09/20 PO 09/20 2200 0459 Allopurinol 100 MG DAILY 09/16 1000 AC 09/20 PO 1008 Atorvastatin Calcium 20 MG 1700 09/16 1700 AC 09/19 PO 1757 Azithromycin 500 MG 2100 09/16 2100 DC 09/18 Sodium Chloride 250 ML IV 2141 Benzocaine/Menthol 1 BLANCHE Q2P PRN 09/16 0915 AC PO Benzonatate 100 MG TID 09/16 1032 AC 09/20 PO 1008 Bisacodyl 10 MG AT BEDTIME NEED.. 09/16 0400 AC MN Ceftazidime 1,000 MG Q12 09/16 2200 DC 09/19 IV 0852 Famotidine 20 MG DAILY 09/16 1000 AC 09/20 PO 1008 Finasteride 5 MG DAILY 09/16 1000 AC 09/20 PO 1008 Furosemide 20 MG DAILY 09/20 1000 AC 09/20 PO 1008 Furosemide 20 MG ONCE ONE 09/19 1345 DC 09/19 IV 09/19 1346 1353 Insulin Aspart 0 TIDAC 09/16 1700 AC 09/19 SC 1236 Isosorbide 30 MG DAILY 09/16 1000 AC 09/20 Mononitrate PO 1008 Levofloxacin 500 MG Q24H 09/19 1545 AC 09/19 PO 09/25 1546 1758 Memantine 10 MG BID 09/16 2200 AC 09/20 PO 1008 Metoprolol Succinate 75 MG DAILY 09/16 1000 AC 09/20 PO 1008 Sodium Chloride 1 SPRAY 4 TIMES/DAY 09/16 0343 AC 09/18 DEMARCO 2141 Warfarin Sodium 2 MG COUMADIN 1700 ONE 09/19 1700 DC 09/19 PO 09/19 170 1757 Last 24 Hrs of Lab/Nicolas Results Last 24 Hrs of Labs/Mics: Laboratory Tests 09/20/16 0620: Anion Gap 12, Estimated GFR 44 L, BUN/Creatinine Ratio 21.3, PT 30.6 H, INR 2.95 H, CBC w Diff NO MAN DIFF REQ, RBC 3.11 L, MCV 93.7, MCH 30.2, RDW 19.2 H, MPV 7.4, Gran % 65.8, Lymphocytes % 16.6 L, Monocytes % 15.6 H, Eosinophils % 1.7, Basophils % 0.3, Absolute Granulocytes 3.6, Absolute Lymphocytes 0.9 L, Absolute Monocytes 0.8 H, Absolute Eosinophils 0.1, Absolute Basophils 0, PUBS MCHC 32.3 L Assessment/Plan Assessment: 86 y/o M with PMHx of Alzheimer's dementia, atrial fibrillation on warfarin and CKD stage III who is [facility] with increasing confusion and lethargy. Problem List: Episode of chest pain, EKG changes and rapid atrial fibrillation Acute hypoxic respiratory failure 2/2 bronchiolitis vs developing pneumonitis Sepsis 2/2 UTI Acute Sinusitis as evidenced from the CT of the head Hyperkalemia, resolved CAD s/p CABG CVA HTN HLD COPD Afib on Coumadin CKD stage 3 DMT2 Alzheimers dementia Plan: - On tele for episode of chest pain. ACS ruled out. Episodes of NSVTs. No further episodes of chest pain. Hemodynamically stable. K and Mg normal. Dc tele. Possible discharge later today. - Stable for discharge on Levaquin for 6 more days. -OOB to chair, physical therapy. - DVT PPx: Coumadin per INR - Code Status: DNR/DNI Problem List: 1. Acute respiratory failure with hypoxia Pain Ratin Pain Location: Ribs Pain Goal: Remain pain free Pain Plan: Tylenol Tomorrow's Labs & Rationales: Not needed. Consulting Request: Consulting Specialty: Infectious Disease Consulting Physician: Dr. Fredis Mills MD
[2016-09-20] MEDS ORDERED: LEVAQUIN500 M1 PO (11:21)
--- NOTE | 2016-09-20 13:24 | PN- Cardiology ---
Subjective Subjective: No significant clinical change. Cardiac status stable. Objective Vital Signs and I&Os Vital Signs Date Time Temp Pulse Resp B/P B/P Pulse O2 O2 Flow FiO2 Mean Ox Delivery Rate 09/20 1008 96 118/58 09/20 1008 96 118/58 09/20 0851 97.3 96 20 108/52 98 Nasal Cannula 09/20 0800 Nasal 4.0L Cannula 09/20 0000 Nasal 4.0L Cannula 09/19 2233 97.8 82 20 124/78 97 Nasal 4.0L Cannula 09/19 1608 97.7 77 18 135/81 97 Nasal 4.0L Cannula Intake & Output 09/20 1600 09/20 0800 09/20 0000 09/19 1600 09/19 0800 09/19 0000 Intake Total 60 130 300 350 860 Output Total 200 200 461 243 4339 Balance -140 -70 50 50 -490 Intake, IV 10 10 0 260 Intake, Oral 50 120 300 350 600 Number 0 1 Bowel Movements Output, Urine 200 200 837 001 4221 Current Medications: Current Medications Sig/Ruthie Start time Last Medication Dose Route Stop Time Status Admin Acetaminophen 650 MG .STK-MED ONE 09/20 0459 DC PO 09/20 0500 Acetaminophen 650 MG Q8 09/19 1100 AC 09/20 PO 09/20 2200 0459 Allopurinol 100 MG DAILY 09/16 1000 AC 09/20 PO 1008 Atorvastatin Calcium 20 MG 1700 09/16 1700 AC 09/19 PO 1757 Azithromycin 500 MG 2100 09/16 2100 DC 09/18 Sodium Chloride 250 ML IV 2141 Benzocaine/Menthol 1 BLANCHE Q2P PRN 09/16 0915 AC PO Benzonatate 100 MG TID 09/16 1032 AC 09/20 PO 1008 Bisacodyl 10 MG AT BEDTIME NEED.. 09/16 0400 AC AR Ceftazidime 1,000 MG Q12 09/16 2200 DC 09/19 IV 0852 Famotidine 20 MG DAILY 09/16 1000 AC 09/20 PO 1008 Finasteride 5 MG DAILY 09/16 1000 AC 09/20 PO 1008 Furosemide 20 MG DAILY 09/20 1000 AC 09/20 PO 1008 Furosemide 20 MG ONCE ONE 09/19 1345 DC 09/19 IV 09/19 1346 1353 Insulin Aspart 0 TIDAC 09/16 1700 AC 09/20 SC 1221 Isosorbide 30 MG DAILY 09/16 1000 AC 09/20 Mononitrate PO 1008 Levofloxacin 500 MG Q24H 09/19 1545 AC 09/19 PO 09/25 1546 1758 Memantine 10 MG BID 09/16 2200 AC 09/20 PO 1008 Metoprolol Succinate 75 MG DAILY 09/16 1000 AC 09/20 PO 1008 Sodium Chloride 1 SPRAY 4 TIMES/DAY 09/16 0343 AC 09/18 DEMARCO 2141 Warfarin Sodium 2 MG COUMADIN 1700 ONE 09/19 1700 DC 09/19 PO 09/19 1701 1757 Results Last 48 Hrs of Labs/Mics: Laboratory Tests 09/20/16 0620: Anion Gap 12, Estimated GFR 44 L, BUN/Creatinine Ratio 21.3, PT 30.6 H, INR 2.95 H, CBC w Diff NO MAN DIFF REQ, RBC 3.11 L, MCV 93.7, MCH 30.2, RDW 19.2 H, MPV 7.4, Gran % 65.8, Lymphocytes % 16.6 L, Monocytes % 15.6 H, Eosinophils % 1.7, Basophils % 0.3, Absolute Granulocytes 3.6, Absolute Lymphocytes 0.9 L, Absolute Monocytes 0.8 H, Absolute Eosinophils 0.1, Absolute Basophils 0, PUBS MCHC 32.3 L 09/19/16 0645: Anion Gap 12, Estimated GFR 48 L, BUN/Creatinine Ratio 21.4, PT 26.9 H, INR 2.59 H, CBC w Diff NO MAN DIFF REQ, RBC 2.99 L, MCV 92.5, MCH 30.0, RDW 18.6 H, MPV 7.3 L, Gran % 62.1, Lymphocytes % 20.0 L, Monocytes % 15.4 H, Eosinophils % 2.1, Basophils % 0.4, Absolute Granulocytes 3.3, Absolute Lymphocytes 1.1 L, Absolute Monocytes 0.8 H, Absolute Eosinophils 0.1, Absolute Basophils 0, PUBS MCHC 32.4 L Assessment/Plan Assessment/Plan Assessment: 1. Chest pain syndrome 2. Upper respiratory infection/bronchitis 3. History of atrial arrhythmias/atrial fibrillation 4. Recommendations: -At the moment, the patient appears currently stable from a cardiac standpoint. -The patient can come off of telemetry and, appear stable for discharge from a cardiac standpoint. -The patient can follow-up with me in the office in 2-4 weeks. Continue telemetry? No
[2016-09-20 14:14] VITALS: BP 118/58
== END 2016-09-20 14:40 | DRG 871 ==
LOC: ERH 22:32 → 2NB 09-16 00:11 → ERHI 09-16 00:11 → ENRESERV 09-16 02:07 → 2NB 09-16 03:26 → 1NO 09-17 19:44 → ENPENDDIS 09-20 11:21 → 1NO 09-20 14:40
PROVIDERS: Internal Medicine; Internal Medicine Hematology & Oncology; Pediatrics; Student in an Organized Health Care Education/Training Program; ADMIT Internal Medicine
DX: A41.9 Sepsis, unspecified organism (principal); J96.01 Acute respiratory failure with hypoxia; G93.41 Metabolic encephalopathy; N17.9 Acute kidney failure, unspecified; J18.9 Pneumonia, unspecified organism; J44.0 Chronic obstructive pulmonary disease with (acute) lower respiratory infection; E11.22 Type 2 diabetes mellitus with diabetic chronic kidney disease; N18.3 Chronic kidney disease, stage 3 (moderate); I48.2 Chronic atrial fibrillation; R04.2 Hemoptysis; E87.5 Hyperkalemia; F02.80 Dementia in other diseases classified elsewhere, unspecified severity, without behavioral disturbance, psychotic disturbance, mood disturbance, and anxiety; G30.9 Alzheimer's disease, unspecified; I73.9 Peripheral vascular disease, unspecified; J21.9 Acute bronchiolitis, unspecified; Z79.01 Long term (current) use of anticoagulants; I25.10 Atherosclerotic heart disease of native coronary artery without angina pectoris; Z95.1 Presence of aortocoronary bypass graft; I25.2 Old myocardial infarction; I12.9 Hypertensive chronic kidney disease with stage 1 through stage 4 chronic kidney disease, or unspecified chronic kidney disease; R07.9 Chest pain, unspecified; K59.00 Constipation, unspecified; Z86.73 Personal history of transient ischemic attack (TIA), and cerebral infarction without residual deficits; K21.9 Gastro-esophageal reflux disease without esophagitis; Z66 Do not resuscitate; J01.00 Acute maxillary sinusitis, unspecified; K44.9 Diaphragmatic hernia without obstruction or gangrene; M10.9 Gout, unspecified; N40.0 Benign prostatic hyperplasia without lower urinary tract symptoms; Z79.4 Long term (current) use of insulin; Z87.891 Personal history of nicotine dependence
CPT/HCPCS: 1NSP; 2NSBP; 36415; 76775; 81001; 82436; 87040; 87070; 87086; 87449; 87450; 93005; 93010; 96374; 97110-GO; 97161-GP; 97530-GO; 99291; J0131; J0456; J0696; J0713; J1815; J1940; J3370; J7040; J7042

== ENCOUNTER 2016-10-11 14:45 | Emergency (ER) | payer OTHER, MEDICARE ==
[~2016-10-11] VITALS: Ht 157.5 cm; Wt 74.8 kg
[~2016-10-11 14:45] MED LIST changes: +COUMADIN2 M1 PO; +LEVAQUIN500 M1 PO
--- NOTE | 2016-10-11 14:49 | ED GENERAL ADULT ---
History of Present Illness General Chief Complaint: Fall Stated Complaint: FALL Source: patient, family Exam Limitations: confusion, dementia, poor historian Vital Signs & Intake/Output Vital Signs & Intake/Output Vital Signs Date Time Temp Pulse Resp B/P B/P Pulse O2 O2 Flow FiO2 Mean Ox Delivery Rate 10/11 1718 97.0 60 16 138/62 97 Room Air 10/11 1452 96.6 67 18 143/68 98 Nasal 4.0L Cannula Allergies Coded Allergies: sitagliptin (UNKNOWN 08/08/15) Reconcile Medications Allopurinol 100 MG TABLET 1 TAB PO DAILY UNKNOWN (Reported) Atorvastatin Calcium 20 MG TABLET 1 TAB PO 1700 CHOLESTEROL (Reported) Finasteride 5 MG TABLET 1 TAB PO DAILY PROSTATE (Reported) Furosemide (Lasix) 20 MG TABLET 1 TAB PO DAILY WATER PILL (Reported) Gabapentin 100 MG CAPSULE 1 CAP PO TID UNKNOWN (Reported) Glimepiride (Amaryl) 2 MG TABLET 1 TAB PO BID DM (Reported) Insulin Lispro (Humalog) 100 UNIT/ML VIAL DIABETES (Reported) Isosorbide Mononitrate (Isosorbide Mononitrate ER) 30 MG TAB.ER.24H 1 TAB PO DAILY HEART (Reported) Levofloxacin (Levaquin) 500 MG TABLET 500 MG PO Q24H Lung infection Continue till 09/26 to complete a 7 day course. Loratadine 10 MG TABLET 1 TAB PO QPM ALLERGIES (Reported) Memantine HCl (Namenda XR) 21 MG CAP.SPR.24 1 CAP PO QPM DEMENTIA (Reported) Metoprolol Succinate 50 MG TAB.ER.24H 1.5 TAB PO DAILY HEART (Reported) Ranitidine (Ranitidine HCl) 150 MG TABLET 1 TAB PO BID GI (Reported) Sodium Chloride (Saline Mist) 0.65 % SPRAY 1 SPRAY DEMARCO 4 TIMES/DAY ALLERGIES (Reported) Warfarin Sodium (Coumadin) 2.5 MG TABLET 1 TAB PO DAILY BLOOD THINNER ( Reported) Warfarin Sodium (Coumadin) 2 MG TABLET 2 MG PO MON AND FRI BLOOD THINNER ( Reported) Triage Nurses Notes Reviewed? yes Onset: Abrupt Duration: hour(s): Timing: recent history HPI: 10/11/16 86-year-old man presents to the emergency department status post fall. Apparently he tried to get out of bed and fell to the ground. He did hit his head. He is on Coumadin. He also complains of thoracic back pain. The onset of the symptoms were abrupt, the duration was just today, the severity is significant; as his symptoms required him to come to the emergency department for care. He has a past medical history of COPD and dementia. Past History Medical History Any Pertinent Medical History? see below for history Neurological: Alzheimer's disease, CVA, dementia EENT: cataracts Cardiovascular: aortic aneurysm, AFIB, CAD, hypertension, hyperlipidemia, myocardial infarction (3 times), PVD Respiratory: COPD Gastrointestinal: GERD, hiatal hernia Hepatic: NONE Renal: chronic kidney disease Musculoskeletal: gout Psychiatric: NONE Endocrine: diabetes Blood Disorders: NONE Cancer(s): NONE History of MRSA: No History of VRE: No History of CDIFF: No Surgical History Surgical History: CABG, cholecystectomy, cardiac stent placement abdominal aortic aneurysm repair right knee repair TURP Psychosocial History Who do you live with Spouse What is your primary language Kitt[place] Family History Family History, If Any: SISTER FH: cancer FH: heart disease FATHER FH: heart attack, Onset: 60+. BROTHER FH: heart disease MOTHER FH: diabetes mellitus FH: heart disease Hx Contributory? No Review of Systems Review of Systems Constitutional: Denies: fever. EENTM: Denies: visual changes. Respiratory: Denies: short of breath. Cardiovascular: Denies: chest pain. GI: Denies: abdominal pain. Genitourinary: Reports: no symptoms. Musculoskeletal: Reports: no symptoms. Skin: Reports: no symptoms. Neurological/Psychological: Reports: confusion. Hematologic/Endocrine: Denies: bruising, bleeding. Immunologic/Allergic: Reports: no symptoms. Physical Exam Physical Exam General Appearance: alert, awake, anxious, mild distress Head: tenderness Eyes: Bilateral: normal appearance, PERRL, EOMI. Ears, Nose, Throat: normal ENT inspection Neck: normal inspection, supple, full range of motion Respiratory: normal breath sounds, chest non-tender, no respiratory distress Cardiovascular: regular rate/rhythm Peripheral Pulses: 3+ radial (R), 3+ radial (L) Gastrointestinal: non-tender Back: vertebral tenderness, decreased range of motion Extremities: pedal edema Neurologic/Psych: alert, confused, no focal weakness Skin: intact, normal color, warm/dry Core Measures ACS in differential dx? No CVA/TIA Diagnosis: No Severe Sepsis Present: No Septic Shock Present: No Progress Differential Diagnoses I considered the following diagnoses in my evaluation of the patient: Fracture, intracranial bleed, intra-abdominal injury Plan of Care: Orders Procedure Date/time Status Regular Diet 10/12 B Active TROPONIN LEVEL 10/11 1639 Complete PROTHROMBIN TIME 10/11 1639 Complete COMPREHENSIVE METABOLIC PANEL 10/11 1639 Complete CBC WITHOUT DIFFERENTIAL 10/11 1639 Complete EKG 10/11 1639 Active Laboratory Tests 10/11/16 1730: Anion Gap 10, Estimated GFR 41 L, BUN/Creatinine Ratio 17.5, Glucose 85, Calcium 8.5, Total Bilirubin 0.5, AST 21, ALT 34, Alkaline Phosphatase 157 H, Troponin I < 0.01, Total Protein 7.1, Albumin 3.2 L, Globulin 3.9, Albumin/ Globulin Ratio 0.8 L, PT 21.8 H, INR 2.09 H, CBC w Diff NO MAN DIFF REQ, RBC 3.06 L, MCV 92.6, MCH 30.0, RDW 19.0 H, MPV 6.4 L, Gran % 61.2, Lymphocytes % 18.6 L, Monocytes % 13.1 H, Eosinophils % 6.6 H, Basophils % 0.5, Absolute Granulocytes 3.8, Absolute Lymphocytes 1.2, Absolute Monocytes 0.8 H, Absolute Eosinophils 0.4, Absolute Basophils 0, PUBS MCHC 32.4 L Pre-Hospital EKG: NSR Initial ED EKG: NSR, nonspecific ST T wave chg, RBBB Departure Departure Disposition: STILL A PATIENT Condition: Stable Clinical Impression Primary Impression: Fall Secondary Impressions: Arthritis, Back strain, Dementia Referrals: LEONIDES CARBALLO MD (PCP/Family) Departure Forms: Customer Survey General Discharge Information Comments CT scan of the head and lumbar and thoracic spine results shown below IMPRESSION: 1. No acute intracranial abnormality. Generalized parenchymal volume loss with proportional prominence of the sulci and ventricles. Areas of hypoattenuation within the periventricular and deep cortical white matter are nonspecific but may reflect mild to moderate chronic microvascular ischemia. 2. Demineralization of the visualized bones. Otherwise, no acute fracture or subluxation of the thoracolumbar spine. Vertebral body heights are grossly preserved. 3. Patchy groundglass opacities within the bilateral lungs with diffuse interlobular septal thickening and bilateral pleural effusions. These findings are nonspecific but may reflect interstitial pulmonary edema as well as alveolar edema in the appropriate clinical setting. Infection cannot be excluded. 4. Partially visualized large bilateral renal cortical cysts, as described above. DICTATED BY: SABRINA RILEY MD DATE/TIME DICTATED:10/11/161722 PRISON OFFICER:ESTRELLA DATE/TIME TRANSCRIBED:10/11/161722 CONFIDENTIAL, DO NOT COPY WITHOUT APPROPRIATE AUTHORIZATION. <Electronically signed in Other Vendor System> SIGNED BY: SABRINA RILEY MD 10/11/161741 Labs reveal no changes from old. CT scan negative for fracture or intracranial bleed. Pulse ox 98% on room air. The patient was transported back to the facility. He did have back discomfort he was prescribed one Percocet every 12 hours as needed for pain not responding to Tylenol., PA/TOWER ATTENDANT Co-Sign Statement Statement: ED Attending supervision documentation- [x] I saw and evaluated the patient. I have also reviewed all the pertinent lab results and diagnostic results. I agree with the findings and the plan of care as documented in the PA's/TOWER ATTENDANT's documentation. [] I have reviewed the ED Record and agree with the PA's/TOWER ATTENDANT's documentation. [] Additions or exceptions (if any) to the PAs/TOWER ATTENDANT's note and plan are summarized below: [] Critical Care Note Critical Care Note Critical Care Time: non-applicable
[2016-10-11 17:18] VITALS: BP 138/62
[2016-10-11 17:40] LABS: ABSOLUTE BASOPHIL COUNT 0 /CUMM (0.0-0.2); ABSOLUTE EOSINOPHIL COUNT 0.4 /CUMM (0.0-0.7); ABSOLUTE GRANULOCYTE CT 3.8 /CUMM (1.4-6.5); ABSOLUTE LYMPH COUNT 1.2 /CUMM (1.2-3.4); ABSOLUTE MONOCYTE COUNT 0.8 /CUMM (0.10-0.60); BASOPHIL % 0.5 % (0.0-2.0); EOSINOPHIL % 6.6 % (0-5); GRANULOCYTE % 61.2 % (42.2-75.2); HEMATOCRIT 28.3 % (42-52); MEAN CORPUSCULAR HGB CONC 32.4 G/DL (33.0-37.0); MEAN CORPUSCULAR VOLUME 92.6 FL (80.0-94.0); MEAN PLATELET VOLUME 6.4 FL (7.4-10.4); PLATELET COUNT 205 /CUMM (130-400); RED BLOOD CELL CT 3.06 /CUMM (4.70-6.10); WHITE BLOOD CELL COUNT 6.3 /CUMM (4.8-10.8)
--- NOTE | 2016-10-11 17:42 | CT SCAN REPORT ---
EXAMINATION: CT HEAD, THORACIC AND LUMBAR SPINE WITHOUT CONTRAST CLINICAL INFORMATION: Back pain following fall. Head trauma. Currently on Coumadin. COMPARISON: Noncontrast head CT 09/15/2016. CT abdomen and pelvis without contrast 10/15/2010. TECHNIQUE: Contiguous axial CT images of the head as well as of the thoracolumbar spine were obtained without intravenous contrast. 2-D coronal and sagittal reformatted images of the thoracolumbar spine were obtained at the acquisition workstation. DLP: 2151 mGy-cm. FINDINGS: Head: Noncontrast CT imaging of the brain demonstrates age-appropriate generalized parenchymal volume loss with proportional prominence of the sulci and ventricles. There is no acute intracranial hemorrhage, mass or mass effect or abnormal extra-axial fluid collections. There are no focal areas of hypoattenuation in a vascular distribution to suggest acute transcortical ischemia. Areas of hypoattenuation within the periventricular and deep cortical white matter are nonspecific but could reflect sequela of moderate chronic microvascular ischemia. No acute calvarial abnormality. The mastoid air cells and visualized portions of the paranasal sinuses are well-aerated. Thoracolumbar spine: Multiple views of the thoracolumbar spine demonstrate diffuse demineralization of the visualized bones. There are mild multilevel degenerative changes of the thoracolumbar spine without acute fracture or subluxation. Vertebral body heights appear grossly preserved. Paravertebral soft tissues appear unremarkable. There is normal alignment of the imaged thoracolumbar spine. There are no visible destructive osseous lesions. Evaluation of the included bilateral lungs demonstrates small bilateral pleural effusions, left greater than right. There are diffuse ground glass opacities within the bilateral lungs with smooth interlobular septal thickening. This may reflect interstitial pulmonary edema as well as alveolar edema in the appropriate clinical setting. There is an ill-defined hypoattenuating lesion within the left thyroid lobe measuring approximately 7 mm. Within the abdomen, there are multiple hypoattenuating lesions within the bilateral kidneys, favored corresponds to bilateral renal cortical cysts. For instance, within the left kidney, there is a 5.9 x 7.0 cm renal cortical cyst. There is a partially visualized 5.6 x 7.4 cm renal cortical cyst within the right kidney. Also noted is a prominent right-sided extrarenal pelvis. There is scattered diverticulosis of the imaged large bowel without secondary signs of acute diverticulitis within the imaged portions of the abdomen and pelvis. IMPRESSION: 1. No acute intracranial abnormality. Generalized parenchymal volume loss with proportional prominence of the sulci and ventricles. Areas of hypoattenuation within the periventricular and deep cortical white matter are nonspecific but may reflect mild to moderate chronic microvascular ischemia. 2. Demineralization of the visualized bones. Otherwise, no acute fracture or subluxation of the thoracolumbar spine. Vertebral body heights are grossly preserved. 3. Patchy groundglass opacities within the bilateral lungs with diffuse interlobular septal thickening and bilateral pleural effusions. These findings are nonspecific but may reflect interstitial pulmonary edema as well as alveolar edema in the appropriate clinical setting. Infection cannot be excluded. 4. Partially visualized large bilateral renal cortical cysts, as described above.
[2016-10-11 18:17] LABS: PT 21.8 SEC (9.4-12.5)
== END 2016-10-11 19:24 ==
LOC: ERH 14:45
PROVIDERS: Emergency Medicine
DX: M19.90 Unspecified osteoarthritis, unspecified site (principal); F03.90 Unspecified dementia, unspecified severity, without behavioral disturbance, psychotic disturbance, mood disturbance, and anxiety; W06.XXXA Fall from bed, initial encounter; Y93.89 Activity, other specified; Y92.9 Unspecified place or not applicable
CPT/HCPCS: 93005; 93010